=== PATIENT | female | born 1960 | race Caucasian/White ===

== ENCOUNTER 2022-04-23 07:30 | Outpatient (RCR) | payer MEDICARE, BC, SELFPAY ==
--- NOTE | 2022-03-28 08:25 | PT.OPEX ---
PT [place] Outpatient Eval PT [facility] Outpatient Eval Start: 03/28/22 07:15 Freq: Status: Active Protocol: Document 03/28/22 07:15 PAOLA (Rec: 03/28/22 08:21 PAOLA [id number]) E-signed By Krista Rosenberg, PT Physical Therapy Outpatient Evaluation Insurance Information Recert Due Date 06/22/22 Insurance Name Medicare B,Blue [employer] Medical Diagnosis Right shoulder bursitis Treating Diagnosis Right shoulder pain, limited shoulder ROM, gross UE weakness Referring MD Smith Subjective Subjective Paola reports to PT with gradual and insidious onset of right shoulder pain for about 2 months. Pain is located in anterior and lateral aspects of the shoulder. Denies radicular symptoms. Mild R sided neck pain. Pain is aggravated by reaching overhead, lifting >10lb, sleeping on right shoulder and reaching behind her back. Alleviated with heat and tylenol. She has not tried anything else for this yet. 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 PMH: diabetes, depression, fibromyalgia, arthritis, osteoporosis x-ray: AP, Transscapular Y, and Axillary views of the right shoulder were obtained today. These show no glenohumeral joint space narrowing or osteophytic spurring, no proximal migration of the humeral head. No obvious fracture or pathologic lesion. There may be a tiny focus of calcific tendinitis at the supraspinatus insertion, seen only on the axillary view. Pain Comments 8/10 worst reaching and lifting 2-3/10 constant Date of Last Physician Visit 02/26/22 Current Work Status Retired Objective Other/Pertinent Objective IE: Standing UE AROM (R/L): -ER0: 70/70 no pain -Abd: 112 painful/168 -FF: 105 painful/170 -Functional IR: T10 painful/T3 -Functional ER occiput difficult to achieve position/ C7 PROM R -flexion 112 empty end feel, painful -abd 115 empty end feel, painful UE Strength (R/L): -ER0: R: 4+/5 no pain, L: 4+/5 -IR0: R: 5/5 no pain, L: 5/5 -FF: R: 4-/5 anterior shoulder pain, L: 5/5 -Abduction: R: 4-/5 lateral shoulder pain, L: 4+/5 -Mid Trap: R: 4/5, L: 4+/5 -Lower Trap: R: 4-/5, L: 4+/5 Impingement: -[place]: + R Labral: -Modified Tnog?s: - Bicep Tendon: -Speeds: + R Rotator Cuff: -Drop Arm Test: - -ER Lag:- -Belly Press:- Instability: -A/P load and shift: - Functional Test Performed & Score QuickDASH IE: 63.6 Assessment Assessment/Impression Patient is a 62 year old female presenting to physical therapy for evaluation and treatment of right shoulder pain. Patient presents with Right shoulder pain, limited shoulder ROM, gross UE weakness consistent with shoulder impingement and bicep /supraspinatus tendonitis. These impairments are limiting the patients ability to reach overhead, reach behind her back, sleep on R shoulder, lift >10lb. Patient appears motivated to participate in PT and presents with good prognosis to improve mobility, strength, proprioception and return to functional activities with skilled physical therapy intervention. Primary Functional Limitations reach overhead, reach behind her back, sleep on R shoulder, lift >10lb Plan of Care Rehabilitation Potential Good Physical Therapy Goals In 4 weeks (04/25/22) Patient demonstrates 145 degrees of shoulder flexion for ability to reach overhead into a high shelf, dress, and bathe without limitation. patient is able to sleep, including on shoulder, with waking 0-1 times per night In 8 weeks (05/23/22) Pt will demonstrate consistent HEP compliance to ensure progress in reaching established goals during course of care. Pt will exhibit 15-20 point improvement in QuickDASH Outcome measure to demonstrate functional improvement and progress towards goals. Pt will exhibit RC, GH, and periscapular strength no less than 4+/5 in order to lift and carry up to 20lb Treatment Plan/Direct Interventions Joint Mobilization,Manual Therapy,Neuromuscular Re-ed, Self-Care/Home Management, Therapeutic Activities, Therapeutic Exercises Frequency/Duration 1x/wk for 4 weeks with additional 4 sessions prn based on progress Patient Will Be Discharged From Therapy Completion of LTG(s), Independent w/HEP, Independently Progressing Evaluation Billing Untimed Code Treatment Minutes 25 Complexity Low Certification Information Initial Certification Date 03/28/22 Ending Certification Date 06/22/22 Provider Signature Shows Agreement With POC & Medical Necessity Physician Signature & Date Requested Please Sign/Date Here Physician Comment/Change : Physician NPI Number #
== END 2022-04-23 12:42 | disposition home or self-care (01) ==
PROVIDERS: PCP Family Medicine; Visit Provider Orthopaedic Surgery
DX: M75.51 Bursitis of right shoulder (principal); Z51.89 Encounter for other specified aftercare
CPT/HCPCS: 97110; 97161

== ENCOUNTER 2022-07-16 15:03 | Emergency (ER) | payer MEDICARE, BC, SELFPAY ==
[2022-07-16 15:08] VITALS: BP 142/78; RESP 16; TEMP 36.4; O2SAT 99; BMI 24.6
--- NOTE | 2022-07-16 15:15 | ED_ITS ---
HPI - General Adult General Time Seen by Provider: 15:16 Date Seen: 07/16/22 Chief complaint: Neuro Symptoms/Altered Deficit Stated complaint: Slurred speech L side facial droop Time Seen by Provider: 07/16/22 15:04 Source: patient Mode of arrival: ambulatory Limitations: no limitations History of Present Illness HPI narrative: Patient is a 62-year-old female has been having difficulty eating with drooling out of her left mouth, some slurring of her speech for about 2 weeks. She was at her therapist this morning whom prompted her to get evaluated. She contacted the clinic and they referred her here. She has had symptoms for 2 weeks now. She did not bring it up but when asked her if her left eye is bothering her or feeling dry, she did admit that it feels dry. There is no head trauma, no fevers chills, no history of Lyme disease, no palpitations or sense of irregular heartbeat. When questioned about arms and legs working fine, she states she is limping on her left side. She states she is not having any pain. She is notably walking normal here when I watch her. Does not note any loss of taste on the left side but states she has only been chewing on the right side of her mouth with these symptoms. Denies any ear pain or ear symptoms with this. She feels at times she is having difficulty with getting words out as she mumbles them or cannot articulate them as well. Related Data Home Medications Medication Instructions Recorded Confirmed albuterol sulfate 90 mcg/actuation g inhalation 02/24/22 02/26/22 aerosol inhaler alprazolam 0.25 mg tablet 0.25 mg PO 02/24/22 02/26/22 atorvastatin 40 mg tablet 40 mg PO 02/24/22 02/26/22 baclofen 10 mg tablet 10 mg PO 02/24/22 02/26/22 hyoscyamine sulfate 0.125 mg 0.125 mg PO 02/24/22 02/26/22 sublingual tablet lamotrigine 100 mg tablet 100 mg PO 02/24/22 02/26/22 lansoprazole 30 mg capsule,delayed 30 mg PO 02/24/22 02/26/22 release levothyroxine 88 mcg tablet 88 mcg PO 02/24/22 02/26/22 meclizine 25 mg tablet 25 mg PO 02/24/22 02/26/22 mirtazapine 7.5 mg tablet 7.5 mg PO 02/24/22 02/26/22 montelukast 10 mg tablet 10 mg PO 02/24/22 02/26/22 montelukast 10 mg tablet 10 mg PO .Bedtime 02/24/22 02/26/22 ondansetron 4 mg disintegrating 4 mg PO PRN 02/24/22 02/26/22 tablet risperidone 0.25 mg tablet 0.25 mg PO 02/24/22 02/26/22 rizatriptan 10 mg tablet 10 mg PO 02/24/22 02/26/22 spironolactone 25 mg tablet 25 mg PO 02/24/22 02/26/22 sucralfate 1 gram tablet 1 g PO 02/24/22 02/26/22 temazepam 30 mg capsule 30 mg PO 02/24/22 02/26/22 Previous Rx's Medication Instructions Recorded prednisone 20 mg tablet 60 mg PO DAILY 7 days #21 tabs 07/16/22 Allergies Allergy/AdvReac Type Severity Reaction Status Date / Time dapagliflozin [From [facility]] Allergy Severe infections Verified 07/16/22 15:12 adhesive Allergy Verified 07/16/22 15:12 aripiprazole Allergy Verified 07/16/22 15:12 aspirin Allergy Verified 07/16/22 15:12 caffeine Allergy Verified 07/16/22 15:12 codeine Allergy Verified 07/16/22 15:12 fluconazole Allergy Verified 07/16/22 15:12 iodine Allergy Verified 07/16/22 15:12 metformin Allergy Verified 07/16/22 15:12 oxcarbazepine Allergy Verified 07/16/22 15:12 pregabalin Allergy Verified 07/16/22 15:12 Quinolones Allergy Verified 07/16/22 15:12 rosuvastatin Allergy Verified 07/16/22 15:12 Sulfa (Sulfonamide Allergy Verified 07/16/22 15:12 Antibiotics) tramadol Allergy Verified 07/16/22 15:12 verapamil Allergy Verified 07/16/22 15:12 Theophyllines Allergy Uncoded 02/26/22 08:49 Review of Systems Status of ROS: Reports: 6 or more systems reviewed and unremarkable except as noted in History and below [facility] Medical History Asthma Dermatomycosis Diabetes Fibromyalgia Foreign body Gastroesophageal reflux Generalized anxiety disorder History of benign breast biopsy Hyperlipidemia Hypothyroidism Irritable bowel syndrome Major depressive disorder Obstructive sleep apnea Osteopenia Recurrent headache Sacral nerve stimulator present Surgical History H/O arthroplasty (11/18/18) H/O elbow surgery (12/11/89) H/O tubal ligation H/O: hysterectomy History of appendectomy History of arthroscopic knee surgery History of arthroscopy of left shoulder (11/10/13) History of arthroscopy of right shoulder (09/28/90) History of cholecystectomy History of tonsillectomy 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 Const: Vital Signs, click to edit/add: Vital Signs - 24 hr 07/16/22 15:08 Temperature 97.5 F L Respiratory Rate 16 Blood Pressure [Ri ght Upper Arm] 142/78 H Pulse Oximetry 99 Oxygen Delivery Me thod Room Air Documenting provider has reviewed patient's vital signs: yes Common normals: no apparent distress, oriented x3, no limitations, healthy appearing, alert and well nourished General appearance: cooperative, comfortable, well kempt and well developed Orientation/consciousness: Yes awake, Yes oriented to person, Yes oriented to place and Yes oriented to time HENMT: Common normals: normocephalic, head/scalp atraumatic, hearing grossly normal bilaterally, external ears normal, EAC's normal, TM's normal bilaterally, external nose normal, nasal mucous membranes and turbinates normal, moist oral mucous membranes, oropharynx normal (Tongue protrudes midline, palate elevates symmetrically), dentition normal and gingiva normal Head and scalp: normocephalic and atraumatic Nose: external nose normal and nasal mucous membranes and turbinates normal External ear: external ears normal External auditory canal: EAC's normal Tympanic membrane: TM's normal bilaterally Eye: Common normals: PERRL, EOMs intact bilaterally, conjunctivae normal and no scleral icterus Conjunctiva: conjunctiva(e) normal Pupil: PERRL Other: Has some mild ptosis left eyelid but can close this eyelid completely at this t lan. Can raise both eyebrows. Do note that there is leg eating of the blink reflex on the left at baseline when compared to the right eye. Neck & C-Spine: Common normals: full ROM, no lymphadenopathy, supple, no meningeal signs, no JVD and thyroid normal Thyroid: thyroid normal Resp: Common normals: normal respiratory effort, no retractions, no use of accessory muscles and clear to auscultation bilaterally Auscultation: clear to auscultation bilaterally Cardio: Common normals: no JVD, regular rate, regular rhythm, S1 normal heart sound, S2 normal heart sound, no gallops, no clicks and no murmurs Rate: regular rate Rhythm: regular rhythm Heart sounds: S1 normal and S2 normal GI: Common normals: Normal to inspection, nondistended, normoactive bowel sounds present, soft to palpation, non-tender, no hepatosplenomegaly and no mass es Palpation: soft and no hepatosplenomegaly Extremity: Other: No lower extremity edema. Neuro: Tereso Coma Scale: document GCS findings Tereso coma scale eye opening: Spontaneous (4) [place] coma scale verbal response: Orientated (5) [place] coma scale motor response: Obey commands (6) [place] coma scale total score: 15 Common normals: oriented x3 and moves all extremities Sensorium/orientation: awake, alert, oriented to person, oriented to place and oriented to time Meningeal signs: no meningeal signs Gait (neuro): normal gait Other: Observed walking in her gait is normal. It is not wide-based. She can heel and toe walk without any difficulty. Upper and lower extremity seem to have symmetrical strength. She has mild drooping of the left corner of her mouth when I have her smile. Baseline just looking at her I do not know that I would of picked up on any facial asymmetry until I ask her to smile. Speech at times is a little less articulate or cyst think it but is able to speak in complete sentences. Psych: Appearance: well kempt Course Course Hospital Course: Given that she has had symptoms for about 2 weeks, head CT noncontrast should be sufficient here at this time. Main differential is Ralph's palsy versus a CVA. Her Ralph's palsy could already be improving if that is what this actually is. She can raise her eyebrows but that can be preserved in Ralph's palsy in some patients. It also could be improving Ralph's palsy at this point given she is 2 weeks in. I did contact our ENT Dr. Arroyo and he still would advise steroids for treatment even 2 weeks in if we do rule out stroke. Reevaluation(s) Reevaluation #1: Have reviewed that the head CT is not showing any evidence of acute ischemia or infarction. She has had her symptoms for 2 weeks now and it is conceivable that she is already improving from her Ralph's palsy. Overall she seems to have more mild symptoms at this point. Have reviewed the current literature with recommendations for treating as close to time of diagnosis is possible but that our ENT physician recommended that we still proceed with steroids. Did review that this may increase her sugars. Went over other side effects of steroid use. Time: 16:09 Vital Signs Vital signs: Initial Vital Signs Temperature 97.5 F L 07/16/22 15:08 Temperature Source Temporal Artery Scan 07/16/22 15:08 Respiratory Rate 16 07/16/22 15:08 Blood Pressure 142/78 H 07/16/22 15:08 Blood Pressure Mean 99 07/16/22 15:08 Blood Pressure Position Sitting 07/16/22 15:08 Pulse Oximetry 99 07/16/22 15:08 Oxygen Delivery Method 07/16/22 15:08 Vital Signs Temperature 97.5 F L 07/16/22 15:08 Respiratory Rate 16 07/16/22 15:08 Blood Pressure 142/78 H 07/16/22 15:08 Pulse Oximetry 99 07/16/22 15:08 Oxygen Delivery Method 07/16/22 15:08 Temperature 97.5 F L 07/16/22 15:08 Respiratory Rate 16 07/16/22 15:08 Blood Pressure 142/78 H 07/16/22 15:08 Pulse Oximetry 99 07/16/22 15:08 Oxygen Delivery Method 07/16/22 15:08 Medical Decision Making Imaging Data CT scan - head: Attestation: I have reviewed the pertinent imaging results. My impression: A my preliminary review of her head CT, I do not appreciate any acute pathology but will be awaiting Radiology over-read. Radiologist's impression: Patient: NATE KEVIN Facility:?[facility] Patient ID:?[id number] Site Patient ID:?[id number]. Site :?[id number] Study:?CT Head W/O-07/16/2022 3:43:33 PM Ordering Physician:?Guanaco Morel Final Report: INDICATION: Slurred speech. Left facial droop. TECHNIQUE: CT head without contrast. COMPARISON: October 12, 2021. FINDINGS: CSF spaces: Within normal limits for age. Brain parenchyma and extra-axial spaces: The monae-white differentiation is normal. No sign of mass, hemorrhage, or midline shift. No extra-axial fluid collection. Skull base and calvarium: New inflammatory changes in the right maxillary sinus. The visualized orbits are grossly unremarkable. No skull fractures. IMPRESSION: No acute intracranial abnormality. No sign of acute ischemia or intracranial hemorrhage. New inflammatory changes in the right maxillary sinus. Please note that all CT scans at this facility use dose modulation, iterative reconstruction, and/or weight-based dosing when appropriate to reduce radiation dose to as low as reasonably achievable. Dictated by Brandyn Mckeon MD @ 07/16/2022 4:01:02 PM (Electronic Signature) Critical Care Time Critical Care Time Critical Care Time: No Discharge Plan Discharge Clinical Impression: Ralph's palsy Patient Disposition: Home, Self-Care Condition: Stable Instructions: Ralph Palsy (ED) Additional Instructions: Start prednisone and take as prescribed. Take prednisone with food, this will help protect her stomach from side effects from the prednisone. Prednisone is likely to increase your sugars, may need increased monitoring and talk to your primary care provider about any complications with this. Need to schedule a visit with your eye doctor to make sure your left eye a has sustained no damage. Recommend using lubricating eyedrops every hour while awake. It seems that your eye is able to completely close and would anticipate that it is closing at night. Schedule routine follow-up with your primary care provider as well, if ongoing symptoms from Ralph's palsy, ENT referral can be considered at some point. Activity Level: Activity as Tolerated Prescriptions: New prednisone 20 mg tablet 60 mg PO DAILY 7 Days Qty: 21 0RF No Action mirtazapine 7.5 mg tablet 7.5 mg PO ondansetron 4 mg tablet,disintegrating 4 mg PO PRN montelukast 10 mg tablet 10 mg PO montelukast 10 mg tablet 10 mg PO .Bedtime levothyroxine 88 mcg tablet 88 mcg PO Label Comments: TAKE 1 TABLET BY MOUTH EVERY DAY rizatriptan 10 mg tablet 10 mg PO atorvastatin 40 mg tablet 40 mg PO albuterol sulfate 90 mcg/actuation HFA aerosol inhaler inhalation alprazolam 0.25 mg tablet 0.25 mg PO risperidone 0.25 mg tablet 0.25 mg PO lansoprazole 30 mg capsule,delayed release(DR/EC) 30 mg PO Label Comments: TAKE 1 CAPSULE (30 MG) BY MOUTH ONCE DAILY BEFORE A MEAL. hyoscyamine sulfate 0.125 mg tablet, sublingual 0.125 mg PO Label Comments: PLACE 1 TABLET (0.125 MG) UNDER THE TONGUE EVERY 4 HOURS IF NEEDED FOR COLIC FOR UP TO 30 DOSES. spironolactone 25 mg tablet 25 mg PO Label Comments: TAKE 1 TABLET BY MOUTH TWICE A DAY meclizine 25 mg tablet 25 mg PO Label Comments: TAKE 1 TABLET (25 MG) BY MOUTH 3 TIMES DAILY IF NEEDED FOR VERTIGO. sucralfate 1 gram tablet 1 g PO lamotrigine 100 mg tablet 100 mg PO temazepam 30 mg capsule 30 mg PO baclofen 10 mg tablet 10 mg PO Follow Up/Referrals: Cecilia Hercules MD [Primary Care Provider] - Stand Alone Forms: [facility] Info Instructions
--- NOTE | 2022-07-16 15:22 | CRLHL7_ITS ---
For Patients: As a result of the Century Cures Act, medical imaging exams and procedure reports are released immediately into your electronic medical record. You may view this report before your referring provider. If you have questions, please contact your health care provider. INDICATION: Slurred speech. Left facial droop. TECHNIQUE: CT head without contrast. COMPARISON: October 12, 2021. FINDINGS: CSF spaces: Within normal limits for age. Brain parenchyma and extra-axial spaces: The monae-white differentiation is normal. No sign of mass, hemorrhage, or midline shift. No extra-axial fluid collection. Skull base and calvarium: New inflammatory changes in the right maxillary sinus. The visualized orbits are grossly unremarkable. No skull fractures. IMPRESSION: No acute intracranial abnormality. No sign of acute ischemia or intracranial hemorrhage. New inflammatory changes in the right maxillary sinus. Please note that all CT scans at this facility use dose modulation, iterative reconstruction, and/or weight-based dosing when appropriate to reduce radiation dose to as low as reasonably achievable. Dictated by Brandyn Mckeon MD @ 07/16/2022 4:01:02 PM (Electronically Signed)
== END 2022-07-16 16:28 | disposition home or self-care (01) ==
LOC: ED 16:20
PROVIDERS: Emergency Provider Family Medicine; PCP Family Medicine
DX: G51.0 Bell's palsy (principal)
CPT/HCPCS: 70450; 99283; 99284

== ENCOUNTER 2023-01-27 06:31 | Outpatient (CLI) | payer MEDICARE, BC, SELFPAY ==
--- OUTSIDE RECORDS SUMMARY | 2023-01-27 06:33 | XMS_ITS | Continuity of Care Document ---
Author Name Unknown Organization [facility] Address [address] [place] [address] Phone Care Team Providers Care Manager Supply Chain Name Role Phone Fabiana DELGADO, Leif Unavailable Unavailable Allergies, Adverse Reactions, Alerts Substance Reaction Status Criticality metformin Active No Information pregabalin Active No Information aripiprazole Active No Information ergotamine Active No Information Sulfa (Sulfonamide Antibiotics) Active No Information morphine Active No Information aspirin Active No Information Medications Medication Instructions Dosage Effective Dates (start - stop) Status Comments CONZIP (unknown strength) Not Available - Active PRAZOSIN HCL (unknown strength) Not Available - Active DIAZEPAM (unknown strength) Not Available - Active COLESTID (unknown strength) Not Available - Active TIROSINT (unknown strength) Not Available - Active EFFEXOR XR (unknown strength) Not Available - Active LANTUS (unknown strength) Not Available - Active HUMALOG (unknown strength) Not Available - Active Procedures Procedure Date Office/Outpatient Visit,Est, Mod 2014 Office/Outpatient Visit,New, [facility] 2013 X-Ray Exam Of Neck Spine2-3 Views Office/outpatient visit,[facility], low 2010 Office/outpatient visit,[facility], low 2008 X-ray exam of neck spine2-3 views Office/outpatient visit,est, low 2008 [place] [facility] [place] exam lower spine 2-3 views 2008 Office/outpatient visit,[facility], low 2007 X-ray exam lower spine 2-3 views 2007 Office/outpatient visit,est, low 2007 X-ray exam lower spine 2-3 views 2007 Postop followup visit X-ray exam lower spine 2-3 views 2007 Lumbar spine fusion, posterolateral Spine fusion, each add'lvertebra 2007 Insert spine seg fix, post, 3-6 seg [place] Lumbar spine fusion w/bone graft [place] Spinal fusion, ea add'l interspac e Apply spinal prosthetic device 08 Decompress lumbar spinalcord seg 2007 PA Assist Lumbar spine fusion, posterola teral PA Assist Spine fusion, each add'lverteb ra PA Assist Insert spine seg fix, post, 3- 6 seg PA Assist Decompress lumbar spinalcord s eg Office/outpatient visit,est, low 2006 Office consultation, moderate 7 X-ray exam lwr spine, min 4 views Advance Directives Directive Yes / No Effective Date File Name No Information Encounters Encounter Description Practice Location Reason(s) For Visit Diagnoses Date Provider Providers Copied on Encounter [facility], [address], [place], [place], [id number], [place] tel:[phone] [facility] No Information 8201 6 Fabiana Awan [facility], [address] [place] [address], [id number] , [place]. tel:[phone] Office/Outpat ient Visit,Est, Mod [facility], [address], [place], [place], [id number], [place] tel:[phone] [facility] - [facility] Cervical spondylosis 0-201 5 Fabiana Awan [facility], [address] [place] [place] [address], [id number] , [place]. tel:[phone] Referring Provider: Leif Jung, [facility] [address] [place], [place] [address] [place], [place], [address] . tel:[phone] Office/Outpat ient Visit,New, Low [facility], [address] [place] [address] [address], [place], [address], [place] tel:[phone] [facility] No Information 4 Mehbod Amir. [facility], [address] [place] [address] [address], [place], [place], [id number] , [place]. tel:[phone] Referring Provider: Pepito Herring, [address], [address]. tel:[phone] Office/outpat ient visit,est, low [facility], [address] [place] [address], [place], [place], [facility], tel:[phone] [facility] No Information 1 Mehbod Amir. [facility], [address] [place] [address] [address], [place], [place], [id number] , [place]. tel:[phone] Referring Provider: Pepito Herring [address], [address]. tel:[phone] Office/outpat ient visit,est, low [facility], [address] [facility], [place], [place], [facility], [place] tel:[phone] [facility] No Information 3-200 9 Mehbod Amir. [facility], [address] [place] [address] [address], [place], [place], [id number] , [place]. tel:[phone] Referring Provider: Pepito Herring [address], [address]. tel:[phone] Office/outpat ient visit,est, low [facility], [address] [place], [place] [address], [place], [address], [place] tel:[phone] [facility] No Information 6-200 9 Mehbod Amir. [facility], [address], [place], [place], [id number] , [place]. [phone] Referring Provider: Pepito Herring [address], [address]. tel:[phone] Office/outpat ient visit,est, mod [facility], [address] [place] [address], [address], [place] tel:[phone] [facility] No Information 5200 9 Mehbod Amir. [facility], [address], [place], [place], [id number] , [place]. [phone] Referring Provider: Pepito Herring [address], [address]. tel:[phone] Office/outpat ient visit,est, low [facility], [address] [place] [address], [facility], [place] tel:[phone] [facility] No Information 4200 8 Mehbod Amir. [facility], [address], [place], [place], [id number] , [place]. [phone] Referring Provider: Pepito Herring [address], [address]. tel:[phone] Office/outpat ient visit,est, low [facility], [address] [place], [place] [address]ite [facility], [place], [address], [place] tel:[phone] [facility] No Information 200 8 Mehbod Amir. [facility], [address], [place], [place], [id number] , [place]. [phone] Referring Provider: Pepito Herring [address], [address]. tel:[phone] Z [facility], [address] [place] [address], [facility], [place] tel:[phone] [facility] No Information 8 Mehbod Amir. [facility], [address] [place] [address] [address], [place], [id number] , [place]. [phone] Referring Provider: [facility] [address], [address]. tel:[phone] Z [facility], [address] [place] [address], [place], [facility], [place] tel:[phone] [facility] No Information 8 Mehbod Amir. [facility], [address] [place] [address] [address], [place], [id number] , [place]. [phone] Referring Provider: [facility] [address], [address]. tel:[phone] Office/outpat ient visit,est, low [facility], [address] [place] [address], [facility], [place] tel:[phone] [facility] No Information 7 Mehbod Amir. [facility], [address] [place] [address] [address], [place], [place], [id number] , [place]. [phone] Referring Provider: [facility] [address], [address]. tel:[phone] Office consultation, moderate Z [facility], [address] [place] [address], [facility], [place] tel:[phone] [facility] No Information 7 Mehbod Amir. [facility], [address] [place] [address], [place], [id number] , [place]. tel:[phone] Referring Provider: [facility] [address], [address]. tel:[phone] Family History Family Member Type Diagnosis Age At Onset Problem (finding) Problem (finding) Payers Payer name Insurance type Covered libertarian ID Authoriza tion(s) No Information Social History Type Description Quantity Date Captured Comments Sex Female Smoking Status No Information Chief Complaint And Reason For Visit No Information Reason For Referral Reason For Referral No Information Plan Of Treatment Date Type Action Status Future Order: Radiology Order F/ E Cervical (F/Ecervical), Ordered on: Ordered History Of Present Illness Encounter Date Complaint History Of Prese nt Illness No Information Functional Status Date Functional Assessmen t No Information Instructions Date Instruction Additional Infor mation No Information Assessments Type Assessment Date No Information Patient Care Teams Name Effective Dates (start - stop) Status Members No Information
--- OUTSIDE RECORDS SUMMARY | 2023-01-27 06:34 | XMS_ITS | Patient Health Record ---
Author Name Unknown Organization [facility] Address [address] [place], [place] [address] Care Team Providers Care Chemist Steroids Name Role Phone Bhavesh Baltazar Primary Care Provider ALLERGIES Allergen (clinical drug ingredient) Drug/Non Drug Allergy documented on EMR Reaction Allergy Type Onset Date Status Latex Latex (uncoded) hives Allergy Acti ve aspirin Aspirin Unknown Drug Allergy Active Codeine Phosphate Unknown Drug Allergy Active Sulfacet-R Unknown Drug Allergy Active REASON FOR REFERRAL No Information MEDICATIONS Medication SIG (Take, Route, Frequency, Duration) Notes Start Date End Date Status NovoLIN R 100 UNIT/ML as directed Injection uses qid on a sliding scale Active tiZANidine HCl 4 MG 1 tablet as needed Orally Three times a day Active Lipitor 40 MG 1 tablet Orally Once a day Active Synthroid 88 MCG 1 tablet on an empty stomach in the morning Orally Once a day Active Singulair 10 MG 1 tablet in the evening Orally Once a day Active Maxalt 10 MG 1 tablet as needed one time Orally Once a day Active clonazePAM 0.5 MG 1 tablet at bedtime Orally Once a day Active Albuterol inhaler as needed Active Spironolactone 25 MG TAKE 1 TABLET BY MOUTH TWICE A DAY for 90 Active Trulicity 1.5 MG/0.5ML as directed Subcutaneous once weekly Active SOCIAL HISTORY Tobacco Use: Social History Observation Description Date Details (start date - stop date) Never Smoker NA - NA Sex Assigned At : Social History Observation Description Sex Assigned At Unknown Tobacco Use/Smoking Question Answer Notes Are you a nonsmoker Alcohol Screen (Audit-C) Question Answer Notes Did you have a drink containing alcohol in the p ast year? No Points 0 Interpretation Negative Sexual History Question Answer Notes Had sex in the past 12 months (vaginal, oral, or anal)? Yes PROBLEMS Problem Type ICD Code Onset Dates Problem Status W/U Status Risk SNOMED Code Notes Problem Stress incontinence (female) (male) (N39.3) Active confirmed SI - Stress incontinence (18389795) Problem Urge incontinence (N39.41) Active confirmed Urge incontinen ce of urine (94825168) Problem Mixed incontinence (N39.46) Active confirmed Mixed incontine nce (555155178) Problem Menopausal and female climacteric states (N95.1) Active confirmed Menopause (575978544) Problem Unspecified menopausal and perimenopausal disorder (N95.9) Active confirmed Menopausal and postmenopausal disorders (985234188) Problem Chronic bladder pain (R39.82) Active confirmed 70078938 Problem Urinary incontinence, unspecified type (R32) Active confirmed 651537802 Problem Dyspareunia in female (N94.10) Active confirmed 20562652 Problem Climacteric (N95.1) Active confirmed Menopause (831899971) Problem Urinary incontinence with continuous leakage (N39.45) Active confirmed 132257732 Problem Post-menopausal atrophic vaginitis (N95.2) Active confirmed Atrophic v aginitis (06571002) Problem Urinary incontinence, nocturnal enuresis (N39.44) Active confirmed 1066333 Problem Complete fecal incontinence (R15.9) Active confirmed [id number] PLAN OF TREATMENT Pending Test Test Name Order Date ESTRADIOL 02/11/2021 FSH 02/11/2021 TESTOSTERONE, TOTAL, LC/MS/MS 02/11/2021 Insurance Providers Payer Name Payer Address Payer Phone Subscriber Number Group Number Insured Name Patient Relationship to Insured Coverage Start Date Coverage End Date Blue Cross Blue Shield Medicare [address] [address] [place], [place] [id number] NATE KEVIN Self - patient is the insured Medicare (Ins. Bill) [address] [place], [place] [id number] NATE KEVIN Self - patient is the insured MEDICAL (GENERAL) HISTORY Medical History History ICD Code Night Terrors (history of childhood abus e) High Cholesterol Bladder infections Arthritis Migraines Depression/Anxiety Diabetes on insulin Asthma Thyroid Problems morbid obesity fibromyalgia/ chronic pain syndrome- [facility] [place] [facility] Disability due to chronic migraines a nd fibromyalgia pain Surgical History Surgery Date(Month/Year) Tonsilectomy 1965 Hysterectomy RSO 1985 Gallbladder 2002 Back Surgery 2005 Back Surgery 2010 Back surgery 2011 Interstim for fecal incontinence 2012[facility] 2012 Knee replacment 2014 Left Sholder Surgery 2015 Knee replacement 2015 Heart Moniter 2016 Torn ligaments in foot 2017 Torn ligaments in foot 2018 Left thumb surgery 10/2018 Reun Y gastric surgery 05/2019 Abdominoplasty 08/2019
--- OUTSIDE RECORDS SUMMARY | 2023-01-27 06:34 | XMS_ITS | Continuity of Care Document ---
Author Name Unknown Organization [facility] Address [address] [address] [place] [address] Phone Care Team Providers Care Computer Consultant Name Role Phone Salvador Mcknight MD, Parker Unavailable Unavailabl e Allergies, Adverse Reactions, Alerts Substance Reaction Status Criticality verapamil hives(moderate) Active No Informati on adhesive tape rash(moderate) Active No Informati on metformin vomitting, diarrhea(moderate) Active No Information rosuvastatin hives(moderate) Active No Informati on pregabalin hives(moderate) Active No Informati on aripiprazole chest pain(severe) Active No Inform ation Sulfa (Sulfonamide Antibiotics) Swelling Active No Information levetiracetam Active No Information mirtazapine Active No Information ergotamine Active No Information fluconazole Active No Information sodium iodide Active No Information povidone-iodine Active No Informati on iodoform Active No Information POTASSIUM IODIDE Active No Informat ion IODINE Active No Information SODIUM IODIDE Active No Information caffeine Active No Information CIPROFLOXACIN HCL shelton skin Active No Informa tion ciprofloxacin shelton skin Active No Information aspirin Hives Active No Information codeine Hives Active No Information Medications Medication Instructions Dosage Effective Dates (start - stop) Status Comments Trintellix 20 mg tablet take 1 tablet by oral route 2 times every day at the same time each day 20 MG - Active spironolactone 25 mg tablet take 1 tablet by oral route 2 times every day 25 MG - Active temazepam 22.5 mg capsule take 1 capsule by oral route every day at bedtime 22.5 MG - Active atorvastatin 40 mg tablet take 1 tablet by oral route every day 40 MG - Active TIROSINT (unknown strength) take 1 by Oral route every day Not Available - Active Vitamin D3 5,000 unit tablet take 1 by Oral route every day 1 - Active Lomotil 2.5 mg-0.025 mg Tab Take one-two tablets by mouth four times per day as needed - Active ALBUTEROL (unknown strength) as needed Not Available - Active Procedures Procedure Date Esophageal Motility Study Offic/outpt E&m Estab Low-mod 6 Routine Serum Collection Gg; Iga, Igd, Igg, Igm, Ea Bld Ct; Hg/pltlt Ct Auto/compl 16 Hepatic Function Panel Medical nutrition therapy, initial, each 15 minutes Offic/outpt E&m Estab Low-mod 5 Offic/outpt E&m Estab Low-mod 5 Sigmoidoscopy Flex; W/bx /mx 5 Ugi Endo; W/bx 1/mx Level Iv-surg Path Gross/micro 15 Offic/outpt E&m New Mod-hi Offic/outpt E&m Estab Low-mod 0 G8447 Sigmoidoscopy Flex; W/bx 1/mx 9 Level Iv-surg Path Gross/micro 09 Offic/outpt E&m Estab Low-mod 9 [id number] Offic/outpt E&m Estab Low-mod 8 Small Intestinal Imaging Offic/outpt E&m Estab 5 Min Routine Serum Collection Offic/outpt E&m Estab Low-mod 7 Offic/outpt E m Estab Low Offic/outpt E m Estab Min Offic/outpt E m Estab Mod Offic/outpt E m Estab Mod Colonoscopy Flex; W/bx / Offic/outpt E m Estab Mod Advance Directives Directive Yes / No Effective Date File Name No Information Encounters Encounter Description Practice Location Reason(s) For Visit Diagnoses Date Provider Providers Copied on Encounter [facility], [address] [address], [place], [id number], [place] tel:[phone] [facility] No Information 3 Salvador Canales. [address] [facility], [address], [id number], [place]. tel:[phone] [facility], [address] [address], [place], [id number], [place] tel:[phone] [facility] GI Symptoms or Concerns (chief complaint) Nausea and vomiting, intractabili ty of vomiting not specified, unspecified vomiting type 1 Steve Stockton. [address] [facility], [address], [id number], [place]. tel:[phone] Dinorah eBaver MD. tel:[phone] ng Provider: Referral Self. [facility], [address] [address], [place], [id number], tel:[phone] [facility] No Information 1 Isaias Morales. [address] [facility], [address], [id number], [place]. tel:[phone] Offic/outpt E&m Estab Low-mod [facility], [address] [address], [place], [id number], [place] tel:[phone] [facility] GI Symptoms or Concerns (chief complaint) Right upper quadrant painDiarrhea Dietary counseling and surveillance Elevated blood-pressu re reading, w/o diagnosis of htn 6 Tristan Flor. [address] [facility], [address], [id number], [place]. tel:[phone] Dinorah Beaver MD. tel:[phone] ng Provider: Dinorah Rodrigues, [address] [place], [address]. tel:[phone] [facility], [address] [address], [place], [id number], [place] tel:[phone] [facility] Epigastric Pain Apr-2 9 5 Willy Marie. [address] [facility], [facility] [address], [place], [id number], [place]. tel:[phone] Dinroah Beaver MD. tel:[phone] ng Provider: Dinorah Rodrigues, [address] [place], [address]. tel:[phone] [facility], [address] [address], [place], [id number], [place] tel:[phone] [facility] Abd Pain Generalized Mar-3 0-201 5 Tristan Flor. [address] [facility], [facility] [address], [place], [id number], [place]. tel:[phone] Dinorah Beaver MD. tel:[phone] Offic/outpt E&m Estab Low-mod [facility], [address] [address], [place], [id number], [place] tel:[phone] [facility] GI Symptoms or Concerns (chief complaint) Epigastric PainConstipa tion UnspecifiedG astroparesis Dietary Surveil/coun tia Jul-2 6201 5 Tristan Flor. [address] [place] [address], [facility] [address], [place], [id number], [place]. tel:[phone] Dinorah Beaver MD. tel:[phone] ng Provider: Dinorah Rodrigues, [address] [place], [address]. tel:[phone] [facility], [address] [address], [place], [id number], [place] tel:[phone] [facility] Abd Pain Generalized Jul-2 5- 5 Tristan Flor. [address] [facility], [facility] [address], [place], [place], [id number], [place]. tel:[phone] Offic/outpt E&m Estab Low-mod [facility], [address] [address], [place], [id number], [place] tel:[phone] [facility] GI Symptoms or Concerns (chief complaint) Gastroparesi sConstipatio n UnspecifiedD ietary Surveil/coun selGastropar esisConstipa tion, unspecifiedD ietary counseling and surveillance 5 Shahbaz Bush. [address], [id number], [place]. tel:[phone] Dinorah Beaver MD. tel:[phone] ng Provider: Dinorah Rodrigues, [address] [place], [address]. tel:[phone] [facility], [address] [address], [place], [id number], [place] tel:[phone] [facility] DiarrheaDiar rheaNausea and vomitingDiar rheaDiarrhea Nausea And Vomiting Jul-0 9 5 Jamir Gaviria. [address] [facility] [address], [place], [place], [id number], [place]. tel:[phone] Referring Provider: Dinorah Rodrigues, [address] [facility], [place], [address]. tel:[phone] Offic/outpt E&m New Mod-hi [facility], [address] [address], [place], [id number], [place] tel:[phone] [facility] GI Symptoms or Concerns (chief complaint) Nausea And VomitingDiar rheaDietary Surveil/coun tia Jul-0 2- 5 Tristan Flor. [address] [address], [place], [place], [id number], [place]. tel:[phone] Graciela caal MD. tel:[phone] Beaver MD. tel:[phone] ng Provider: Dinorah Beaver MD E, [address] [place] [address], [address]. tel:[phone] Offic/outpt E&m [facility] Low-mod [facility], [address] [address], [place], [id number], [place] tel:[phone] [facility] Diarrhea (chief complaint) DiarrheaDiar carol Apr-0 0 No Information Referring Provider: Graciela Shaikh, [address], [place], [address]. tel:[phone] [facility], [address] [address], [facility], [place], [id number], [place] tel:[phone] [facility] Hemorrhoids NosDiarrheaR ectal Bleed/BRBPRH emorrhoids Nos Apr-0 200 9 Claudy Mayo. [address], [id number], [place]. tel:[phone] Referring Provider: Graciela Shaikh, [address], [place], [address]. tel:[phone] Offic/outpt E&m [facility] Lowmod [facility], [address] [address], [facility], [place], [id number], [place] tel:[phone] [facility] Medication Refill (chief complaint) DiarrheaDiar carol Apr-0 1200 9 Claudy Mayo. [address], [id number], [place]. tel:[phone] Referring Provider: Graciela Shaikh, [address], [place], [address]. tel:[phone] Offic/outpt E&m Estab Low-mod [facility], [address] [address], [place], [place], [id number], [place] tel:[phone] [facility] Diarrhea Apr-0 7-200 8 Claudy Mayo. [facility] [address], [id number], [place]. tel:[phone] Referring Provider: Maria Esther Dean, [address] [place] [address], [address]. tel:[phone] [facility], [address] [address], [place], [place], [id number], [place] tel:[phone] [facility] DiarrheaInco ntinenc-no Awareness May-0 7-200 7 Claudy Mayo. [address] [place] [address], [place], [place], [id number], [place]. tel:[phone] Referring Provider: Graciela Shaikh, [address], [place], [address]. tel:[phone] Offic/outpt E&m Estab 5 Min [facility], [address] [address], [place], [place], [address], [place] tel:[phone] [facility] Diarrhea May-0 4-200 7 Claudy Mayo. [facility] [address], [place], [place], [id number], [place]. tel:[phone] Referring Provider: Graciela Shaikh, [address], [place], [address]. tel:[phone] Offic/outpt E&m Estab Low-mod [facility], [address] [address], [place], [place], [id number], [place] tel:[phone] [facility] DiarrheaInco ntinenc-no Awareness May-0 1-200 7 Claudy Mayo. [address], [id number], [place]. tel:[phone] Referring Provider: Graciela Shaikh, [address], [place], [address]. tel:[phone] Offic/outpt E m Estab Low [facility], [address] [address], [place], [id number], [place] tel:[phone] [facility] Diarrhea 6 Claudy Mayo. [address], [id number], [place]. tel:[phone] Referring Provider: Graciela Shaikh, [address], [place], [address]. tel:[phone] Offic/outpt E m Estab Min [facility], [address] [address], [place], [id number], [place] tel:[phone] [facility] Diarrhea Fe 6 Claudy Mayo. [address] [place] [address], [id number], [place]. tel:[phone] Referring Provider: Graciela Shaikh, [address], [place], [address]. tel:[phone] Offic/outpt E m Estab Mod [facility], [address] [address], [place], [address], [place] tel:[phone] [facility] Diarrhea 2200 5 Claudy Mayo. [address] [place] [address], [id number], [place]. tel:[phone] Offic/outpt E m Estab Mod [facility], [address] [address], [place], [id number], [place] tel:[phone] [facility] Diarrhea Jan- 0200 5 Claudy Mayo. [address] [place] [address], [id number], [place]. tel:[phone] Referring Provider: Graciela Shaikh, [address], [place], [address]. tel:[phone] [facility], [address] [address], [place], [place], [id number], [place] tel:[phone] [facility] DiarrheaHema tochezia/graciela lili Jan-0 200 5 No Information Referring Provider: Graciela Shaikh, [address], [place], [address]. tel:[phone] Offic/outpt E m Estab Mod [facility], [address] [address], [place], [place], [id number], tel:[phone] [facility] DiarrheaHema tochezia/graciela lili Dec-200 5 No Information Referring Provider: Graciela Shaikh, [address], [place], [address]. tel:[phone] [facility], [address] [address], [place], [place], [id number], [place] tel:[phone] [facility] No Information 200 4 No Information Referring Provider: Graciela Shaikh, [address], [place], [address]. tel:[phone] Family History Family Member Type Diagnosis Age At Onset First degree family history Problem (finding) No history of Cancer, colon Mother Problem (finding) gallbladder disease Brother Problem (finding) alcoholism Son Problem (finding) Alive and well First degree family history Problem (finding) No Family history of No history of Colon Polyps Mother Problem (finding) Leukemia Father Problem (finding) Alive and well Sister Problem (finding) asthma First degree family history Problem (finding) No history of Ulcerative Colitis First degree family history Problem (finding) No history of Crohn's Mother Problem (finding) peptic ulceration Sister Problem (finding) alcoholism Daughter Problem (finding) alcoholism Immunizations Vaccine Date Status Comments SARS-COV-2 (COVID-19) vaccin e, mRNA, spike protein, LNP, preservative free, 30 mcg/0.3mL dose administered Note: [facility] bi-direct ional interface ; Source: Other Registry SARS-COV-2 (COVID-19) vaccin e, mRNA, spike protein, LNP, preservative free, 30 mcg/0.3mL dose administered Note: [facility] bi-direct ional interface ; Source: Other Registry influenza virus vaccine, unspecified formulation administered Note: [facility] bi-di rectional interface ; Source: Other Registry Rosasuria Qd administered Note: [facility] bi-directional interface ; Source: Other Registry Rosasuria Qd administered Note: [facility] bi-directional interface ; Source: Other Registry tetanus toxoid, reduced diphtheria toxoid, and acellular pertussis vaccine, adsorbed administered Note: [facility] bi-direct ional interface ; Source: Other Registry Rosasuria Qd administered Note: [facility] bi-directional interface ; Source: Other Registry Rosasuria Qd administered Note: [facility] bi-directional interface ; Source: Other Registry Rosasuria Qd administered Note: [facility] bi-directional interface ; Source: Other Registry Influenza virus vaccine, injectable, quadrivalent, split virus, preservative free, 3 years or older Fluarix Quad administered Source: Other Provid er Influenza virus vaccine, injectable, quadrivalent, split virus, preservative free, 3 years or older Fluarix, Flulaval or Fluzone Quad administered Note: Invalid docume nted admin date was . ; Source: Other Provider Afluria Qd administered Note: [facility] bi-directional interface ; Source: Other Registry zoster vaccine, live administered Note: [facility] bi-directional interface ; Source: Other Registry Influenza, seasonal, injectable, preservative free administered Note: [facility] bi-directional interface ; Source: Other Registry Influenza, seasonal, injectable administe red Note: [facility] bi- directional interface ; Source: Other Registry tetanus toxoid, reduced diphtheria toxoid, and acellular pertussis vaccine, adsorbed administered Note: [facility] bi-direct ional interface ; Source: Other Registry Novel [id number], all formulations administered Note: [facility] bi-direct ional interface ; Source: Other Registry Influenza, seasonal, injectable, preservative free administered Note: [facility] bi-directional interface ; Source: Other Registry Pneumovax 23 administered Note: [facility] bi-d irectional interface ; Source: Other Registry Engerix-B administered Note: [facility] bi-d irectional interface ; Source: Other Registry Engerix-B administered Note: [facility] bi-d irectional interface ; Source: Other Registry Engerix-B administered Note: [facility] bi-d irectional interface ; Source: Other Registry Payers Payer name Insurance type Covered constitution party ID Authoriza tion(s) [employer] [place] [employer] [id number] Social History Type Description Quantity Date Captured Comments Sex Female Smoking Status No Information Chief Complaint And Reason For Visit No Information Reason For Referral Reason For Referral No Information Plan Of Treatment Date Type Action Status Goal Lifestyle education regardin g diet completed Goal Lifestyle education regardin g diet completed Goal Lifestyle education regardin g diet completed Goal Lifestyle education regardin g diet completed Referral Ordered: Enterography CT WITHOUT And WITH Contrast Appointment date/timeframe: 08/14/2014 ordered Referral Ordered: Abdomen X-ray; Limited (AP view only) (KUB) Appointment date/timeframe: 08/04/2014 ordered Referral Ordered: follow-up visit with NPPA or MD As needed ordered Referral Ordered: EGD Appointment date/timeframe: 07/17/2014 ordered Referral Ordered: Flexible Sigmoidoscopy Appointment date/timeframe: 07/17/2014 ordered Referral Ordered: follow-up visit with NPPA or doctor 1 Month Appointment date/timeframe: 07/25/2014 ordered History Of Present Illness Encounter Date Complaint History Of Teresa nt Illness GI Symptoms or Concerns GI Symptoms or Concerns The vern ent is a 54-year-old woman who presents with new onset of right upper quadrant pain.The patient has followed in our clinic for long time for abdominal pain and diarrhea. She was first evaluated for diarrhea in 2006. At that time, extensive workup was done with stool studies including VIP, TSH, 5-HIAA, urine, and white blood cells and workup was negative. She had some fecal incontinence and in 2012, had a sacral nerve stimulator placed and had done much better from point of rectal incontinence.She was seen again in July 2014 and at that time, she continued to have abdominal pain and intermittent diarrhea and constipation. An EGD was negative, flex sig showed solid stool in the rectum and a gastric emptying study was positive for gastroparesis. A CT enterography was negative and a flat plate of the abdomen was negative. She was tried on MiraLax for her constipation, but felt like the MiraLax gave her diarrhea and she since disconnected it. Colonoscopy at [facility] GI Symptoms or Concerns Patient is a very pleasant 54-year-old woman who is here for followup of abdominal pain and diarrhea.Patient has a long history of diarrhea. She has had a full work up in our office that showed a slightly elevated c-reactive protein, but work up with gastrin TSH, VIP, white blood cell counts, and a 5 HIA as well as colonoscopy and biopsies were all negative at that time. She had a sacral nerve stimulator placed to prevent fecal incontinence.Her most current episode of nausea and vomiting started in June. She was seen at that time in the ER after two weeks of nausea, vomiting and diarrhea, and found to have significant dehydration with hypertension and hypomagnesemia. She was treated with IV magnesium and IV fluids and did well until she was seen in our office.Patient is seen in our office on July 10, 2014 with nausea, vomiting, and diarrhea. At that time, the patient reported full stool tests that were negative. I do not have a copy of those results. We did ad GI Symptoms or Concerns Paola Fields is a pleasant 54-year-old female seen here in followup for nausea and vomiting.The patient was initially evaluated by Dr. Hudson on July 10. At that time, she presented with vomiting and diarrhea, ongoing for about the past two months. She at that time reported vomiting 6 times a day primarily after eating. She does also have dry heaves. Zofran or Compazine did not provide significant relief. She had ongoing symptoms of diarrhea at the same time of this vomiting. The patient actually has a long history of diarrhea and had a sacral nerve stimulator on place in 2012. This did provide significant improvement in her loose stools until July. Today, she actually reports being back to her baseline. Today is only having one bowel movement roughly every one to two days.Patient's workup in July includes a positive gastric emptying study which is indicative of gastroparesis. Proceeding that test, she had an upper endoscopy and a flexible sigmoidoscopy. Her upper endosc GI Symptoms or Concerns The vern ent is a very pleasant 54-year-old woman who presents with vomiting for the past month and a half.The patient reports her symptoms began acutely in what she thought was an episode of a flu. She began with vomiting and then soon after that developed worsening diarrhea. At this time she is vomiting approximately 6 times a day, it mostly occurs after eating, but that also occurs after drinking water and wakes her up from sleep at night. At night she most often vomits fluids and sometimes has dry heaves, she had no improvement in her vomiting with Zofran or Compazine. Reglan seem to make her symptoms better. Her vomiting also seemed worse with greasy foods and foods with heavy content.The patient also has symptoms of diarrhea that began at the same time. She has a long history of diarrhea and had a sacral nerve stimulator placed 2 years ago and had significant improvement in her diarrhea until this episode. Now she is moving her bowels 6 to 10 times a day and occa Functional Status Date Functional Assessmen t No Information Instructions Date Instruction Additional Infor mation Ultrasound Gallbladder Lifestyle education regarding di et Related to Dietary counseling and surveillance Lifestyle education regarding di et Related to Dietary surveillance and counseling Gastroparesis Folder Related to Gastroparesis Lifestyle education regarding di et Related to Dietary surveillance and counseling EGD Related to Nause a With Vomiting Lifestyle education regarding di et Related to Dietary surveillance and counseling Assessments Type Assessment Date No Information Patient Care Teams Name Effective Dates (start - stop) Status Members No Information
--- NOTE | 2023-01-27 08:00 | W.ANESCHARGE ---
Anesthesia Charges Start Date/Time Anesthesia Start Date: 01/27/23 Anesthesia Start Time: 07:27 Stop Date/Time Anesthesia Stop Date: 01/27/23 Anesthesia Stop Time: 08:03
--- NOTE | 2023-01-27 09:03 | W.ANESCHARGE ---
Anesthesia Charges Start Date/Time Anesthesia Start Date: 01/27/23 Anesthesia Start Time: 07:27 Stop Date/Time Anesthesia Stop Date: 01/27/23 Anesthesia Stop Time: 08:03
== END 2023-01-27 06:32 | disposition home or self-care (01) ==
LOC: OP CLINIC 06:32
PROVIDERS: PCP Family Medicine; Visit Provider Surgery
DX: Z86.010 Personal history of colon polyps (principal); K64.4 Residual hemorrhoidal skin tags; K57.30 Diverticulosis of large intestine without perforation or abscess without bleeding
CPT/HCPCS: 45378; 811; J2704

== ENCOUNTER 2023-03-05 07:19 | Outpatient (CLI) | payer MEDICARE, BC, SELFPAY ==
--- OUTSIDE RECORDS SUMMARY | 2023-03-05 07:23 | XMS_ITS | Patient Health Record ---
Author Name Unknown Organization [facility] Address [address] [place], [place] [id number] Care Team Providers Care Red Mud Thickener Operator Name Role Phone Bhavesh Baltazar Primary Care Provider [phone] ALLERGIES Allergen (clinical drug ingredient) Drug/Non Drug [...] (N39.3) Active confirmed SI - Stress incontinence (86824706) Problem Urge incontinence (N39.41) Active confirmed Urge incontinen ce of urine (97264043) Problem Mixed incontinence (N39.46) Active confirmed Mixed incontine nce (965867353) Problem Menopausal and female climacteric states (N95.1) Active confirmed Menopause (243121720) Problem Unspecified menopausal and perimenopausal disorder (N95.9) Active confirmed Menopausal and postmenopausal disorders (491830277) Problem Chronic bladder pain (R39.82) Active confirmed 96909331 Problem Urinary incontinence, unspecified type (R32) Active confirmed 809148444 Problem Dyspareunia in female (N94.10) Active confirmed 98047096 Problem Climacteric (N95.1) Active confirmed Menopause (454916300) Problem Urinary incontinence with continuous leakage (N39.45) Active confirmed 753955440 Problem Post-menopausal atrophic vaginitis (N95.2) Active confirmed Atrophic v aginitis (67101038) Problem Urinary incontinence, nocturnal enuresis (N39.44) Active confirmed 0292303 Problem Complete fecal incontinence (R15.9) Active confirmed [id number] PLAN OF TREATMENT Pending Test Test Name Order Date ESTRADIOL 02/11/2021 FSH 02/11/2021 TESTOSTERONE, TOTAL, LC/MS/MS 02/11/2021 Insurance Providers Payer Name Payer Address Payer Phone Subscriber Number Group Number Insured Name Patient Relationship to Insured Coverage Start Date Coverage End Date BCBS - Medicare Advantage [address] [address] [place], [place] [id number] NATE KEVIN Self - patient is the insured Medicare (Ins. Bill) [address] [place], [place] [id number] NATE KEVIN Self - patient is the insured MEDICAL (GENERAL) HISTORY Medical History History ICD Code Night Terrors (history of childhood abus e) High Cholesterol Bladder infections Arthritis Migraines Depression/Anxiety Diabetes on insulin Asthma Thyroid Problems morbid obesity fibromyalgia/ chronic pain syndrome- [facility] [place] [facility] Disability due to chronic migraines a nd fibromyalgia pain Surgical History Surgery Date(Month/Year) Abdominoplasty 08/2019 Reun Y gastric surgery 05/2019 Left thumb surgery 10/2018 Torn ligaments in foot 2018 Torn ligaments in foot 2017 Heart Moniter 2016 Knee replacement 2015 Left Sholder Surgery 2015 Knee replacment 2014 Interstim for fecal incontinence 2012- [facility] 2012 Back surgery 2010 Back Surgery 2010 Back Surgery 2005 Gallbladder 2002 Hysterectomy RSO 1985 Tonsilectomy 1965
--- NOTE | 2023-03-05 08:29 | W.ANESCHARGE ---
Anesthesia Charges Start Date/Time Anesthesia Start Date: 03/05/23 Anesthesia Start Time: 08:12 Stop Date/Time Anesthesia Stop Date: 03/05/23 Anesthesia Stop Time: 08:26
--- NOTE | 2023-03-05 11:15 | W.ANESCHARGE ---
Anesthesia Charges Start Date/Time Anesthesia Start Date: 03/05/23 Anesthesia Start Time: 08:12 Stop Date/Time Anesthesia Stop Date: 03/05/23 Anesthesia Stop Time: 08:26
== END 2023-03-05 07:20 | disposition home or self-care (01) ==
LOC: OP CLINIC 07:20
PROVIDERS: PCP Family Medicine; Visit Provider Surgery
DX: R58 Hemorrhage, not elsewhere classified (principal); Z98.0 Intestinal bypass and anastomosis status
CPT/HCPCS: 00731; 43239; 88305; J2704; J3490

== ENCOUNTER 2023-08-18 19:17 | Emergency (ER) | payer MEDICARE, BC, SELFPAY ==
[2023-08-18 19:45] VITALS: BP 114/64; PULSE 66; RESP 18; TEMP 36.6; O2SAT 97; BMI 30.7
--- NOTE | 2023-08-18 19:54 | XR_ITS ---
Patient: NATE KEVIN Facility:?[facility] Patient ID:?[id number] Site Patient ID:?[id number]. Site :?[id number] Study:?XRay-Knee Left 2V-08/18/2023 8:09:57 PM Ordering Physician:BJ Final Report: INDICATION: Fall, left knee pain and swelling. TECHNIQUE: Left knee 2 view. COMPARISON: Knee radiographs 01/07/2019. FINDINGS: No acute fracture or dislocation. Left total knee arthroplasty with patellar resurfacing, with additional tibial hardware in place. Hardware appears intact without radiographic evidence of loosening. Small loose body in the anterior joint space. Trace knee joint effusion. Soft tissues are unremarkable. IMPRESSION: 1. No acute findings. 2. Intact left TKA without evidence of hardware failure. Dictated by Nubia Phillip MD @ 08/18/2023 9:01:30 PM Signed by:?Nubia Phillip MD @08/18/2023 9:01:30 PM (Electronic Signature)
--- NOTE | 2023-08-18 22:14 | ED.LOWEXIN ---
HPI - Extremity Injury (Lower) General Time Seen by Provider: 22:14 Date Seen: 08/18/23 Chief Complaint: Extremity Pain/Injury, Lower Stated Complaint: L Foot went numb-fell hurt leg/foot Time Seen by Provider: 08/18/23 21:58 Source: patient, family, RN notes reviewed and old records reviewed Mode of arrival: ambulatory Limitations: no limitations History of Present Illness HPI Narrative: 63-year-old female who comes in today with left knee pain after fall. Patient was sitting in her left foot fell asleep, she tripped and fell on her left knee. Complains of pain. Did not take any medication for this. Has prior knee replacement. No other injuries. Related Data Home Medications Medication Instructions Recorded Confirmed albuterol sulfate 90 mcg/actuation g inhalation 02/24/22 02/26/22 aerosol inhaler alprazolam 0.25 mg tablet 0.25 mg PO 02/24/22 02/26/22 atorvastatin 40 mg tablet 40 mg PO 02/24/22 02/26/22 baclofen 10 mg tablet 10 mg PO 02/24/22 02/26/22 hyoscyamine sulfate 0.125 mg 0.125 mg PO 02/24/22 02/26/22 sublingual tablet lamotrigine 100 mg tablet 100 mg PO 02/24/22 02/26/22 lansoprazole 30 mg capsule,delayed 30 mg PO 02/24/22 02/26/22 release levothyroxine 88 mcg tablet 88 mcg PO 02/24/22 02/26/22 meclizine 25 mg tablet 25 mg PO 02/24/22 02/26/22 mirtazapine 7.5 mg tablet 7.5 mg PO 02/24/22 02/26/22 montelukast 10 mg tablet 10 mg PO 02/24/22 02/26/22 montelukast 10 mg tablet 10 mg PO .Bedtime 02/24/22 02/26/22 ondansetron 4 mg disintegrating 4 mg PO PRN 02/24/22 02/26/22 tablet risperidone 0.25 mg tablet 0.25 mg PO 02/24/22 02/26/22 rizatriptan 10 mg tablet 10 mg PO 02/24/22 02/26/22 spironolactone 25 mg tablet 25 mg PO 02/24/22 02/26/22 sucralfate 1 gram tablet 1 g PO 02/24/22 02/26/22 temazepam 30 mg capsule 30 mg PO 02/24/22 02/26/22 Previous Rx's Medication Instructions Recorded prednisone 20 mg tablet 60 mg (3 x 20 mg) PO DAILY 7 days 07/16/22 #21 tabs peg 3350-electrolytes 236 240 ml PO Q10M #4,000 mL 01/14/23 gram-22.74 gram-6.74 gram-5.86 gram solution (Golytely) amoxicillin 500 mg tablet 2,000 mg (4 x 500 mg) PO ONCE #4 08/17/23 tabs Allergies Allergy/AdvReac Type Severity Reaction Status Date / Time dapagliflozin [From [facility]] Allergy Severe infections Verified 07/16/22 15:12 adhesive Allergy Verified 07/16/22 15:12 aripiprazole Allergy Verified 07/16/22 15:12 aspirin Allergy Verified 07/16/22 15:12 caffeine Allergy Verified 07/16/22 15:12 codeine Allergy Verified 07/16/22 15:12 fluconazole Allergy Verified 07/16/22 15:12 iodine Allergy Verified 07/16/22 15:12 metformin Allergy Verified 07/16/22 15:12 oxcarbazepine Allergy Verified 07/16/22 15:12 pregabalin Allergy Verified 07/16/22 15:12 Quinolones Allergy Verified 07/16/22 15:12 rosuvastatin Allergy Verified 07/16/22 15:12 Sulfa (Sulfonamide Allergy Verified 07/16/22 15:12 Antibiotics) tramadol Allergy Verified 07/16/22 15:12 verapamil Allergy Verified 07/16/22 15:12 Theophyllines Allergy Uncoded 02/26/22 08:49 PFSH PFSH Medical History Asthma Dermatomycosis Diabetes Fibromyalgia Foreign body Gastroesophageal reflux Generalized anxiety disorder History of benign breast biopsy Hyperlipidemia Hypothyroidism Irritable bowel syndrome Major depressive disorder Obstructive sleep apnea Osteopenia Recurrent headache Sacral nerve stimulator present Surgical History H/O arthroplasty (11/18/18) H/O elbow surgery (12/11/89) H/O tubal ligation H/O: hysterectomy History of appendectomy History of arthroscopic knee surgery History of arthroscopy of left shoulder (11/10/13) History of arthroscopy of right shoulder (09/28/90) History of cholecystectomy History of tonsillectomy Status post total left knee replacement (06/11/11) Status post total right knee replacement (05/24/14) Social History (Updated 07/16/22 @ 16:18 by Maria Teresa Blanc MD) Smoking Status: Former smoker What tobacco products do you use: cigarettes Smoking quit date/years: <= 15 years ago Do you use any of these nicotine containing products: None Second hand tobacco smoke exposure: No How often do you have a drink containing alcohol: never AUDIT-C Alcohol total score: 0 Non-prescribed substance use: denies use Exam Narrative: Exam Narrative: General: well nourished , NAD Head: Atraumatic and normocephalic ENT: External ears and external nose are normal Eyes: Conjunctiva clear, pupils are equal reactive, external ocular motions are intact Neck: Full spontaneous range of motion of the neck Lungs: No respiratory distress Musculoskeletal: Swelling of the left knee with no bruising or joint effusion, no bony step-off Neurologic: No gross focal neurologic deficits Skin: No rashes Psych: Mood and affect are appropriate Const: Vital Signs, click to edit/add: Vital Signs - 24 hr 08/18/23 19:45 Temperature 97.9 F Pulse Rate [Right Pulse Oximeter] 66 Respiratory Rate 18 Blood Pressure [Ri ght Upper Arm] 114/64 Pulse Oximetry 97 Oxygen Delivery Me thod Room Air Course Course ED Course: Patient seen examined, prior records are reviewed. Patient presents today with this fall in which she landed on her left knee is complaining of pain. X-ray independently interpreted by me negative for acute fracture dislocation, TKA hardware is in place. Patient is stable for discharge with outpatient treatment. She has a walker at home she can use for the next couple of days, declined pain medication Patient does smoke cigarettes Limited access to affordable Healthcare Vital Signs Vital signs: Initial Vital Signs Temperature 97.9 F 08/18/23 19:45 Temperature Source Temporal Artery Scan 08/18/23 19:45 Pulse Rate 66 08/18/23 19:45 Pulse Rhythm Regular 08/18/23 19:45 Pulse Strength 3+ Normal 08/18/23 19:45 Respiratory Rate 18 08/18/23 19:45 Blood Pressure 114/64 08/18/23 19:45 Blood Pressure Mean 80 08/18/23 19:45 Blood Pressure Position Sitting 08/18/23 19:45 Pulse Oximetry 97 08/18/23 19:45 Oxygen Delivery Method Room Air 08/18/23 19:45 Vital Signs Temperature 97.9 F 08/18/23 19:45 Pulse Rate 66 08/18/23 19:45 Respiratory Rate 18 08/18/23 19:45 Blood Pressure 114/64 08/18/23 19:45 Pulse Oximetry 97 08/18/23 19:45 Oxygen Delivery Method Room Air 08/18/23 19:45 Temperature 97.9 F 08/18/23 19:45 Pulse Rate 66 08/18/23 19:45 Respiratory Rate 18 08/18/23 19:45 Blood Pressure 114/64 08/18/23 19:45 Pulse Oximetry 97 08/18/23 19:45 Oxygen Delivery Method Room Air 08/18/23 19:45 Discharge Plan Discharge Clinical Impression: Contusion of knee, left Patient Disposition: Home w/ Parent or Adult Condition: Stable Instructions: Contusion in Adults (ED) Additional Instructions: Take Tylenol as needed for pain. Ice 15-20 minutes at a time every 2-3 hours while awake for 24 hours, then switch to warm heat if you desire. Use walker to assist with ambulation for the next couple of days. Activity Level: Weight Bearing as Tolerated Discharge Diet: Regular Prescriptions: No Action mirtazapine 7.5 mg tablet 7.5 mg PO ondansetron 4 mg tablet,disintegrating 4 mg PO PRN montelukast 10 mg tablet 10 mg PO montelukast 10 mg tablet 10 mg PO .Bedtime levothyroxine 88 mcg tablet 88 mcg PO Patient Comments: TAKE 1 TABLET BY MOUTH EVERY DAY rizatriptan 10 mg tablet 10 mg PO atorvastatin 40 mg tablet 40 mg PO albuterol sulfate 90 mcg/actuation HFA aerosol inhaler inhalation alprazolam 0.25 mg tablet 0.25 mg PO risperidone 0.25 mg tablet 0.25 mg PO lansoprazole 30 mg capsule,delayed release(DR/EC) 30 mg PO Patient Comments: TAKE 1 CAPSULE (30 MG) BY MOUTH ONCE DAILY BEFORE A MEAL. hyoscyamine sulfate 0.125 mg tablet, sublingual 0.125 mg PO Patient Comments: PLACE 1 TABLET (0.125 MG) UNDER THE TONGUE EVERY 4 HOURS IF NEEDED FOR COLIC FOR UP TO 30 DOSES. spironolactone 25 mg tablet 25 mg PO Patient Comments: TAKE 1 TABLET BY MOUTH TWICE A DAY meclizine 25 mg tablet 25 mg PO Patient Comments: TAKE 1 TABLET (25 MG) BY MOUTH 3 TIMES DAILY IF NEEDED FOR VERTIGO. sucralfate 1 gram tablet 1 g PO lamotrigine 100 mg tablet 100 mg PO temazepam 30 mg capsule 30 mg PO baclofen 10 mg tablet 10 mg PO prednisone 20 mg tablet 60 mg PO DAILY 7 Days Qty: 21 0RF peg 3350-electrolytes [Golytely] 236-22.74-6.74 -5.86 gram recon soln 240 ml PO Q10M Qty: 4000 0RF Rx Instructions: until fecal effluent is clear amoxicillin 500 mg tablet 2,000 mg PO ONCE Qty: 4 3RF Rx Instructions: take 4 tablets or 2000 mg, 1 hour prior to dental work Follow Up/Referrals: Cecilia Hercules MD [Primary Care Provider] - Stand Alone [facility]: [facility] Inst[facility]
--- OUTSIDE RECORDS SUMMARY | 2023-08-18 22:30 | XMS_ITS | Clinical Summary ---
Author Name Unknown Organization [facility] Address [place], [place] [address] Care Team Providers Care Electrical Prospector Name Role Phone Pranay Gamino MD Unavailable [phone] Katherin Mckenna Unavailable Unavailable Marija Harper MD Unavailable [phone] Heavenly Hathaway TABLE COVER FOLDER Unavailable Unavaila Graciela Treviño RD Unavailable Unavailab Markell Castaneda MD Unavailable [phone] Cecilia Hercules MD Primary Care Provider [phone] Allergies Active Allergy Reactions Criticality Noted Date Comments Aripiprazole Chest Pain,Hives 02/01/2010 Other reaction(s): Chest Pain, Other, see comments Chest pain , Adalimumab Nausea And Vomiting 07/08/2013 HUMIRA Adhesive Rash High 09/16/2013 Aspirin Hives,Edema,Anaphyla x is High 11/05/2005 Ergotamine-Caffeine Nausea Only Ciprofloxacin Throat Swelling/Closing,Naus ea And Vomiting,Anaphylaxis High 11/06/2005 Rosuvastatin Hives,Other - Describe In Comment Field,Vomiting 08/23/2010 emesis Fluconazole Other - Describe In Comment Field,Anaphylaxis,Hiv es High 07/08/2013 Other reaction(s): Gastrointestinal tongue swelling Ergotamine GI Upset,Nausea Only 01/25/2014 Exenatide *Unknown 01/26/2015 PN: Bruise, pain Fentanyl Itching Low 12/27/2020 Iodine Other - Describe In Comment Field,Rash,Anaphylaxi s High 04/21/2012 swollen tongue Lurasidone Hives 04/16/2020 Pregabalin Hives,Throat Swelling/Closing,Anap hylaxis High 07/30/2010 Metformin Nausea And Vomiting 04/08/2012 Other reaction(s): Gastrointestinal pancreatitis Nsaids (Non-Steroidal Anti-Inflammatory Drug) Other - Describe In Comment Field 06/02/2019 This patient has a history of a Rachid-en-Y gastric bypass. AVOID NSAIDs and aspirin due to risk of gastric and/or G-J anastomotic ulcers. If Paola must be on short course of NSAIDs or aspirin, use enteric coated if possible and use PPI // [facility] 06/02/2019. Oxcarbazepine Edema 07/09/2016 Quinolones Anaphylaxis High 04/21/2012 Pt. Received Ancef on 08/15/20- no reaction noted. Rosuvastatin Calcium GI Upset 04/21/2012 Sulfa (Sulfonamide Antibiotics) Anaphylaxis,Throat Swelling/Closing High 09/04/2007 Sulfacetamide Sodium Anaphylaxis High 01/25/2014 Sulfasalazine Anaphylaxis High 07/08/2013 Verapamil Other - Describe In Comment Field,Anaphylaxis High 09/16/2013 Ankle swelling Cariprazine Hypertension 02/02/2019 Swell Medications Medication Sig Dispensed Refills Start Date End Date Status levothyroxine (SYNTHROID) 88 mcg tablet Take 88 mcg by mouth once daily. 1 12/07/2017 Active FREESTYLE VINH 14 DAY SENSOR kit USE ONE SENSOR EVERY 14 DAYS 11 09/10/2018 Active inhalational spacing deviceIndications:A sthma, unspecified asthma severity, unspecified whether complicated, unspecified whether persistent For home use. 3 Device 3 10/07/2018 Active vortioxetine (TRINTELLIX) 20 mg tablet Take 40 mg by mouth 2 times daily. Active lamoTRIgine (LAMICTAL) 100 mg tablet Take 200 mg by mouth 2 times daily. Active temazepam (RESTORIL) 30 mg capsule Take 30 mg by mouth at bedtime. Active acarbose (PRECOSE) 25 mg tablet Not taking 05/15/2021 Active baclofen (LIORESAL) 10 mg tablet PLEASE SEE ATTACHED FOR DETAILED DIRECTIONS 01/06/2022 Active risperiDONE (RISPERDAL) 0.25 mg tablet Not taking Active ondansetron (ZOFRAN ODT) 4 mg disintegrating tabletIndications:N ausea and vomiting PLACE TAKE 1 TABLET (4 MG) ON THE TONGUE EVERY 8 HOURS NEEDED FOR NAUSEA AND VOMITING 300 Tablet 3 11/06/2022 Active fludrocortisone (FLORINEF) 0.1 mg tabletIndications:T achycardia,Hypotens ion, unspecified hypotension type Take 1 Tablet (0.1 mg) by mouth once daily. 90 Tablet 2 01/19/2023 Active semaglutide (Ozempic) 2 mg/1.5 mL pen Inject 0.5 mg subcutaneous once weekly. 08/19/2022 Active atorvastatin (LIPITOR) 40 mg tabletIndications:M ixed hyperlipidemia Take 1 Tablet (40 mg) by mouth at bedtime. 90 Tablet 3 01/28/2023 Active metoclopramide HCl (REGLAN) 10 mg tabletIndications:N ausea and vomiting, unspecified vomiting type Take 1 Tablet (10 mg) by mouth three times daily before meals. 270 Tablet 1 01/28/2023 Active rizatriptan (MAXALT) 10 mg tabletIndications:I ntractable migraine without status migrainosus, unspecified migraine type Take 1 Tablet (10 mg) by mouth 2 times daily if needed for Migraine. Give at minimum 2hrs apart. Max Dose: 30mg per 24hrs. 10 Tablet 2 01/28/2023 Active Graduated Compression StockingsIndication s:Right leg swelling For personal use. Length: calf Strength: 16-20 mmHg Circumference in cm: measure patient at pharmacy 1 Packet 05/15/2023 Active montelukast (SINGULAIR) 10 mg tabletIndications:S easonal allergic rhinitis due to pollen,Moderate persistent asthma, unspecified whether complicated TAKE 1 TABLET BY MOUTH EVERY DAY 100 Tablet 3 06/02/2023 Active furosemide (LASIX) 20 mg tabletIndications:W eight gain,Bilateral lower extremity edema Take 1 Tablet (20 mg) by mouth every morning. 60 Tablet 1 06/16/2023 Active lansoprazole (Prevacid) 30 mg capsuleIndications: Abdominal pain, unspecified abdominal location Take 1 Capsule (30 mg) by mouth once daily. 90 Capsule 4 07/08/2023 sucralfate (Carafate) 1 gram tabletIndications:A bdominal pain, unspecified abdominal location Take 1 Tablet (1 g) by mouth four times daily before meals and at bedtime. 120 Tablet 12 07/08/2023 4 Active Problems Patient Care Coordination No te Formatting of this note migh t be different from the original. 2020 RD consult order entered 05/22/20. [facility] - [facility] -- [facility] Initial Consult 09/21/2018 with Heavenly Hathaway SURGEON: Hayden Intake: 263# (4'7; bmi 61.49) Operation: Rachid-en Y gastric bypass 05/23/2019 Problem Noted Date Diagnosed Date Malnutrition, unspecified type 07/24/2022 Anorexia nervosa, restricting type 08/12/2021 Severe episode of recurrent major depressive disorder, without psychotic features 08/12/2021 Ureteral stone with hydronephrosis 12/28/2020 Flank pain 12/28/2020 Nausea 12/28/2020 s/p laparoscopic Rachid-en-Y g astric bypass 05/23/2019 Dr. Blake 05/23/2019 Overview: Dr. Blake Controlled substance agreement signed 03/08/2019 Overview: [facility] Keven Dong, [facility] 03/09/2019 8:53 AM Trochanteric bursitis of both hips 09/30/2018 Neck pain 09/30/2018 Myalgia 11/17/2017 Insomnia 02/15/2017 Nonintractable migraine 01/01/2017 Diabetes mellitus 12/07/2013 Overview: Dx: 08/2010 Other pain disorders related to psychological fa ctors 07/22/2013 Obesity 06/15/2013 Posttraumatic stress disorder 04/16/2012 Tachycardia, unspecified 04/07/2012 Obsessive-compulsive disorders 03/05/2012 intermediate manager (current) use of anticoagulants 2011 GERD (gastroesophageal reflux disease) 1 Unspecified asthma(493.90) 01/07/2011 Carpal tunnel syndrome 11/07/2010 Fibromyalgia 07/19/2010 Osteopenia 12/20/2009 Chondromalacia patella 12/03/2009 Colitis 11/28/2009 Vitamin D deficiency 09/26/2009 Migraine 09/25/2009 Overview: Chronic migraines with visual and sensory aura. Neg MRI 2009. Sees neurology and gets botox CÉSAR 09/10/09 AHI- 54 positional 09/24/2009 Symptomatic menopausal or female climacteric sta bradley 08/22/2009 Unspecified hypothyroidism 07/18/2008 Overview: TSH between 3-7+ since 2003. No symptoms. Except tiredness, insomnia, puffy feet. ONn treatment since 2008. No improvement in symptoms. chronic diarrhea 11/05/2005 Other and unspecified hyperlipidemia 11/05/2005 restless leg syndrome 11/05/2005 Temporomandibular joint disorders, unspecified 0 11/05/2005 Displacement of lumbar inter vertebral disc without myelopathy Overview: s/p epidural injection 2003 Chronic daily headache Spondylosis of cervical cachorro on without myelopathy or radiculopathy MDD (major depressive disord er), recurrent episode, moderate Non-intractable vomiting Anastomotic ulcer Resolved Problems Problem Noted Date Diagnosed Date Resolved Date Convulsions, unspecified convulsion type 08/12/2021 08/12/2021 Controlled substance agreement signed 02/15/2020 02/15/2020 Morbid obesity with BMI of 50.0-59.9, adult 04/12/2019 07/24/2022 Borderline personality disorder 04/21/2013 06/02/2013 Moderate episode of recurren t major depressive disorder 10/07/2012 06/06/2020 Pain medication agreement 07/18/2011 Major depressive disorder, r ecurrent episode, moderate 03/28/2011 10/07/2012 Diarrhea 06/05/2010 06/05/2010 Lump in neck 08/21/2009 08/17/2013 Overview: Feeling of lump in lower ant neck, constant, hurts to eat. Worse laying down. + cough and shortness of breath. Thyroiditis 07/24/2009 08/21/2009 Back pain 03/26/2009 08/21/2009 Headache(784.0) 03/26/2009 08/21/2009 Costochondritis 01/10/2009 08/17/2013 Impaired fasting glucose 11/16/2008 Edema 07/12/2008 08/21/2009 Headache(784.0) 11/05/2005 08/21/2009 Depressive disorder, not elsewhere classified 11/06/19 06 07/13/2006 Anxiety state, unspecified 0 06/06/2020 Unspecified asthma(493.90) 0 09/20/2011 PTSD (post-traumatic stress disorder) 06/06/2020 Encounters Date Type Department Care Team Description 07/29/2023 12:45 PM CDT Office Visit [facility] [address] [place] [address] Lisa Hurtado PA Follow Up (Feet/Leg swelling bilaterally/Echo results ) 07/29/2023 Travel 07/27/2023 2:30 PM CDT Orders Only [address] [address] [facility] [place] [facility] 07/27/2023 Travel 07/13/2023 1:55 PM CLOTHING MAN Office Visit [facility] [address] [place] [address] Cecilia Hercules MD Ear Problem (Feels like ears are plugged, left ear infection 1 month ago) 07/13/2023 Travel 07/08/2023 9:30 AM CLOTHING MAN Office Visit [facility] [address] [address] Everette Hogue MD Follow Up (Ulcers) 07/08/2023 Travel 07/03/2023 2:00 PM CLOTHING MAN Ancillary Procedure [facility] [address] [place] [address] 07/03/2023 1:45 PM CLOTHING MAN Orders Only [address] [address] [facility] [place] [facility] 07/03/2023 Travel 06/16/2023 8:40 AM CLOTHING MAN Office Visit [facility] [address] [place] [address] Lisa Hurtado PA Leg Swelling (Right leg, Left foot is now swelling and painful. ) 06/16/2023 Travel 06/08/2023 8:30 AM CLOTHING MAN Ancillary Procedure [facility] [address] [place] [address] 06/08/2023 Travel 06/02/2023 Orders Only [facility] Scanner 1 scan: (1-Ord) [facility], 06/02/2023 06/01/2023 Refill [facility] [address] [place] [address] Cecilia Hercules MD Refill Request (Montelukast) from Last 3 Months Immunizations Name Administration Dates Next Due AMB Influenza, IIV3 (Age >=3 years)(Flu Clinic Only) 02/17/2013,03/28/2011 COVID-19 vaccine (Pfizer-Bio NTech 30mcg/0.3mL) 12YO+ BIVALENT PF, MDV 01/27/2022 COVID-19 vaccine (Pfizer-Bio NTech 30mcg/0.3mL) 12YO+ RIO-SUCROSE PF, MDV 10/16/2021 COVID-19 vaccine (Pfizer-Bio NTech 30mcg/0.3mL) PF, MDV 08/20/2020,07/30/2020 Hepatitis B (Adult) 12/27/2004,08/23/2004,2004 Influenza A (H1N1), Inactivated 04/19/2009 Influenza A (H1N1), Inactiva dolores (Age >=3 Years) 04/19/2009 Influenza Virus, Unspecified 02/09/2020, 02/08/2015,02/07/2014,2013,02/17/2013,03/28/2011,03/09/2010,1 06/20/2008,04/19/2009 Influenza, IIV3 (Age 6-35 mos) 03/28/2011 Influenza, IIV3 (Age >=3 years) 01/21/2012,03/09,04/19/2009 Influenza, IIV4 01/16/2022,,01/27/2019,2018,03/10/2017,02/27/2016,03/16/2015,0 01/25/2014 Influenza, Inactivated AIIV4 (Age 65+ Years) Preserv Free 01/28/2023 Pneumococcal Conj 20-valent (Prevnar 20) 10/16/2021 Pneumococcal Poly,23-Valent (Pneumovax) 04/10/2008 Td (Age >=7 Years) 02/12/2001 Td, Preservative Free (age > = 7 Years) 01/11/2010 Tdap 09/23/2017,01/11/2010 Tuberculin (PPD) 01/11/2010 Zoster (Shingrix-RZV, recombinant) 05/23/2023, Zoster (Zostavax-ZVL, live) 11/26/2011 Family History Medical History Relation Name Comments Seizures Brother 2 one brother Unknown Father Other Maternal Grandfather melanom a Hypertension Maternal Grandmother Obesity Maternal Grandmother Cancer Mother CLL 68 Other Mother migraines Psychiatric illness Mother mental h ealth issues Asthma Sister 3 Other Sister 3 Psychiatric illness Sister 3 Cancer-breast No Family History Cancer-colon No Family History Cancer-ovarian No Family History Relation Name Status Comments Brother 1 Alive Brother 2 Father Alive Maternal Grandfather (Age 88) hi t by car Maternal Grandmother (Age 92) Mother (Age 68) CLL Paternal Grandfather (Age 89) ol d age Paternal Grandmother (Age 88) ol d age Sister 1 Alive Sister 2 Alive Sister 3 Alive Social History Tobacco Use Types Packs/Day Years Used Date Smoking Tobacco: Former Cigarettes 1 41.3 0 01/1976 - 01/2016 Smokeless Tobacco: Never Tobacco Cessation:Counseling Given: Yes Alcohol Use Standard Drinks/Week Comments No 0 (1 standard drink = 0.6 oz pur e alcohol) last consumed 1982- 11/2019 [facility] PHQ-2 Answer Date Recorded PHQ-2 TOTAL SCORE 0 01/28/2023 Social Connections Answer Date Recorded Frequency of Communication with Friends and Fami ly 0 06/16/2023 Financial Resource Strain Answer Date R ecorded Difficulty of Paying Living Expenses 3 06/16/2023 Difficulty of Paying Living Expenses Not on file 06/16/2023 Food Insecurity Answer Date Recorded Worried About Running Out of Food in the Last Ye ar 1 06/16/2023 Transportation Needs Answer Date Record ed Lack of Transportation (Medical) 1 06/16/2023 Housing Stability Answer Date Recorded Unable to Pay for Housing in the Last Year 1 06/16/2023 Sex and Gender Information Value Date Recorded Sex Assigned at Not on file Gender Identity Not on file Sexual Orientation Not on file Obstetrics History Para Term AB IAB SAB Ectopic Multiple Livin g Live Births 4 4 4 0 0 0 0 0 0 3 3 Date Outcome GA Total Labor Labor/2nd/3rd Weight Sex Delivery Anes PTL Shana A1 A5 Name Cl in Term Vag Feta l Diann se Term Vag Susanne ng Term Vag Susanne ng Term Vag Susanne ng Comments 2nd of SIDS Last Filed Vital Signs Vital Sign Reading Time Taken Comments Blood Pressure 107/64 07/29/2023 12:48 PM CDT Pulse 68 07/29/2023 12:48 PM CDT Temperature 36.7 ??C (98.1 ??F) 05/12/2023 8:39 AM CS T Respiratory Rate 14 07/11/2022 7:41 AM CLOTHING MAN Oxygen Saturation 98% 07/29/2023 12:48 PM CDT Inhaled Oxygen Concentration - - Weight 70.8 kg (156 lb) 07/29/2023 12:48 PM CDT Height 153.6 cm (5' 0.47) 07/13/2023 1:57 PM CS T Body Mass Index 29.99 07/13/2023 1:57 PM CLOTHING MAN Plan of Treatment Upcoming Encounters Date Type Department Care Team (Late st Contact Info) Description 09/17/2023 11:30 AM CDT Office Visit [facility] [address] [place] [address] Liu Segura MD [address] [place] [address] Health Maintenance Due Date Last Done Comments Influenza for age 65+ 01/10/2024 01/28/2023 , 01/16/2022, 02/06/2021, Additional history exists Depression screening for age 12+ 01/29/2024 01/28/2023, 02/06/2021, 02/01/2021, Additional history exists Medicare Wellness for age 65+ 01/29/2024 01/28/2023 Mammogram for age 45-75 02/03/2024 02/03/20 23, 01/30/2022, 02/06/2021, Additional history exists Low Dose CT (for lung CA) ag e 50-80 02/19/2024 02/18/2023, 02/18/2022, 01/30/2021, Additional history exists BMI (ht and wt on same day) for age 18+ 07/12/2024 07/13/2023, 07/08/2023, 01/28/2023, Additional history exists Colonoscopy through age 75 01/27/202601/27, 01/12/2020, 01/12/2020, Additional history exists Tetanus booster 09/24/2027 09/23/2017, 07/2009, 01/11/2010, Additional history exists Lipids for age 45-75 01/29/2028 01/28/2023, 02/06/2021, 08/09/2020, Additional history exists HIV for age 15-65 Completed 09/11/2013, 09/22/2008 Hepatitis C screening for ag e 18-79 Completed 09/11/2013, 09/22/2008 Tdap Completed 09/23/2017, 01/11/2010 Pneumococcal series for age 65+ Completed , 04/10/2008 DEXA/DXA scan for age 65+ Completed 02/02/2023, Zoster (shingles) series for age 50+ Completed 05/23/2023, 03/11/2023, 11/26/2011 COVID-19 vaccine series Completed 07/17/19 24, 03/06/2023, 01/27/2022, Additional history exists Medical Devices Implanted Type Area Crop Duster Helper Device Identifier Shelf Expiration Date Model / Serial / Lot [id number] one Canclls Crushed 30cc [[id number]] Implanted:Qty: 1 on 05/19/2007 at [facility] Explanted:at [facility] (Quantity not on file) Spine Allosource 11/22/2020 [id number]# / [id number] / Screw Polyaxial 6.5x35mm - [id number] Implanted:Qty: 1 on 05/19/2007 at [facility] Spine HOWMEDICA [id number]# / / [id number] Precision 14x26 Fz [[id number]] Implanted:Qty: 1 on 05/19/2007 at [facility] Explanted:at [facility] (Quantity not on file) Spine RT[employer] Inc 12/31/2011 [id number]# / [id number] / [id number] Precision 16x26 Fz [[id number]] Implanted:Qty: 1 on 05/19/2007 at [facility] Explanted:at [facility] (Quantity not on file) Spine [employer] 06/20/2011 [id number]# / [id number] / [id number] one Canclls Crushed 30cc [[id number]] Implanted:Qty: 1 on 05/19/2007 at [facility] Explanted:at [facility] (Quantity not on file) Spine Allosource 02/16/2012 [id number]# / [id number] / Kit Neftali Fernandez - [id number] Implanted:Qty: 1 on 05/19/2007 at [facility] Spine SOFAMOR DANEK [id number]# / / [id number] Screw Polyaxial 6.5x40mm - [id number] Implanted:Qty: 4 on 05/19/2007 at [facility] Spine [employer] [id number]# / / Screw Polyaxial 6.5x45mm - [id number] Implanted:Qty: 1 on 05/19/2007 at [facility] [id number]# / / Riley Amy Rad 60mm 108mm Radius - [id number] Implanted:Qty: 2 on 05/19/2007 at [facility] Spine [employer] [id number]# / / Desire Amy [id number] - [id number] Implanted:Qty: 6 on 05/19/2007 at [facility] Spine [employer] [id number]# / / Lead Tined 28cm Interstim - [id number] Implanted:Qty: 1 on 05/15/2011 at [facility] Explanted:at [facility] (Quantity not on file) Medtronic [id number]# / [id number] / Stimulator Neuro Interstim Ii - [id number] Implanted:Qty: 1 on 05/29/2011 at [facility] Explanted:at [facility] (Quantity not on file) Left: Sacrum Medtronic 09/21/2012 3058# / [id number] / Stimulator Neuro Interstim Ii - [id number] Implanted:Qty: 1 on 08/11/2013 at [facility] Explanted:at [facility] (Quantity not on file) Medtronic Pain Therapy 11/21/2014 3058# / [id number] / Lead Bladder 28cm Interstim Tined 3mm Spacing - [id number] Implanted:Qty: 1 on 04/26/2015 by Tayla Odom MD at [facility] Explanted:at [facility] (Quantity not on file) Medtronic Pain Therapy 11/04/2018 [id number]# / [id number] / Stimulator 7.7mm 14cc Interstim Ii - [id number] Implanted:Qty: 1 on 04/26/2015 by Tayla Odom MD at [facility] Explanted:at [facility] (Quantity not on file) Medtronic Pain Therapy 08/22/2016 3058# / [id number] / Stent Uret [id number] Percuflex Hydroplus - [id number] Implanted:Qty: 1 on 12/28/2020 by Oren Martin MD at [facility] Left: Ureter [facility] 10/11/2023 [id number] / / [id number] Procedures Procedure Name Priority Date/Time Associated Diagnosis Comments BASIC METABOLIC PANEL Routine 07/27/2023 2:30 PM CDT Bilateral lower extremity edema ECHO TTE COMPLETE WO CONTRAST RAO 07/03/2023 2:27 PM CLOTHING MAN Weight gain Bilateral lower extremity edema PERIPHERAL BLD MORPHOLOGY Routine 07/03/2023 1:52 PM CLOTHING MAN Anemia of unknown etiology RED CELL MORPHOLOGY Routine 07/03/2023 1 :52 PM CLOTHING MAN Anemia of unknown etiology PLATELET ESTIMATE Routine 07/03/2023 1:5 2 PM CLOTHING MAN Anemia of unknown etiology RETICULOCYTES Add On 07/03/2023 1:52 PM CLOTHING MAN Anemia of unknown etiology CBC WITH AUTO DIFFERENTIAL Routine 07/03/2023 1:52 PM CLOTHING MAN Anemia of unknown etiology IRON PLUS IRON BINDING CAP Routine 07/03/2023 1:52 PM CLOTHING MAN Anemia of unknown etiology CBC WITH AUTO DIFFERENTIAL Routine 07/03/2023 1:52 PM CLOTHING MAN Anemia of unknown etiology CWS PATH REVIEW HEMATOLOGY Routine 06/16/2023 9:34 AM CLOTHING MAN Fever, unspecified fever cause RED CELL MORPHOLOGY Routine 06/16/2023 9 :34 AM CLOTHING MAN Fever, unspecified fever cause PLATELET ESTIMATE Routine 06/16/2023 9:3 4 AM CLOTHING MAN Fever, unspecified fever cause CBC WITH AUTO DIFFERENTIAL Routine 06/16/2023 9:34 AM CLOTHING MAN Fever, unspecified fever cause CBC WITH AUTO DIFFERENTIAL Routine 06/16/2023 9:34 AM CLOTHING MAN Fever, unspecified fever cause COMP METABOLIC PANEL Routine 06/16/2023 9:34 AM CLOTHING MAN Weight gain Bilateral lower extremity edema PRO-BNP Routine 06/16/2023 9:34 AM CLOTHING MAN Weight gain Bilateral lower extremity edema Dyspnea, unspecified type US VENOUS INSUFFICIENCY LOWER EXTREMITY RIGHT Routine 06/08/2023 9:08 AM CLOTHING MAN Right leg swelling SCAN-EYE EXAM 06/02/2023 12:[address] CHEST SCREENING LOW DOSE WO CONTRAST Routine 02/18/2023 9:25 AM CDT Encounter for screening for lung cancer Former smoker XR MAMMO OUSMANE BILAT SCREEN Routine 02/02/2023 9:29 AM CDT Visit for screening mammogram XR DXA BONE DENSITY 2 SITES AXIAL Routine 02/02/2023 9:18 AM CDT Menopause LIPID PANEL W REFLEX MEASURED LDL Routine 01/28/2023 2:12 PM CDT Mixed hyperlipidemia SCAN-COLONOSCOPY 01/27/2023 12:0 0 AM CDT EXPOSURE (BBF) RAPID HIV STAT 09/11/2013 4:55 AM CDT EXPOSURE (BBF) ANTI HCV STAT 09/11/2013 4:55 AM CDT from Last 3 Months or Most Recently Relevant to Health Maintenance Results * (ABNORMAL) BASIC METABOLIC PANEL (07/27/2023 2:30 PM CDT) SODIUM 141 136 - 145 mmol/L 07/27/2023 10:04 PM CDT [facility] POTASSIUM 4.1 3.5 - 5.1 mmol/L 07/27/2023 10:04 PM CDT [facility] CHLORIDE 103 98 - 107 mmol/L 07/27/2023 10:04 PM CDT [facility] CO2,TOTAL 30(H) 22 - 29 mmol/L 07/27/2023 10:04 PM CDT [facility] ANION GAP 8 5 - 18 07/27/2023 10:04 PM CDT [facility] GLUCOSE 104(H) 70 - 99 mg/dL 07/27/2023 10:04 PM CDT [facility] CALCIUM 9.2 8.8 - 10.2 mg/dL 07/27/2023 10:04 PM CDT [facility] BUN 8 8 - 23 mg/dL 07/27/2023 10:04 PM CDT [facility] CREATININE 0.90 0.50 - 0.90 mg/dL 07/27/2023 10:04 PM CDT [facility] BUN/CREAT RATIO 9(L) 10 - 20 10:04 PM CDT [facility] eGFR 71(L) >90 mL/min/1.7 3m2 07/27/2023 10:04 PM CDT [facility] Comment:As of 2021, eG FR is calculated by the CKD-EPI creatinine equation without race adjustment. ??eGFR can be influenced by muscle mass, exercise, and diet. ??The reported eGFR is an estimation only and is only applicable if the renal function is stable. Blood BLOOD SPECIMEN / Unknown Venipuncture / Unknown 07/27/2023 2:30 PM CDT 07/27/2023 2:30 PM CDT Lisa JUAREZ CHEMISTRY [facility] [address] [place] [address], * ECHO TTE COMPLETE WO CONTRAST (07/03/2023 2:27 PM CLOTHING MAN) AORTIC VALVE MEAN PG 5 mmHg EJECTION FRACTION 55 % PEAK TR VELOCITY 2.2 m/s LVEDD 5.0 cm EJECTION FRACTION 55 - 60% Anatomical Region Laterality Modality Ultrasound 07/03/2023 2:02 PM CLOTHING MAN Narrative 07/03/2023 2:53 PM CLOTHING MAN ECHOCARDIOGRAM PAOLA KEVIN ? Accession#: ?? [id number] : ?1960 63 years Study Date: ?? 07/03/2023 2:02:04 PM Gender: F ?BP: ? 111/57 mmHg Height: 152.00 cm ?BSA: ?1.72 m? ? ? Weight: 75.00 kg ? Tech: ? BMF ? Referring MD: LISA HURTADO Site: ? [facility] Reading Location: Mobile-OP Patient Location: Outpatient. Procedure: 2D, Color Doppler and Spectral Doppler. Indication for study: Peripheral Edema Cardiac Rhythm: Regular.Study quality: Fair. Final Impressions: 1. Normal LV size, normal wall thickness, normal global systolic function with an estimated EF of 55 - 60%. 2. Right ventricular cavity size is normal, global systolic RV function is normal. 3. Mildly enlarged left atrium. 4. The inferior vena cava is normal sized, respiratory size variation greater than 50%. Chamber Sizes and Function Normal left ventricular size, normal wall thickness, normal global systolic function with an estimated EF of 55 - 60%. Left atrial size is mildly enlarged. Right ventricular cavity size is normal, global systolic RV function is normal. RV wall thickness is normal. The right atrium is normal. Right atrial volume index is 15 ml/m? ? ?. Right atrial area is 11 cm? ? ?. The pulmonary artery is of normal size and origin. The sinus of Valsalva is normal sized. The ascending aorta is normal sized. Valves, RV Pressures and Diastolic Function The aortic valve is trileaflet, no stenosis and no regurgitation. The mitral valve is normal in structure, trace mitral regurgitation. Indeterminate pattern of LV diastolic filling. The tricuspid valve is normal in structure. Tricuspid regurgitation is trace regurgitation. The tricuspid regurgitant velocity is 2.2 m/s, the estimated right ventricular systolic pressure is 19 mmHg plus right atrial pressure. The pulmonic valve is normal. Trace pulmonary regurgitation. Masses, Effusion, Shunts There is no pericardial effusion. The inferior vena cava is normal sized, respiratory size variation greater than 50%. Interatrial septum is not well visualized. MEASUREMENTS AND CALCULATIONS 2-D Measurements and LV Function: LVID (d) 5.0 cm LV FS% (2D) ?? 39 % LVID (s) 3.1 cm LVOT diameter 2.1 cm IVS (d) ??0.7 cm HR ?72 bpm LVPW (d) 0.8 cm LA Vol index ??31 ml/m2 Ao Sinus 3.0 cm RA Vol index ??15 ml/m2 Asc Ao ?? 3.1 cm RA area ? 11 cm? ? ? LA ? 4.0 cm RV Max 4C (d) 3.7 cm Diastology: Mitral ?Tissue Doppler E Peak 0.9 m/s ??e', Septum ? 0.07 m/s A Peak 0.8 m/s ??e', Lateral ?0.10 m/s E/A ?1.2 ?E/e' Average ?? 10.79 DT ? 175 msec Aortic Valve: Vmax ? 1.4 m/s ??MARIUSZ (V) ?? 2.71 cm? ? ? VTI ?0.31 m ?? MARIUSZ (I) ?? 2.56 cm? ? ? LVOT V max 1.1 m/s ??Max PG ?8 mmHg LVOT VTI ?? 0.23 m ?? Mean PG ?? 5 mmHg SV ? 80 ml ?Dim Index 0.74 SV index ?? 47 ml/m? ? ? CO ?5.8 l/min ?CI ?3.4 l/min/m? ? ? Mitral Valve: MVA ?4.3 cm? ? ? MV P 1/2 51 msec Tricuspid Valve and estimated PA pressures: TR Vmax 2.2 m/s TAPSE 2.0 cm TR maxG 19 mmHg . This study was interpreted by an [facility] accredited facility. ??Final ?? Procedure Note Mateo Phillips MD - 07/03/2023 ECHOCARDIOGRAM PAOLA KEVIN : 1960 63 years Study Date: 07/03/2023 2:02:04 PM Gender: F BP: 111/57 mmHg Height: 152.00 cm BSA: 1.72 m? ? ? Weight: 75.00 kg Tech: BMF Referring MD: LISA HURTADO Site: [facility] Reading Location: Mobile-OP Patient Location: Outpatient. Procedure: 2D, Color Doppler and Spectral Doppler. Indication for study: Peripheral Edema Cardiac Rhythm: Regular.Study quality: Fair. Final Impressions: 1. Normal LV size, normal wall thickness, normal global systolic functionwith an estimated EF of 55 - 60%. 2. Right ventricular cavity size is normal, global systolic RV functionis normal. 3. Mildly enlarged left atrium. 4. The inferior vena cava is normal sized, respiratory size variationgreater than 50%. Chamber Sizes and Function Normal left ventricular size, normal wall thickness, normal globalsystolic function with an estimated EF of 55 - 60%. Left atrial size ismildly enlarged. Right ventricular cavity size is normal, global systolicRV function is normal. RV wall thickness is normal. The right atrium isnormal. Right atrial volume index is 15 ml/m? ? ?. Right atrial area is 11cm? ? ?. The pulmonary artery is of normal size and origin. The sinus ofValsalva is normal sized. The ascending aorta is normal sized. Valves, RV Pressures and Diastolic Function The aortic valve is trileaflet, no stenosis and no regurgitation. Themitral valve is normal in structure, trace mitral regurgitation.Indeterminate pattern of LV diastolic filling. The tricuspid valve isnormal in structure. Tricuspid regurgitation is trace regurgitation. Thetricuspid regurgitant velocity is 2.2 m/s, the estimated right ventricularsystolic pressure is 19 mmHg plus right atrial pressure. The pulmonicvalve is normal. Trace pulmonary regurgitation. Masses, Effusion, Shunts There is no pericardial effusion. The inferior vena cava is normal sized,respiratory size variation greater than 50%. Interatrial septum is notwell visualized. MEASUREMENTS AND CALCULATIONS 2-D Measurements and LV Function: LVID (d) 5.0 cm LV FS% (2D) 39 % LVID (s) 3.1 cm LVOT diameter 2.1 cm IVS (d) 0.7 cm HR 72 bpm LVPW (d) 0.8 cm LA Vol index 31 ml/m2 Ao Sinus 3.0 cm RA Vol index 15 ml/m2 Asc Ao 3.1 cm RA area 11 cm? ? ? LA 4.0 cm RV Max 4C (d) 3.7 cm Diastology: Mitral Tissue Doppler E Peak 0.9 m/s e', Septum 0.07 m/s A Peak 0.8 m/s e', Lateral 0.10 m/s E/A 1.2 E/e' Average 10.79 DT 175 msec Aortic Valve: Vmax 1.4 m/s MARIUSZ (V) 2.71 cm? ? ? VTI 0.31 m MARIUSZ (I) 2.56 cm? ? ? LVOT V max 1.1 m/s Max PG 8 mmHg LVOT VTI 0.23 m Mean PG 5 mmHg SV 80 ml Dim Index 0.74 SV index 47 ml/m? ? ? CO 5.8 l/min CI 3.4 l/min/m? ? ? Mitral Valve: MVA 4.3 cm? ? ? MV P 1/2 51 msec Tricuspid Valve and estimated PA pressures: TR Vmax 2.2 m/s TAPSE 2.0 cm TR maxG 19 mmHg . This study was interpreted by an [employer] accredited facility. Final Lisa JUAREZ ECHO ORD * (ABNORMAL) CBC WITH AUTO DIFFERENTIAL (07/03/2023 1:52 PM [facility]) Only the most recent of2 resultswithin the time period is included. WHITE BLOOD COUNT 8.2 4.5 - 11.0 thou/cu mm 07/03/2023 3:12 PM [facility] RED BLOOD COUNT 4.53 4.00 - 5.20 mil/cu mm 07/03/2023 3:12 PM [facility] HEMOGLOBIN 8.7(L) 12.0 - 16.0 g/dL 07/03/2023 3:12 PM [facility] HEMATOCRIT 28.9(L) 33.0 - 51.0 % 07/03/2023 3:12 PM [facility] MCV 64(L) 80 - 100 fL 07/03/2023 3:12 PM [facility] MCH 19.2(L) 26.0 - 34.0 pg 07/03/2023 3:12 PM [facility] MCHC 30.1(L) 32.0 - 36.0 g/dL 07/03/2023 3:12 PM [facility] RDW 22.0(H) 11.5 - 15.5 % 07/03/2023 3:12 PM [facility] PLATELET COUNT 302 140 - 440 thou/cu mm 07/03/2023 3:12 PM [facility] MPV 10.3 6.5 - 11.0 fL 07/03/2023 3:12 PM [facility] % NEUT 70.6 % 07/03/2023 3:12 PM [facility] % LYMPH 20.4 % 07/03/2023 3:12 PM [facility] % MONO 8.1 % 07/03/2023 3:12 PM [facility] % EOS 0.7 % 07/03/2023 3:12 PM [facility] % BASO 0.2 % 07/03/2023 3:12 PM [facility] ABSOLUTE NEUTROPHILS 5.8 1.7 - 7.0 thou/cu mm 07/03/2023 3:12 PM [facility] ABSOLUTE LYMPHOCYTES 1.7 0.9 - 2.9 thou/cu mm 07/03/2023 3:12 PM [facility] ABSOLUTE MONOCYTES 0.7 <0.9 thou/cu mm 07/03/2023 3:12 PM [facility] ABSOLUTE EOSINOPHILS 0.1 <0.5 thou/cu mm 07/03/2023 3:12 PM [facility] ABSOLUTE BASOPHILS 0.0 <0.3 thou/cu mm 07/03/2023 3:12 PM [facility] Blood BLOOD SPECIMEN / Unknown Venipuncture / Unknown 07/03/2023 1:52 PM [facility] 07/03/2023 1:54 PM [facility] Lisa JUAREZ HEMATOLOGY [facility] [address] [place] [address], * (ABNORMAL) RED CELL MORPHOLOGY (07/03/2023 1:52 PM [facility]) Only the most recent of2 resultswithin the time period is included. [facility] ELLIPTOCYTES Few 07/03/2023 3:12 PM [facility] TARGET CELLS Few 07/03/2023 3:12 PM [facility] RBC COMMENT Present(A ) RBC morphology appears normal, RBC morphology within normal limits for newborns. 07/03/2023 3:12 PM [facility] Blood BLOOD SPECIMEN / Unknown Venipuncture / Unknown 07/03/2023 1:52 PM [facility] 07/03/2023 1:54 PM [facility] Lisa JUAREZ HEMATOLOGY Performing Organization Address [facility] de Phone Number [facility] [address] [place] [address], * PLATELET ESTIMATE (07/03/2023 1:52 PM [facility]) Only the most recent of2 resultswithin the time period is included. [facility] PLATELET ESTIMATE Adequate Adequate, No estimate 07/03/2023 3:12 PM [facility] Blood BLOOD SPECIMEN / Unknown Venipuncture / Unknown 07/03/2023 1:52 PM [facility] 07/03/2023 1:54 PM [facility] Lisa JUAREZ HEMATOLOGY Performing Organization Address City/[facility] Co de Phone Number [facility] [address] [place] [address], [place] [phone] * PERIPHERAL BLD MORPHOLOGY (07/03/2023 1:52 PM [facility]) Pathologist [facility] Case Report Special Hematology Report ? Case: [id number] ? Authorizing Provider: ??Lisa Hurtado PA ?? Collected: ? 07/03/2023 1352 ? Ordering Location: ? [facility] ?? Received: ?07/03/2023 1354 ? Clinic ? Pathologist: ? Angela Sen MD ? Specimen: ?Blood ? 07/07/2023 8:19 AM [facility] LABORAT[facility]-C ENTRAL LABORATORY Final Diagnosis PERIPHERAL BLOOD: 1. Moderate microcytic, hypochromic anemia, consistent with iron deficiency anemia 2. See comment 07/07/2023 8:19 AM [facility]-C ENTRAL LABORATORY Comment The current CBC indices, morphologic findings, and iron studies performed 07/03/2023 are consistent with iron deficiency anemia. ??There is no evidence of hemolysis, atypia or dysplasia. The most common cause for iron deficiency is occult anatomic blood loss. Other etiologies include deficient nutritional intake, and malabsorption issues (Helicobactor pylori, gastric bypass, Crohn's disease, celiac sprue, excessive use of antacids containing calcium carbonate). ??Clinical correlation is recommended. This case was also reviewed by Nasima Philippe MT, MS ([facility]). 07/07/2023 8:19 AM [facility] LABORATORY-C ENTRAL LABORATORY Clinical Information The patient is a 63-year-old female. Pertinent clinical information: Decreasing hemoglobin and MCV, history of rachid-en-y gastric bypass. EGD and colonoscopy normal in 01/2023 and 02/2023. Patient is also having new onset bilateral lower extremity edema without known cause. Evaluate for iron deficiency secondary to gastric bypass vs other. His MCV is typically in the 90s. As of 02/13/23 15:01 FERRITIN: ?8.6 (L) IRON: ?16 (L) IRON BINDING CAPACITY ?: 399 IRON,% SATURATION ?: 4 (L) UIBC (UNSATURATED) ? : 383 (H) 07/03/23 13:52 IRON: ?26 (L) IRON BINDING CAPACITY ?: 454 (H) IRON,% SATURATION ?: 6 (L) UIBC (UNSATURATED) ? : 428 (H) 07/07/2023 8:19 AM [facility] LABORATORY-C ENTRAL LABORATORY CBC and Differential HEMATOLOGY PARAMETERS Tested at: ??[facility] ? RESULTS ??EXPECTED VALUES WBC: ? 8.2 ?4.5-87p4897/cu mm ? RBC: ? 4.53 ? 4.00-5.20 mil/cumm HGB: ? 8.7 ?12-16 gm/dl ? DECREASED HCT: ? 28.9 ? 33-51% ?DECREASED MCV: ? 64.0 ? 80-100 fl ? MICROCYTIC MCH: ? 19.2 ? 26-34 pg ?DECREASED MCHC: ?30.1 ? 32-36 gm/dl ? HYPOCHROMIC RDW: ? 22.0 ? 11.5-15.5% ?ELEVATED PLT: ? 302 ?140-139z2354/u L ? MPV: ? 10.3 ? 6.5-11 fl ? Retic: ?? 1.4 ?0.5-1.5% ? Differential ?Absolute (%) ?Expected (%) ?(x10*9/L) ? (x10*9/L) Neutrophils: ?5.8 (70.7) ?1.7-7.0 (42-72%) ? Lymphocytes: ?1.7 (20.7) ?0.9-2.9 (20-44%) ?? Monocytes: ?0.7 (8.5) ?<0.9 (0-11%) ? Eosinophils: ?0.1 (1.2) ?<0.5 (0-2%) ? 07/07/2023 8:19 AM [facility] LABORATORY-C ENTRKY LABORATORY Microscopic Description The final diagnosis is based on microscopic examination of an appropriately stained blood smear. 07/07/2023 8:19 AM [facility] LABORATORY-C ENTRAL LABORATORY Additional Information Interpreted at [facility], Central Laboratory - [address] [facility] [address], [place] [address] 07/07/2023 8:19 AM [facility] LABORATORY-C ENTRAL LABORATORY Blood BLOOD SPECIMEN / Unknown Venipuncture / Unknown 07/03/2023 1:52 PM [facility] 07/03/2023 1:54 PM [facility] Comment:CURRENT MEDICATIONSC urrent Outpatient Medications: ? ? acarbose (PRECOSE) 25 mg tablet, Not taking, Disp: , Rfl: ? ? albuterol HFA (Ventolin HFA) 90 mcg/actuation inhaler, Inhale 2 Puffs by mouth every 4 hours if needed for Shortness of Breath 1st choice., Disp: 1 Each, Rfl: 0? ? ALPRAZolam (XANAX) 0.25 mg tablet, Not taking, Disp: , Rfl: ? ? atorvastatin (LIPITOR) 40 mg tablet, Take 1 Tablet (40 mg) by mouth at bedtime., Disp: 90 Tablet, Rfl: 3? ? baclofen (LIORESAL) 10 mg tablet, PLEASE SEE ATTACHED FOR DETAILED DIRECTIONS, Disp: , Rfl: ? ? fludrocortisone (FLORINEF) 0.1 mg tablet, Take 1 Tablet (0.1 mg) by mouth once daily., Disp: 90 Tablet, Rfl: 2? ? [employer] VINH 14 DAY SENSOR kit, USE ONE SENSOR EVERY 14 DAYS, Disp: , Rfl: 11? ? furosemide (LASIX) 20 mg tablet, Take 1 Tablet (20 mg) by mouth every morning., Disp: 60 Tablet, Rfl: 1? ? Graduated Compression Stockings, For personal use. Length: calf Strength: 16-20 mmHg Circumference in cm: measure patient at pharmacy, Disp: 1 Packet, Rfl: 0? ? hyoscyamine sublingual (LEVSIN SL) 0.125 mg subl, Place 1 Tablet (0.125 mg) under the tongue every 4 hours if needed for Colic for up to 30 doses., Disp: 30 Tablet, Rfl: 3? ? inhalational spacing device, For home use., Disp: 3 Device, Rfl: 3? ? lamoTRIgine (LAMICTAL) 100 mg tablet, Take 200 mg by mouth 2 times daily., Disp: , Rfl: ? ? lansoprazole (PREVACID) 30 mg capsule, TAKE 1 CAPSULE BY MOUTH ONCE DAILY, Disp: 90 Capsule, Rfl: 0? ? levothyroxine (SYNTHROID) 88 mcg tablet, Take 88 mcg by mouth once daily., Disp: , Rfl: 1? ? metoclopramide HCl (REGLAN) 10 mg tablet, Take 1 Tablet (10 mg) by mouth three times daily before meals., Disp: 270 Tablet, Rfl: 1? ? montelukast (SINGULAIR) 10 mg tablet, TAKE 1 TABLET BY MOUTH EVERY DAY, Disp: 100 Tablet, Rfl: 3? ? omeprazole (PRILOSEC) 20 mg Delayed-Release capsule, omeprazole 20 mg capsule,delayed release 1 CAPSULE 2X DAILY BEFORE MEALS. MAY OPEN SPRINKLE ON JELLO (TAKE X1 MNTH POSTOP TO PROTECT STOMACH), Disp: , Rfl: ? ? ondansetron (ZOFRAN ODT) 4 mg disintegrating tablet, PLACE TAKE 1 TABLET (4 MG) ON THE TONGUE EVERY 8 HOURS NEEDED FOR NAUSEA AND VOMITING, Disp: 300 Tablet, Rfl: 3? ? predniSONE (DELTASONE) 20 mg tablet, As directed 3 Tablets once daily. Not taking, Disp: , Rfl: ? ? risperiDONE (RISPERDAL) 0.25 mg tablet, Not taking, Disp: , Rfl: ? ? rizatriptan (MAXALT) 10 mg tablet, Take 1 Tablet (10 mg) by mouth 2 times daily if needed for Migraine. Give at minimum 2hrs apart. Max Dose: 30mg per 24hrs., Disp: 10 Tablet, Rfl: 2? ? semaglutide (Ozempic) 2 mg/1.5 mL pen, Inject 0.5 mg subcutaneous once weekly., Disp: , Rfl: ? ? temazepam (RESTORIL) 30 mg capsule, Take 30 mg by mouth at bedtime., Disp: , Rfl: ? ? vortioxetine (TRINTELLIX) 20 mg tablet, Take 40 mg by mouth 2 times daily. , Disp: , Rfl: Lisa JUAREZ HEMATOLOGY [facility] LABORATORY-CENTRAL LABORATORY [address] [place] [address], [place] * (ABNORMAL) IRON PLUS IRON BINDING CAP (07/03/2023 1:52 PM [facility]) IRON 26(L) 37 - 145 ug/dL 07/03/2023 9:01 PM [facility] TRA LABORATORY UIBC (UNSATURATED) 428(H) 112 - 347 ug/dL 07/03/2023 9:01 PM [facility] TRA LABORATORY IRON BINDING CAPACITY 454(H) 250 - 400 ug/dL 07/03/2023 9:01 PM [facility] LABOR[facility] IRON,% SATURATION 6(L) 14 - 50 % 07/03/2023 9:01 PM [facility] LABOR[facility] Blood BLOOD SPECIMEN / Unknown Venipuncture / Unknown 07/03/2023 1:52 PM [facility] 07/03/2023 1:54 PM [facility] Lisa JUAREZ CHEMISTRY [facility] LABORATORY [address] [place] [address], [place] * RETICULOCYTES (07/03/2023 1:52 PM [facility]) [facility] RETIC% 1.4 0.5 - 1.5 % 07/03/2023 9:08 PM [facility] RETIC (ABSOLUTE) 0.07 0.03 - 0.08 mil/cu mm 07/03/2023 9:08 PM [facility] Blood BLOOD SPECIMEN / Unknown Venipuncture / Unknown 07/03/2023 1:52 PM [facility] 07/03/2023 2:05 PM [facility] Lisa JUAREZ HEMATOLOGY [facility] [address] [place] [address], * CWS PATH REVIEW HEMATOLOGY (06/16/2023 9:34 AM [facility]) Pathologist [facility] PATH COMMENT 06/18/2023 1:46 PM [facility] Comment: Reviewed by KM on 06/18/2023 Blood BLOOD SPECIMEN / Unknown Venipuncture / Unknown 06/16/2023 9:34 AM [facility] 06/16/2023 9:35 AM [facility] Lisa JUAREZ [facility] [address] [place] [address], * (ABNORMAL) PRO-BNP (06/16/2023 9:34 AM [facility]) PRO-BNP 135(H) <125 pg/mL 06/16/2023 6:54 PM [facility] Blood BLOOD SPECIMEN / Unknown Venipuncture / Unknown 06/16/2023 9:34 AM [facility] 06/16/2023 9:35 AM [facility] Narrative [facility] - 06/16/2023 6:54 PM [facility] The following cut-points have been suggested for the use of proBNP for the diagnostic evaluation of heart failure (HF) in patient with acute dyspnea. Patients with eGFR >= 60 Diagnosis (rule in CHF) ? <50 Years Old ?450 pg/mL 50 - 75 Years Old ?900 pg/mL >75 Years Old ? 1800 pg/mL Exclusion (rule out CHF) Age Independent ?300 pg/mL A cutoff of 1200 pg/mL for patients with an eGFR <60 yields a diagnostic sensitivity of 89% and specificity of 72% for acute congestive heart failure. ? Lisa JUAREZ SEND OUTS [facility] LABORAT[facility] [address] [place] [address], * (ABNORMAL) COMP METABOLIC PANEL (06/16/2023 9:34 AM [facility]) SODIUM 141 136 - 145 mmol/L 06/16/2023 6:50 PM [facility] TRAL LABORATORY POTASSIUM 5.1 3.5 - 5.1 mmol/L 06/16/2023 6:50 PM [facility] TRAL LABORATORY CHLORIDE 105 98 - 107 mmol/L 06/16/2023 6:50 PM [facility] TRAL LABORATORY CO2,TOTAL 28 22 - 29 mmol/L 06/16/2023 6:50 PM [facility] TRAL LABORATORY ANION GAP 8 5 - 18 06/16/2023 6:50 PM [facility] TRAL LABORATORY GLUCOSE 136(H) 70 - 99 mg/dL 06/16/2023 6:50 PM [facility] TRAL LABORATORY CALCIUM 9.2 8.8 - 10.2 mg/dL 06/16/2023 6:50 PM [facility] TRAL LABORATORY BUN 10 8 - 23 mg/dL 06/16/2023 6:50 PM [facility] LAB[facility] CREATININE 0.83 0.50 - 0.90 mg/dL 06/16/2023 6:50 PM [facility] TRAL LABORATORY BUN/CREAT RATIO 12 10 - 20 6:50 PM [facility] TRAL LABORATORY eGFR 78(L) >90 mL/min/1.7 3m2 06/16/2023 6:50 PM [facility] TRAL LABORATORY Comment:As of 2021, eG FR is calculated by the CKD-EPI creatinine equation without race adjustment. ??eGFR can be influenced by muscle mass, exercise, and diet. ??The reported eGFR is an estimation only and is only applicable if the renal function is stable. ALBUMIN 3.7(L) 4.0 - 4.9 g/dL 06/16/2023 6:50 PM [facility] TRAL LABORATORY PROTEIN,TOTAL 5.3(L) 6.0 - 8.0 g/dL 06/16/2023 6:50 PM [facility] TRAL LABORATORY BILIRUBIN,TOTAL 0.2 0.0 - 1.2 mg/dL 06/16/2023 6:50 PM [facility] TRAL LABORATORY ALK PHOSPHATASE 114(H) 35 - 104 IU/L 06/16/2023 6:50 PM [facility] TRAL LABORATORY ALT (SGPT) 22 10 - 35 IU/L 06/16/2023 6:50 PM [facility] TRAL LABORATORY AST (SGOT) 24 10 - 35 IU/L 06/16/2023 6:50 PM [facility] TRA LABORATORY Blood BLOOD SPECIMEN / Unknown Venipuncture / Unknown 06/16/2023 9:34 AM [facility] 06/16/2023 9:35 AM [facility] Lisa Hurtado PA CHEMISTRY Performing Organization Address City/State/[facility] Co de Phone Number [facility] [address] [place] [address], * US VENOUS INSUFFICIENCY LOWER EXTREMITY RIGHT (06/08/2023 9:08 AM [facility]) Anatomical Region Laterality Modality LEGS Ultrasound 06/08/2023 8:29 AM [facility] Narrative 06/08/2023 2:29 PM [facility] VASCULAR ULTRASOUND REPORT PAOLA KEVIN Accession#: ?? [id number] : ?[id number] ??Study Date: ?? 06/08/2023 8:29:27 AM Age: ?63 years ?? Tech: ? BSG Gender: F ?Referring MD: LISA HURTADO Site: [facility] Study performed: ?Duplex US venous insufficiency, (right). Indication for study: LE pain/edema Study Quality: ?Good TECHNIQUE: Lower/upper extremity veins were examined with duplex ultrasound, color-flow and spectral Doppler per exam protocol. Vein compressibility by transducer pressure was used to evaluate presence/absence of DVT/SVT. Venous flow and competence was evaluated by flow augmentation maneuvers per exam protocol. Insufficiency studies were performed with the patient in upright position, with vein diameters measured in mm, and reflux. IMPRESSION: 1. No evidence of deep vein thrombosis in the right lower extremity. 2. Deep vein insufficiency in the right femoral vein. 3. The right greater saphenous vein and small saphenous are patent and compressible with no evidence for significant venous insufficiency. COMPARISON: Compared to prior study 05-15-2023, previous study is negative DVT in RT LE. FINDINGS: In the right LE, significant edema is visualized from the proximal/mid calf to the ankle. Right Lower Extremity: No evidence of DVT. MEASUREMENTS: + +--------+----+--------+------+ RIGHT ? Compress SVT Diameter Reflux ?(mm) ?? (secs) + +--------+----+--------+------+ SFJ ? yes ? None ??5.8 ?? 0.0 ?? + +--------+----+--------+------+ GSV THIGH PRX yes ? None ??3.6 ?? 0.0 ?? + +--------+----+--------+------+ GSV THIGH MID yes ? None ??3.7 ?? 0.0 ?? + +--------+----+--------+------+ GSV THIGH DST yes ? None ??3.7 ?? 0.0 ?? + +--------+----+--------+------+ GSV KNEE ? yes ? None ??3.2 ?? 0.0 ?? + +--------+----+--------+------+ GSV CALF UPPER yes ? None ??3.2 ?? 0.0 ?? + +--------+----+--------+------+ GSV CALF MID ?? yes ? None ??2.8 ?? 0.0 ?? + +--------+----+--------+------+ GSV CALF LOW ?? yes ? None ??2.4 ?? 0.0 ?? + +--------+----+--------+------+ SSV KNEE/SPJ ?? yes ? None ??4.7 ?? 0.0 ?? + +--------+----+--------+------+ SSV CALF PRX ?? yes ? None ??4.5 ?? 0.0 ?? + +--------+----+--------+------+ SSV CALF MID ?? yes ? None ??4.9 ?? 0.0 ?? + +--------+----+--------+------+ SSV CALF DST ?? yes ? None ??3.6 ?? 0.0 ?? + +--------+----+--------+------+ DEEP SYSTEM +--------+--------+-----+ +--------+----+ ? RIGHT ?? RIGHT RIGHT ? LEFT ? LEFT ? Compress DVT ?? Reflux (secs) Compress DVT +--------+--------+-----+ +--------+----+ CFV ? yes ? None 0.9 ? yes ? None +--------+--------+-----+ +--------+----+ PFV ? yes ? None 0.0 ? +--------+--------+-----+ +--------+----+ FV ? yes ? None 2.1 ? +--------+--------+-----+ +--------+----+ POPV ? yes ? None 0.0 ? +--------+--------+-----+ +--------+----+ PTV ? yes ? None ? +--------+--------+-----+ +--------+----+ PERONEAL yes ? None ? +--------+--------+-----+ +--------+----+ can't evaluate Michael Duarte MD. [employer] Electronically signed on 06/08/2023 2:29:52 PM This study was performed and interpreted by a service accredited by the [employer]reditation Commission (IAC/Vascular), www.intersocietal.org/vascular Report generated by [employer]. ??Final ?? Procedure Note Michael Duarte MD - 06/08/2023 VASCULAR ULTRASOUND REPORT PAOLA KEVIN : 1960 Study Date: 06/08/2023 8:29:27 AM Age: 63 years Tech: BSG Gender: F Referring MD: LISA HURTADO Site: [facility] Study performed: Duplex US venous insufficiency, (right). Indication for study: LE pain/edema Study Quality: Good TECHNIQUE: Lower/upper extremity veins were examined with duplex ultrasound,color-flow and spectral Doppler per exam protocol. Vein compressibility bytransducer pressure was used to evaluate presence/absence of DVT/SVT.Venous flow and competence was evaluated by flow augmentation maneuversper exam protocol. Insufficiency studies were performed with the patientin upright position, with vein diameters measured in mm, and reflux. IMPRESSION: 1. No evidence of deep vein thrombosis in the right lower extremity. 2. Deep vein insufficiency in the right femoral vein. 3. The right greater saphenous vein and small saphenous are patent andcompressible with no evidence for significant venous insufficiency. COMPARISON: Compared to prior study 05-15-2023, previous study is negative DVT in RTLE. FINDINGS: In the right LE, significant edema is visualized from the proximal/midcalf to the ankle. Right Lower Extremity: No evidence of DVT. MEASUREMENTS: + +--------+----+--------+------+ RIGHT Compress SVT Diameter Reflux (mm) (secs) + +--------+----+--------+------+ SFJ yes None 5.8 0.0 + +--------+----+--------+------+ GSV THIGH PRX yes None 3.6 0.0 + +--------+----+--------+------+ GSV THIGH MID yes None 3.7 0.0 + +--------+----+--------+------+ GSV THIGH DST yes None 3.7 0.0 + +--------+----+--------+------+ GSV KNEE yes None 3.2 0.0 + +--------+----+--------+------+ GSV CALF UPPER yes None 3.2 0.0 + +--------+----+--------+------+ GSV CALF MID yes None 2.8 0.0 + +--------+----+--------+------+ GSV CALF LOW yes None 2.4 0.0 + +--------+----+--------+------+ SSV KNEE/SPJ yes None 4.7 0.0 + +--------+----+--------+------+ SSV CALF PRX yes None 4.5 0.0 + +--------+----+--------+------+ SSV CALF MID yes None 4.9 0.0 + +--------+----+--------+------+ SSV CALF DST yes None 3.6 0.0 + +--------+----+--------+------+ DEEP SYSTEM +--------+--------+-----+ +--------+----+ RIGHT RIGHT RIGHT LEFT LEFT Compress DVT Reflux (secs) Compress DVT +--------+--------+-----+ +--------+----+ CFV yes None 0.9 yes None +--------+--------+-----+ +--------+----+ PFV yes None 0.0 +--------+--------+-----+ +--------+----+ FV yes None 2.1 +--------+--------+-----+ +--------+----+ POPV yes None 0.0 +--------+--------+-----+ +--------+----+ PTV yes None +--------+--------+-----+ +--------+----+ PERONEAL yes None +--------+--------+-----+ +--------+----+ can't evaluate Michael Duarte MD. [employer] Electronically signed on 06/08/2023 2:29:52 PM This study was performed and interpreted by a service accredited by theIntersocietal Accreditation Commission (IAC/Vascular),[email or web address].org/vascular Report generated by [employer]. Final Lisa JUAREZ [place] * SCAN-EYE EXAM (06/02/2023 12:00 AM CLOTHING MAN) Scanner OTHER * CT CHEST SCREENING LOW DOSE WO CONTRAST (02/18/2023 9:25 AM CDT) Anatomical Region Laterality Modality Computed Tomogra phy Impressions 02/20/2023 3:14 PM CDT Negative for lung cancer screening purposes. LUNG-RADS CATEGORY: 2: Benign. RADIOLOGIST RECOMMENDATION: Continue annual screening with low-dose CT chest in 12 months. Please note that all CT scans at this facility use dose modulation, iterative reconstruction and/or weight-based dosing when appropriate to reduce radiation dose to as low as reasonably achievable. ?? Dictated by: Etienne Rose MD @02/20/2023 1:25:52 PM ??CRL/blainew Narrative 02/20/2023 3:14 PM CDT For Patients: As a result of the Cures Act, medical imaging exams and procedure reports are released immediately into your electronic medical record. ??You may view this report before your referring provider. ?? If you have questions, please contact your health care provider. CT CHEST SCREENING LOW-DOSE WITHOUT CONTRAST 02/18/2023 INDICATION: Lung cancer screening. History of smoking. High risk patient with greater than 20 pack-year smoking history. TECHNIQUE: Low-dose lung cancer screening non-contrast CT chest. Dose reduction techniques were used. COMPARISON: 02/18/2022 FINDINGS: NODULES: Stable pleural-based nodule right upper lobe measuring 2.8 mm, . Stable nodular like density right middle lobe measuring 3 mm, . LUNGS AND PLEURA: Mild emphysematous change. Mild scarring in both lower lobes. MEDIASTINUM: No adenopathy. CORONARY ARTERY CALCIFICATION: Present. LIMITED UPPER ABDOMEN: Postop changes to the stomach. Gallbladder absent. Atherosclerotic changes. MUSCULOSKELETAL: Mild degenerative changes. Cecilia Hercules MD CT * XR MAMMO OUSMANE BILAT SCREEN (02/02/2023 9:29 AM CDT) Anatomical Region Laterality Modality BREASTS, Breast Left, Breast Right Bilateral Mammography Impressions 02/02/2023 1:00 PM CDT ??There is no radiographic evidence for malignancy. ??Recommend annual mammograms. MAMMOGRAM ASSESSMENT: ??ACR 1 Negative PATIENTS: You will also receive a letter with your examination results in an easy to read format. ??If you have questions about your results, please contact your referring provider. Narrative 02/02/2023 1:00 PM CDT For Patients: As a result of the Cures Act, medical imaging exams and procedure reports are released immediately into your electronic medical record. You may view this report before your referring provider. If you have questions, please contact your health care provider. XR MAMMO OUSMANE BILAT SCREEN [[id number]] CLINICAL HISTORY: ??This is an asymptomatic 63 y.o. patient. INDICATION FOR EXAM: Mammogram Screening. TECHNIQUE: CC & MLO views were obtained. ??This study was evaluated with the assistance of Computer-Aided Detection. Breast Tomosynthesis was used in interpretation. COMPARISON FILM: Yes 01/30/22 [employer] 02/13/21 [employer] FINDINGS: ??The breasts have scattered areas of fibroglandular density. There are no dominant masses, suspicious micro calcifications or areas of architectural distortion. Cecilia Hercules MD MAMMO * (ABNORMAL) XR DXA BONE DENSITY 2 SITES AXIAL [91429.1] (02/02/2023 9:18 AM CDT) Anatomical Region Laterality Modality Spine, HIPS, HIPL, HIPR Other Impressions 02/09/2023 8:00 AM CDT Osteoporosis. RECOMMENDATIONS: The National Osteoporosis Foundation recommends pharmacologic treatment for patients with T-scores of -2.5 or less, patients with prior history of fragility fractures, or patients with 10-year probability of greater than 3% at hips or greater than 20% of suffering major osteoporotic fractures. Recommend continued optimization of calcium and vitamin D intake through dietary means and/or supplementation and regular exercise. Consider pharmacologic therapy for osteoporosis. Follow-up bone density reading in 2 years if therapy initiated to assess therapeutic efficacy. Kiley Flynn PA-C [facility] 02/09/2023 Narrative 02/09/2023 8:00 AM CDT For Patients: Results are automatically released to your [facility] ([employer]) account once available, in compliance with federal regulations. This means that you may see your results before your provider has had a chance to review them. Please allow 2-3 business days for your provider to comment on the results. XR DXA Bone Mineral Density (BMD) EXAM LOCATION: [address] [address] PATIENT NAME: Paola Kevin DATE OF : 1960 EXAM DATE: 02/02/2023 REQUESTING PROVIDER: Lisa Hurtado PA GENDER AT : female HEIGHT: 5' 0.47 (01/28/2023) WEIGHT: ??145 lb 9.6 oz (01/28/2023) MENOPAUSAL STATUS: Postmenopausal RACE/ETHNICITY: White RISK FACTORS: Smoking (prior), Steroid Medication (non-topical), and White Race CURRENT MEDICATION FOR BONE LOSS: NONE INDICATION: Menopause COMPARISON DATE(S): 2009 DXA scans are compared to prior studies for a patient only when the two (or more) studies were performed on the same scanner. It is not possible to compare data generated on one scanner to data from another because there are not standards in DXA equipment. This applies even if the two scanners are made by the same it service manager. PROCEDURE: Dual-energy x-ray absorptiometry performed with routine technique. Reporting is completed in the form of a T-score. The T-score represents the standard deviation from peak bone mass based on young healthy adult. A Z-score is used for diagnosis in premenopausal women, and for men under the age of 50. FINDINGS: RESULT LUMBAR SPINE L1 - L3 ??BMD: 0.994 g/cm2 T-Score: - 1.5 Z-Score: + 0.0 Change from prior in 2009: ??Increase 3.0%. RESULTS FEMUR Left femoral neck BMD: 0.711 g/cm2 T-Score: - 2.4 Z-Score: - 0.9 Change from prior in 2009: ??Decrease 9.0%. Right femoral neck BMD: 0.691 g/cm2 T-Score: - 2.5 Z-Score: - 1.1 Change from prior in 2010: ??Decrease 7.0%. Left hip BMD: 0.725 g/cm2 T-Score: - 2.2 Z-Score: - 1.1 Change from prior in 2009: ??Decrease 14.9%. Right hip BMD: 0.673 g/cm2 T-Score: - 2.7 Z-Score: - 1.5 Change from prior in 2009: ??Decrease 20.4%. WHO criteria: Normal: T-score at or above -1 SD Osteopenia: T-score between -1.1 and -2.4 SD Osteoporosis: T-score at or below -2.5 SD Lisa JUAREZ DEXA * LIPID PANEL W REFLEX MEASURED LDL (01/28/2023 2:12 PM CDT) [facility] CHOLESTEROL,TOTAL 135 100 - 199 mg/dL 01/28/2023 9:15 PM CDT [facility] Comment: Cholesterol, Total Reference Ranges Desirable <200 mg/dL Borderline 200-239 mg/dL High >=240 mg/dL TRIGLYCERIDES 71 <150 mg/dL 01/28/2023 9:15 PM CDT [facility] HDL CHOLESTEROL 58 >40 mg/dL 9:15 PM CDT [facility] NON-HDL CHOLESTEROL 77 <145 mg/dl 01/28/2023 9:15 PM CDT [facility] CHOL/HDL RATIO 2.33 <4.50 01/28/2023 9:15 PM CDT [facility] LDL CHOLESTEROL 63 <=130 mg/dL 01/28/2023 9:15 PM CDT [facility] VLDL CHOLESTEROL 14 <=30 mg/dL 01/28/2023 9:15 PM CDT [facility] PROVIDER ORDERED STATUS RANDOM 01/28/2023 9:15 PM CDT [facility] Blood BLOOD SPECIMEN / Unknown Venipuncture / Unknown 01/28/2023 2:12 PM CDT 01/28/2023 2:12 PM CDT Lisa JUAREZ CHEMISTRY [facility] [address] [place] [address], [place] * SCAN-COLONOSCOPY (01/27/2023 12:00 AM CDT) Scanner OTHER * Patient Source Rapid HIV - Unknown HIV (09/11/2013 4:55 AM CDT) SOURCE RAPID HIV SCREEN Non-Reacti ve Non-Reacti ve 09/11/2013 5:41 AM CDT [facility] Blood specimen (specimen) BLOOD SPECIMEN / Unknown Non-Lab Venipuncture / Unknown 09/11/2013 4:55 AM CDT 09/11/2013 5:03 AM CDT Mo Molina MD SEND OUTS [facility] SENDOUT INTERNAL ZIP [address] [place] [id number] * Patient Source ANTI HCV (09/11/2013 4:55 AM CDT) HEPATITIS C ANTIBODY Non-Reacti ve Non-Reacti ve 09/11/2013 10:36 AM CDT [facility] Blood specimen (specimen) BLOOD SPECIMEN / Unknown Non-Lab Venipuncture / Unknown 09/11/2013 4:55 AM CDT 09/11/2013 5:03 AM CDT Narrative [facility] - 09/11/2013 10:36 AM CDT Antibodies to HCV not detected; does not exclude the possibility of exposure to HCV. Mo Molina MD SEND OUTS [facility] 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 Healthcare Directive 05/23/2019 7:56 AM * Full Code (Latest Code Status on File) Date Activated Date Inactivated Comments 01/21/2021 7:44 AM 01/21/2021 12:08 PM Question Answer Comments Code Status Discussion: Per Existing Order * Full Code Date Activated Date Inactivated Comments 12/27/2020 11:59 PM 12/28/2020 6:24 PM Question Answer Comments Code Status Discussion: Discussed * Full Code Date Activated Date Inactivated Comments 11/19/2020 1:23 PM 11/19/2020 5:08 PM Question Answer Comments Code Status Discussion: Per Existing Order * Full Code Date Activated Date Inactivated Comments 08/15/2020 11:46 AM 08/15/2020 8:57 PM Question Answer Comments Code Status Discussion: Discussed * Full Code Date Activated Date Inactivated Comments 06/20/2020 12:56 PM 06/20/2020 5:57 PM Question Answer Comments Code Status Discussion: Discussed 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 Relationship Specialty Start Date End Date Cecilia Hercules MD [address] [place] [address] PCP - General Family Practice 10/26/20 Pranay Gamino MD [address] [facility] [place] [address] Gastroenterology Gastroenterology 02/04/11 Katherin Mckenna [address] [facility] [place] [address] Neurology Neurology 10/14/11 Marija Harper MD [address] [place] [address] 01/30/14 Heavenly Hathaway, JORDAN [address] [facility] [place] [address] Nurse Practitioner Surgery - General 09/21/[address] [facility] [place] [address] Registered Dietitian Lead Investigator 09/21/18 Markell Blake MD [address] [facility] [place] [address] General Surgery Surgery - General 09/21/18
--- OUTSIDE RECORDS SUMMARY | 2023-08-18 22:30 | XMS_ITS | Data Portability ---
Author Name Unknown Address [address] [place] [address] Phone [phone] Organization [facility], [facility] Address [address] [place] [address] Assessment No assessment recorded. Plan of Treatment Reminders Order Date Submit Date Provider Last Modified By Organization Details Last Modified Time Details Appointments None recorded. Lab urinalysis , dipstick 2022 023 TERENCE [facility], [address], [address], [place], [address], 3 13:10:33 urinalysis , dipstick 2021 022 [facility], [address], [address], [place], [address], 2 11:43:22 Referral None recorded. Procedures None recorded. Surgeries None recorded. Imaging XR, kidney + ureter + bladder 2021 023 kwatry Not available 3 15:26:42 XR, kidney + ureter + bladder 2022 025 kwatry [facility], [address], [place], [address], 3 15:26:42 XR, kidney + ureter + bladder 2021 023 kwatry Not available 3 15:26:42 Medication Orders None recorded. Patient TargetsNo targets recorded. Patient InstructionsNo instructions recorded. Reason for Referral None Reported. Results Created Date Observation Date Name Description Value Unit Range Abnormal Flag LastModifiedBy Organization Detail LastModifiedTime 02/04/20 22 02/03/2022 urina lysis , dipst ick Color-Status Yellow Not Available [address], [place], [address], 02/03/2022 11:42:55 02/04/20 22 02/03/2022 urina lysis , dipst ick Clarity-Stat us Slight ly Cloudy Not Available [address], [place], [address], 02/03/2022 11:42:55 02/04/20 22 02/03/2022 urina lysis , dipst ick pH-Status 7.0 Not Available [address], [place], [address], 02/03/2022 11:42:55 03/18/20 23 03/18/2023 urina lysis , dipst ick Color-Status Not Available [address], [place], [address], 03/18/2023 12:19:46 03/18/20 23 03/18/2023 urina lysis , dipst ick Clarity-Stat us Not Available [address], [place], [address], 03/18/2023 12:19:46 12/30/19 21 12/28/2020 XR, urogr am, retro grade No observ ation record ed. Not Available 12/31/2020 08:57:38 02/04/20 22 01/17/2022 CT, abdom en + pelvi s, w/o contr ast No observ ation record ed. Not Available 02/03/2022 11:39:44 Result Notes None recorded. Problems Name Status Onset Date Resolution Date Notes Provider Name and Address Organization Details Recorded Time Kidney stone Active 2 Oren Martin MD [address], [place], [address], [facility] 02/03/2022 13:34:50 Problem Notes None recorded. Procedures Surgical History Date Name Laterality Status Provider Name and Address Organization Details Recorded Time 0 Colonoscopy completed Dalia Garrett [facility] 02/03/2022 11:35:35 Imaging Results Imaging Date Name Status LastModified by Organiz ation Details LastModified Time 12/28/2020 XR, urogram, retrograde completed Information not available 12/31/2020 08:57:38 01/17/2022 CT, abdomen + pelvis, w/o contrast completed Information not available 02/03/2022 11:39:44 Procedure Notes None recorded. Medical Equipment None Reported. Allergies No known drug allergies Medications Name Sig Start Date Stop Date Status Note LastModified by Organization Details LastModified Time celecoxib 200 mg capsule TAKE 1 CAPSULE BY MOUTH TWICE A DAY 03/18 completed Not Available Not Available Not Available atorvastati n 40 mg tablet TAKE 1 TABLET BY MOUTH AT BEDTIME active Not Available Not Available No t Available tizanidine 4 mg tablet TAKE 1 TABLET BY MOUTH EVERY 6 HOURS IF NEEDED FOR MUSCLE SPASM. 03/18 completed Not Available Not Available Not Available hydrocodone 5 mg-acetamin ophen 325 mg tablet TAKE 1 TABLET BY MOUTH EVERY 6 HOURS IF NEEDED FOR PAIN. MAX ACETAMINO PHEN DOSE 4000 MG IN 24 HRS. 03/18 completed Not Available Not Available Not Available sucralfate 1 gram tablet TAKE 1 TABLET BY MOUTH (1 GRAM) 4 TIMES A DAY BEFORE MEALS AND AT BEDTIME 03/18 completed Not Available Not Available Not Available ondansetron HCl 4 mg tablet TAKE 1 TABLET (4 MG) BY MOUTH EVERY 8 HOURS IF NEEDED FOR NAUSEA/VO MITING. active Not Available Not Available No t Available prednisone 20 mg tablet TAKE 3 TABLETS BY MOUTH EVERY DAY FOR 7 DAYS 03/18 completed Not Available Not Available Not Available rizatriptan 10 mg tablet PLEASE SEE ATTACHED FOR DETAILED DIRECTION S active Not Available Not Available No t Available terconazole 0.8 % vaginal cream INSERT 1 APPLICATO RFUL INTO THE VAGINA AT BEDTIME FOR 3 DAYS. 03/18 completed Not Available Not Available Not Available olanzapine 5 mg tablet TAKE 1 TABLET BY MOUTH EVERYDAY AT BEDTIME 03/18 completed Not Available Not Available Not Available midodrine 5 mg tablet TAKE 2 TABLETS (10 MG) BY MOUTH 2 TIMES DAILY AT 8 AM AND 4 PM. active Not Available Not Available No t Available cyanocobala min (vit B-12) 1,000 mcg tablet TAKE 1 TABLET (1,000 MCG) BY MOUTH ONCE DAILY. active Not Available Not Available No t Available Accu-Chek Softclix Lancets USE TO TEST DAILY. active Not Available Not Available No t Available risperidone 0.25 mg tablet TAKE 1 TABLET BY MOUTH ONCE DAILY ALONG WITH 0.5 MG TAB FOR TOTAL DOSE OF 0.75 MG active Not Available Not Available No t Available acetaminoph en 300 mg-codeine 30 mg tablet TAKE 1 TABLET BY MOUTH EVERY 6 HOURS IF NEEDED FOR PAIN. MAX ACETAMINO PHEN DOSE 4000MG IN 24 HRS. 03/18 completed Not Available Not Available Not Available prochlorper azine maleate 10 mg tablet TAKE 1 TABLET BY MOUTH EVERY 8 HOURS IF NEEDED FOR NAUSEA/VO MITING. active Not Available Not Available No t Available lamotrigine 25 mg chewable dispersible tablet CHEW 1 TABLET BY MOUTH EVERY MORNING AND AT NIGHT 03/18 completed Not Available Not Available Not Available spironolact one 25 mg tablet TAKE 1 TABLET BY MOUTH TWICE A DAY active Not Available Not Available No t Available lamotrigine 25 mg tablet TAKE 2 TABLETS BY MOUTH DAILY AT NOON 03/18 completed Not Available Not Available Not Available ketorolac 10 mg tablet TAKE 1 TABLET BY MOUTH THREE TIMES DAILY NEEDED. active Not Available Not Available No t Available oxycodone-a cetaminophe n 5 mg-325 mg tablet TAKE 1 2 TABLETS EVERY 6 HOURS IF NEEDED FOR PAIN. MAX ACETAMINO PHEN DOSE 4000MG IN 24 HRS. 03/18 completed Not Available Not Available Not Available terbinafine HCl 250 mg tablet TAKE 1 TABLET (250 MG) BY MOUTH ONCE DAILY FOR 14 DAYS. 11/08 /2023 completed Not Available Not Available Not Available levothyroxi ne 88 mcg tablet TAKE 1 TABLET BY MOUTH EVERY DAY active Not Available Not Available No t Available hydromorpho ne 2 mg tablet 03/18 completed Not Available Not Available Not Available alprazolam 0.25 mg tablet TAKE 1 TABLET BY MOUTH TWICE A DAY NEEDED FOR PANIC active Not Available Not Available No t Available zinc gluconate 30 mg tablet TAKE 2 TABLETS (60 MG) BY MOUTH 2 TIMES DAILY WITH MEALS. active Not Available Not Available No t Available metoclopram suzanne 5 mg tablet TAKE 1 TABLET (5 MG) BY MOUTH 2 TIMES DAILY BEFORE MEALS. 03/18 completed Not Available Not Available Not Available temazepam 15 mg capsule TAKE 1 CAPSULE BY MOUTH EVERYDAY AT BEDTIME 03/18 completed Not Available Not Available Not Available tamsulosin 0.4 mg capsule TAKE 1 CAPSULE BY MOUTH DAILY. active Not Available Not Available No t Available hydrocortis one-acetic acid 1 %-2 % ear drops PLACE 4 DROPS INTO BOTH EARS 4 TIMES DAILY FOR 7 DAYS. 03/18 completed Not Available Not Available Not Available temazepam 30 mg capsule TAKE 1 CAPSULE BY MOUTH EVERYDAY AT BEDTIME 03/18 completed Not Available Not Available Not Available meclizine 25 mg tablet TAKE 1 TABLET (25 MG) BY MOUTH 3 TIMES DAILY IF NEEDED FOR VERTIGO. 03/18 completed Not Available Not Available Not Available baclofen 10 mg tablet PLEASE SEE ATTACHED FOR DETAILED DIRECTION S active Not Available Not Available No t Available hydrocodone 7.5 mg-acetamin ophen 325 mg tablet TAKE 1 TABLET BY MOUTH EVERY 6 HOURS IF NEEDED FOR PAIN MAX ACETAMINO PHEN DOSE 4000MG IN 24 HRS. 03/18 completed Not Available Not Available Not Available cephalexin 500 mg capsule TAKE 1 CAPSULE (500 MG) BY MOUTH 2 TIMES DAILY FOR 7 DAYS. 02/03 completed Not Available Not Available Not Available buspirone 10 mg tablet TAKE 1/2 TABLET BY MOUTH 2 TIMES A DAY FOR 7 DAYS, THEN INCREASE TO 1 TAB TWICE A DAY active Not Available Not Available No t Available lansoprazol e 30 mg capsule,del ayed release TAKE 1 CAPSULE BY MOUTH ONCE DAILY active Not Available Not Available No t Available hyoscyamine 0.[address] 1 TABLET (0.125 MG) UNDER THE TONGUE EVERY 4 HOURS IF NEEDED FOR COLIC FOR UP TO 30 DOSES. active Not Available Not Available No t Available lamotrigine 5 mg chewable dispersible tablet TAKE 2 TABLETS BY MOUTH EVERY MORNING 03/18 completed Not Available Not Available Not Available omeprazole 20 mg capsule,del ayed release 1 CAPSULE 2X DAILY BEFORE MEALS. MAY OPEN SPRINKLE ON JELLO (TAKE X1 MNTH POSTOP TO PROTECT STOMACH) active Not Available Not Available No t Available hydrocortis one 2.5 % topical cream APPLY TOPICALLY TO AFFECTED AREA(S) 2 TIMES DAILY active Not Available Not Available No t Available montelukast 10 mg tablet TAKE 1 TABLET BY MOUTH EVERY DAY active Not Available Not Available No t Available dronabinol 10 mg capsule TAKE 1 CAPSULE (10 MG) BY MOUTH 2 TIMES DAILY BEFORE MEALS. active Not Available Not Available No t Available zolpidem 5 mg tablet TAKE 1 TABLET BY MOUTH AT BEDTIME NEEDED FOR INSOMNIA. active Not Available Not Available No t Available mirtazapine 15 mg tablet TAKE 1/2 TO 1 TABLET BY MOUTH AT BEDTIME FOR INSOMNIA active Not Available Not Available No t Available clobetasol 0.05 % topical ointment APPLY ONE FINGERTIP OF OINTMENT TO VULVA NIGHTLY active Not Available Not Available No t Available mirtazapine 15 mg disintegrat ing tablet TAKE 1 TABLET BY MOUTH EVERYDAY AT BEDTIME 03/18 completed Not Available Not Available Not Available scopolamine 1 mg over 3 days transdermal patch APPLY 1 PATCH ON DRY, CLEAN, HAIRLESS SKIN EVERY 72 HOURS. active Not Available Not Available No t Available albuterol sulfate HFA 90 mcg/actuati on aerosol inhaler INHALE 2 PUFFS BY MOUTH EVERY 4 HOURS IF NEEDED FOR SHORTNESS OF BREATH 1ST CHOICE. 03/18 completed Not Available Not Available Not Available trifluopera zine 1 mg tablet TAKE 1 TABLET BY MOUTH EVERY DAY AT BEDTIME. active Not Available Not Available No t Available ondansetron 4 mg disintegrat ing tablet PLACE TAKE 1 TABLET (4 MG) ON THE TONGUE EVERY 8 HOURS NEEDED FOR NAUSEA AND VOMITING 03/18 completed Not Available Not Available Not Available fludrocorti sone 0.1 mg tablet TAKE 1 TABLET (0.1 MG) BY MOUTH ONCE DAILY. active Not Available Not Available No t Available risperidone 1 mg tablet TAKE 1 TABLET BY MOUTH EVERYDAY AT BEDTIME 03/18 completed Not Available Not Available Not Available colestipol 1 gram tablet TAKE 1 TABLET (1 G) BY MOUTH 2 TIMES DAILY. active Not Available Not Available No t Available lamotrigine 100 mg tablet TAKE 2 TABLETS EVERY MORNING & 2 TABLETS AT NIGHT 2022 active Not Available Not Available Not Avai lable Ketostix strips USE TO TEST NEEDED. active Not Available Not Available No t Available risperidone 0.5 mg tablet TAKE 1 TABLET AT NIGHT WITH A 0.25MG FOR TOTAL DOSE 0.75 MG 03/18 completed Not Available Not Available Not Available metoclopram suzanne 10 mg tablet TAKE 1 TABLET (10 MG) BY MOUTH THREE TIMES DAILY BEFORE MEALS. active Not Available Not Available No t Available amoxicillin 875 mg-potassiu m clavulanate 125 mg tablet TAKE 1 TABLET BY MOUTH TWO TIMES DAILY WITH MEALS FOR 5 DAYS. 02/03 completed Not Available Not Available Not Available acarbose 25 mg tablet TAKE 2 TABLETS BY MOUTH AT LUNCH. 03/18 completed Not Available Not Available Not Available oxycodone 5 mg tablet TAKE 1 TABLET BY MOUTH EVERY 6 HOURS IF NEEDED FOR PAIN. 03/18 completed Not Available Not Available Not Available neomycin-po lymyxin-hyd rocort 3.5 mg-10,000 unit/mL-1 % ear drops,susp PLACE 3 DROPS INTO LEFT EAR 3 TIMES DAILY. 03/18 completed Not Available Not Available Not Available 3-Day Vaginal 2 % cream INSERT INTO THE VAGINA AT BEDTIME FOR 3 DAYS. active Not Available Not Available No t Available Vitamin B-12 2,[address] 1 TABLET (2,500 MCG) UNDER THE TONGUE ONCE DAILY. active Not Available Not Available No t Available cholestyram ine (with sugar) 4 gram powder for susp in a packet MIX ONE PACKET (4 GRAMS) IN 8 OUNCES FLUID OR APPLESAUC E AND TAKE ONCE DAILY active Not Available Not Available No t Available eszopiclone 3 mg tablet TAKE 1 TABLET BY MOUTH AT NIGHT active Not Available Not Available No t Available temazepam 22.5 mg capsule TAKE 1 CAPSULE BY MOUTH EVERYDAY AT BEDTIME active Not Available Not Available No t Available Neupro 2 mg/24 hour transdermal 24 hour patch APPLY 1 PATCH ON DRY, CLEAN, HAIRLESS SKIN ONCE DAILY. 03/18 completed Not Available Not Available Not Available GaviLyte-G 236 gram-22.74 gram-6.74 gram-5.86 gram oral solution 240 ML ORALLY EVERY 10 MINUTES UNTIL FECAL EFFLUENT IS CLEAR active Not Available Not Available No t Available Neupro 3 mg/24 hour transdermal 24 hour patch APPLY 1 PATCH ON DRY, CLEAN, HAIRLESS SKIN ONCE DAILY. 03/18 completed Not Available Not Available Not Available Farxiga 5 mg tablet TAKE 1 TABLET BY MOUTH EVERY DAY 03/18 completed Not Available Not Available Not Available Jardiance 10 mg tablet TAKE 1 TABLET BY MOUTH EVERY DAY active Not Available Not Available No t Available Accu-Chek Guide test strips USE TO TEST DAILY. USE DIRECTED. active Not Available Not Available No t Available Accu-Chek Guide Glucose Meter USE TO TEST ONE TIME DAILY. active Not Available Not Available No t Available FreeStyle Maegan 2 Sensor kit USE ONE SENSOR EVERY 14 DAYS active Not Available Not Available No t Available FreeStyle Maegan 2 [place] USE ONCE active Not Available Not Available Not Available Ozempic 0.25 mg or 0.5 mg (2 mg/3 mL) subcutaneou s pen injector INJECT 0.25 MG SUBCUTANE OUSLY ONE TIME PER WEEK active Not Available Not Available No t Available Vitals Date Recorded Body height Body mass index (BMI) Body weight Provider Name and Address Organization Details Last Updated DateTime 02/03/2022 152.4 cm 27.9 kg/m2 42724.71 g Dalia hendrickson [facility] 02/03/2022 11:34:10 Date Recorded Body height Body mass index (BMI) Body weight Provider Name and Address Organization Details Last Updated DateTime 03/18/2023 152.4 cm 27.7 kg/m2 03229.12 g Rigo hendrickson [facility] 03/18/2023 11:36:43 Social History Question Answer Notes LastModified by Organizat ion Details LastModified Time Tobacco Smoking Status Former Smoker Dalia hendrickson [facility] 02/03/2022 11:35:20 What Is Your Level Of Alcohol Consumption? None Information not available 03/18/2023 What Is Your Level Of Caffeine Consumption? None Information not available 03/18/2023 What Was The Date Of Your Most Recent Tobacco Screening? 02/03/2022 Information not available 02/03/2022 Do You Or Have You Ever Used Any Other Forms Of Tobacco Or Nicotine? No Information not available 02/03/2022 Sex: Female Functional Status None recorded. Mental Status None recorded. Family History Relationship Description Onset Age of this Age Resolved Age Notes Mother Family history of cancer Brother Family history of cancer Medical History Condition Response Sexually Transmitted Infection N Diabetes Y Other N Bleeding Disorder N High Blood Pressure Y Kidney Stones Y High Cholesterol Y GERD/Acid Reflux N Heart Disease N Cancer N Lung Disease N Depression N Gynecological History Statement/Question Response Sexually Active? Y Obstetrics History GPAL:G 3 P 0 0 0 0 Immunizations Vaccine Type Date Status Provider Name and Address Organization Details Recorded Time zoster recombinant 03/11/2023 completed Swathi hendrickson [facility] 03/20/2023 11:12:31 Influenza vaccine, quadrivalent, adjuvanted 01/28/2023 kennedy hendrickson [facility] 03/20/2023 11:12:31 COVID-19, mRNA, LNP-S, PF, 30 mcg/0.3 mL dose 07/30/[address] [facility] 03/20/2023 11:12:31 COVID-19, mRNA, LNP-S, PF, 30 mcg/0.3 mL dose 08/20/[address] [facility] 03/20/2023 11:12:31 COVID-19, mRNA, LNP-S, PF, 30 mcg/0.3 mL dose 03/26/[address] [facility] 03/20/2023 11:12:31 Pneumococcal conjugate PCV20, polysaccharide [id number] conjugate, adjuvant, PF 10/16/2021 kennedy hendrickson [facility] 03/20/2023 11:12:31 COVID-19, mRNA, LNP-S, PF, 30 mcg/0.3 mL dose, leland-sucrose 10/16/2021 kennedy hendrickson [facility] 03/20/2023 11:12:31 COVID-19, mRNA, LNP-S, bivalent, PF, 30 mcg/0.3 mL dose 01/27/2022 completed Swathi hendrickson, [facility] 03/20/2023 11:12:31 COVID-19, mRNA, LNP-S, PF, 50 mcg/0.5 mL 03/06/2023 completed Swathi Vasquez null, [facility] 03/20/2023 11:12:31 pneumococcal polysaccharide PPV23 04/10/2008 completed Swathi Vasquez null, [facility] 03/20/2023 11:12:31 influenza, unspecified formulation 02/09/2020 [facility] 11:12:31 Tdap 09/23/2017 [facility] 11:12:31 Tdap 01/11/2010 [facility] 11:12:31 Novel [id number], all formulations 04/19/2009 [facility] 11:12:31 zoster live 11/26/2011 [facility] 11:12:31 Influenza, seasonal, injectable 02/17/2013 [facility] 11:12:31 Influenza, seasonal, injectable 03/09/2010 [facility] 11:12:31 Influenza, seasonal, injectable, preservative free 03/28/2011 [facility] 11:12:31 Influenza, seasonal, injectable, preservative free 04/19/2009 [facility] 11:12:32 [facility] 11:12:32 Hep B, adult 08/23/2004 completed Swathi hendrickson [facility] 03/20/2023 11:12:32 Hep B, adult 12/27/2004 completed Swathi hendrickson [facility] 03/20/2023 11:12:32 influenza, injectable, quadrivalent, preservative free 05/26/2018 completed Swathi hendrickson [facility] 03/20/2023 11:12:32 influenza, injectable, quadrivalent, preservative free 01/16/2022 completed Swathi hendrickson [facility] 03/20/2023 11:12:32 influenza, injectable, quadrivalent, preservative free 01/25/2014 completed Swathi hendrickson [facility] 03/20/2023 11:12:32 influenza, injectable, quadrivalent, preservative free 01/27/2019 completed Swathi hendrickson [facility] 03/20/2023 11:12:32 influenza, injectable, quadrivalent, preservative free 02/06/2021 completed Swathi hendrickson [facility] 03/20/2023 11:12:32 influenza, injectable, quadrivalent, preservative free 02/27/2016 completed Swathi hendrickson [facility] 03/20/2023 11:12:32 influenza, injectable, quadrivalent, preservative free 03/10/2017 completed Swathi hendrickson [facility] 03/20/2023 11:12:32 influenza, injectable, quadrivalent, preservative free 03/16/2015 completed Swathi hendrickson [facility] 03/20/2023 11:12:32 Past Encounters Encounter ID Performer Location Encounter Start Date Encounter Closed Date Diagnosis/Indication Diagnosis SNOMED-CT Code [id number] [facility] [address] [place] [address] 02/03/2022 11:21:52 02/07/2022 15:40:14 Kidney stone [id number] [facility] [address] [place] [address] 03/18/2023 11:00:23 03/20/2023 15:26:42 Kidney stone [id number] Health Concerns Section Related Observation LastModified by Organization Detai ls LastModified Time None Recorded Concern Status LastModified by Organization Details LastModified Time None Recorded Advance Directives Directive None Recorded Payers Encounter Date Sequence Insurance Name Policy Number Policy Denis Covered Member ID Denis Member ID Guarantor Name 03/18/2023 1 [employer] [id number] Paola Fields [id number] Paola Dean Donnie 02/03/2022 1 [place] [id number] Paola Fields [id number] Paola Fields Notes Date Note Type Note Provider Name and Address Organization Details Recorded Time 02/03/2022 text/html HPI Notes: She w as referred to tx in December 2020 for a 5 mm left distal ureteral stone and underwent ureteroscopy with laser lithotripsy. She underwent 24-hour urine testing with Dr. Fernandez and this showed low volume and mildly elevated oxalate. Follow-up noncontrast CT scan from [facility] dated 01/17/2022 was reviewed today and shows a small 2 mm right upper pole renal stone otherwise negative. She denies any stone symptoms. Oren Martin MD [address], [place], [address], [facility] 02/03/2022 13:35:32 03/18/2023 text/html HPI Notes: 02/03/22: She was referred to tx in December 2020 for a 5 mm left distal ureteral stone and underwent ureteroscopy with laser lithotripsy. She underwent 24-hour urine testing with Dr. Fernandez and this showed low volume and mildly elevated oxalate. Follow-up noncontrast CT scan from [facility] dated 01/17/2022 was reviewed today and shows a small 2 mm right upper pole renal stone otherwise negative. She denies any stone symptoms. 03/18/23: She believes that she passed 1 stone about 6 weeks ago. No symptoms since that time. No blood in the urine. KUB reviewed today and there is a lot of gas and stool obscuring the entire abdomen but no obvious stones on my review or official radiology report. Oren Martin MD [address], [place], [address], [facility] 03/18/2023 12:21:34 OBGyn Episode No OBEpisode recorded.
--- OUTSIDE RECORDS SUMMARY | 2023-08-18 22:30 | XMS_ITS | Clinical Summary ---
Author Name Unknown Organization [facility] Address [address] [place] [address] Care Team Providers Care Pin Sorter And Bagger Name Role Phone Mili Barajas APRN AUTOMATION CONTROLS EXPERT Primary Care Provider Allergies Active Allergy Reactions Criticality Noted Date Comments Aripiprazole Hives 07/08/2013 Aspirin Anaphylaxis High 07/08/2013 Ciprofloxacin Nausea and Vomiting 07/08/2013 Codeine Nausea and Vomiting 07/08/2013 Fluconazole Hives 07/08/2013 Adalimumab Nausea and Vomiting 07/08/2013 Metformin Nausea and Vomiting 07/08/2013 pancreatitis Oxycodone-Acetaminophen Hives 01/21/2017 OK To TAKE VICODIN Sulfa Antibiotics Anaphylaxis High 07/08/2013 Medications Medication Sig Dispensed Refills Start Date End Date Status ATORVASTATIN CALCIUM PO Take 40 mg by mouth daily 0 Active albuterol (PROAIR HFA/PROVENTIL HFA/VENTOLIN HFA) 108 (90 BASE) MCG/ACT InhalerIndicatio ns:Asthma Inhale 2 puffs into the lungs every 4 hours as needed for shortness of breath / dyspnea or wheezing 0 Active vortioxetine (TRINTELLIX) 20 MG tabletIndication s:Major Depressive Disorder Take 25 mg by mouth daily 0 Active ondansetron (ZOFRAN-ODT) 4 MG ODT tab Take 4 mg by mouth every 8 hours as needed for nausea 0 Active levothyroxine (SYNTHROID/LEVOT HROID) 88 MCG tabletIndication s:Depression with suicidal ideation Take 1 tablet (88 mcg) by mouth daily 30 tablet 0 08/27/2019 Active NONFORMULARY This is a multivitamin skin patch patient uses prior to admission. 0 08/29/2019 Active Montelukast Sodium (SINGULAIR PO) Take 10 mg by mouth At Bedtime 0 7 Discontinue d(Patient Discharge) Active Problems Problem Noted Date Diagnosed Date Major depressive disorder, recurrent episode, se venessa 08/31/2019 Depression with suicidal ideation 08/22/2019 Moderate episode of recurrent major depressive d isorder 10/07/2012 Posttraumatic stress disorder 04/16/2012 Obsessive-compulsive disorder 03/05/2012 Family History Medical History Relation Comments Unknown/Adopted Mother Relation Status Comments Mother Social History Tobacco Use Types Packs/Day Years Used Date Smoking Tobacco: Former Cigarettes 1 40 Q uit: 2012 Smokeless Tobacco: Never Alcohol Use Standard Drinks/Week Comments No 0 (1 standard drink = 0.6 oz pur e alcohol) PHQ-2 Answer Date Recorded PHQ-2 Score 2 09/20/2019 Adolescent Education Answer Date Record ed Getting School Help Needed Not on file 02/19 Sex and Gender Information Value Date Recorded Sex Assigned at Not on file Gender Identity Not on file Sexual Orientation Not on file Last Filed Vital Signs Vital Sign Reading Time Taken Comments Blood Pressure 113/70 08/29/2019 4:15 PM CDT Pulse 83 08/29/2019 4:15 PM CDT Temperature 36.8 ??C (98.3 ??F) 08/29/2019 4:15 PM CD T Respiratory Rate 18 08/29/2019 7:00 AM CDT Oxygen Saturation 97% 08/28/2019 3:44 PM CDT Inhaled Oxygen Concentration - - Weight 81.6 kg (180 lb) 11/07/2019 9:00 AM CDT Height 154.9 cm (5' 1) 11/07/2019 9:00 AM CDT Body Mass Index 34.01 11/07/2019 9:00 AM CDT Plan of Treatment Not on file Advance Directives For more information, please contact: [phone] Latest Code Status on File Code Status Date Activated Date Inactivated Comments Full Code 08/22/2019 6:27 PM 08/29/2019 9:18 PM Question Answer Comments Code status determined by: Unable to dis cuss and no AD/POLST on file; continue PREVIOUSLY ORDERED code status Care Teams Pin Sorter And Bagger Relationship Specialty Start Date End Date Mili Barajas, RJ AUTOMATION CONTROLS EXPERT [facility] [address] [address] PCP - General Nurse Practitioner 08/24/19
--- OUTSIDE RECORDS SUMMARY | 2023-08-18 22:30 | XMS_ITS | Referral Summary ---
Author Name Unknown Organization [facility] Address [address] [place] [address] Care Team Providers Care University Controller Name Role Phone Mili Barajas APRN HEATING SYSTEMS INSTALLER Primary Care Provider Allergies Active Allergy Reactions [...] Posttraumatic stress disorder 04/16/2012 Obsessive-compulsive disorder 03/05/2012 Social History Tobacco Use Types Packs/Day Years [...] Advance Directives For more information, please contact: [phone] Latest Code Status on File Code Status Date Activated Date Inactivated Comments Full Code 08/22/2019 6:27 PM 08/29/2019 9:18 PM Question Answer Comments Code status determined by: Unable to dis cuss and no AD/POLST on file; continue PREVIOUSLY ORDERED code status Care Teams University Controller Relationship Specialty Start Date End Date Mili Barajas, RIPENING ROOM HAND HEATING SYSTEMS INSTALLER [facility] [address] [place], [place] [address] PCP - General Nurse Practitioner 08/24/19
--- OUTSIDE RECORDS SUMMARY | 2023-08-18 22:30 | XMS_ITS | Continuity of Care Document ---
Author Name Unknown Organization [facility] Address [address] [place] [address] Phone Care Team Providers Care Cashier Tube Room Name Role Phone Fabiana DELGADO, Leif Unavailable [...] Date Office/Outpatient Visit,Est, Mod 2014 Office/Outpatient Visit,New, [facility] 2013 X-Ray Exam Of Neck Spine2-3 Views Office/outpatient visit,[facility], low 2010 Office/outpatient visit,[facility], low 2008 X-ray exam of neck spine2-3 views Office/outpatient visit,est, low 2008 Office/outpatient visit,est, [facility] 2008 X-ray exam lower spine 2-3 views 2008 Office/outpatient visit,[facility], low 2007 X-ray exam lower spine 2-3 [...] Copied on Encounter [facility], [address], [place], [place], [id number], [place] tel:[phone] [facility] No Information 8201 6 Fabiana Awan [facility], [address] [place] [address], [id number] , [place]. tel:[phone] Office/Outpat ient Visit,Est, Mod [facility], [address], [place], [place], [id number], [place] tel:[phone] [facility] Cervical spondylosis 0-201 5 Fabiana Awan [facility], [address] [place] [address], [id number] , [place]. tel:[phone] Referring Provider: Leif Jung, [facility] [address] [place] [address], [place], [address] . tel:[phone] Office/Outpat ient Visit,New, Low Z [facility], [address], [place], [address], [place] tel:[phone] No Information 4 Mehbod Amir. [facility], [address], [place], [place], [address] , [place]. [phone] Referring Provider: Pepito Dean, [facility] [address], [place], [address]. tel:[phone] Office/outpat ient visit,est, low Z [facility], [address], [place], [place], [facility], [place] tel:[phone] No Information 1 Mehbod Amir. [facility], [address] [place] [address] [address], [place], [place], [id number] , [place]. tel:[phone] Referring Provider: Pepito Dean, [facility] [address], [place], [address]. tel:[phone] Office/outpat ient visit,est, low Z [facility], [address], [place], [address], [place] tel:[phone] No Information Jan- 3-200 9 Mehbod Amir. [facility], [address] [facility] [address], [place], [place], [address] , [place]. tel:[phone] Referring Provider: Pepito Dean, [facility] [address], [place], [address]. tel:[phone] Office/outpat ient visit,est, low Z [facility], [address], [place], [address], [place] tel:[phone] No Information May- 6-200 9 Mehbod Amir. [facility], [address] [facility] [address], [place], [place], [id number] , [place]. [phone] Referring Provider: Pepito Dean, [facility] [address], [place], [address]. tel:[phone] Office/outpat ient visit,est, mod Z [facility], [address], [place], [address], [place] tel:[phone] No Information 200 9 Mehbod Amir. [facility], [address] [facility] [address], [place], [place], [address] , [place]. tel:[phone] Referring Provider: Pepito Dean, [facility], [place], [address]. tel:[phone] Office/outpat ient visit,est, low Z [facility], [address], [place], [address], [place] tel:[phone] No Information 200 8 Mehbod Amir. [facility], [address] [facility] [address], [place], [place], [address] , [place]. [phone] Referring Provider: Pepito Dean, [facility], [place], [address]. tel:[phone] Office/outpat ient visit,est, low Z [facility], [address], [place], [address], [place] tel:[phone] No Information 8 Mehbod Amir. [facility], [address] [facility] [address], [place], [place], [address] , [place]. [phone] Referring Provider: Pepito Dean, [facility], [place], [address]. tel:[phone] Z [facility], [address], [place], [place], [facility], [place] tel:[phone] No Information 8 Mehbod Amir. [facility], [address] [place] [address] [address], [place], [place], [id number] , [place]. tel:[phone] Referring Provider: Pepito Dean, [facility] [facility] [address], [place], [address]. tel:[phone] Z [facility], [address] [place] [address] 600, [place], [facility], tel:[phone] [facility] No Information 8 Mehbod Amir. [facility], [address] [place] [address] [address], [place], [place], [id number] , [place]. tel:[phone] Referring Provider: Pepito Dean, [facility] [address], [place], [address]. tel:[phone] Office/outpat ient visit,est, low Z [facility], [address] [address], [place], [place], [facility], [place] tel:[phone] No Information 7 Mehbod Amir. [facility], [address] [place] [address] [address], [place], [place], [id number] , [place]. [phone] Referring Provider: Pepito Dean [facility] [address], [place], [address]. tel:[phone] Office consultation, moderate Z [facility], [address] [place] [address], [facility], [place] tel:[phone] No Information 7 Mehbod Amir. [facility], [address] [place] [address] [address], [place], [place], [address] , [place]. [phone] Referring Provider: Pepito Dean, [facility] [facility] [address], [place], [address]. tel:[phone] Family History Family Member Type Diagnosis Age At Onset Problem (finding) Problem (finding) Payers Payer name Insurance type Covered democrat ID Authoriza tion(s) No Information Social History [...]
--- OUTSIDE RECORDS SUMMARY | 2023-08-18 22:30 | XMS_ITS | Continuity of Care Document ---
Author Name Unknown Organization [facility] Address [address] [address] [place] [address] Phone Care Team Providers Care Helper Metal Hanging Name Role Phone Slavador Mcknight MD, Parker Unavailable Unavailabl e Allergies, [...] Diagnoses Date Provider Providers Copied on Encounter [facility], [address] [address], [place], [id number], [place] tel:[phone] [facility] No Information 3 Salvador Canales. [address] [facility], [address], [id number], [place]. tel:[phone] [facility], [address] [address], [place], [id number], [place] tel:[phone] [facility] GI Symptoms or Concerns (chief complaint) Nausea and vomiting, intractabili ty of vomiting not specified, unspecified vomiting type 1 Steve Stockton. [address], [id number], [place]. tel:[phone] Dinorah Beaver MD. tel:[phone] ng Provider: Referral Self, USE FOR SELF REFERRALS. [facility], [address] [address], [facility] [place] [address], tel:[phone] [facility] No Information 1 Isaias Morales. [address] [facility], [address], [id number], [place]. tel:[phone] Offic/outpt E&m Estab Low-mod [facility], [address] [address], [place], [id number], [place] tel:[phone] [facility] GI Symptoms or Concerns (chief complaint) Right upper quadrant painDiarrhea Dietary counseling and surveillance Elevated blood-pressu re reading, w/o diagnosis of htn 6 Tristan Flor. [address], [id number], [place]. tel:[phone] Dinorah Beaver MD. tel:[phone] ng Provider: Dinorah Rodrigues, [address] [place], [address]. tel:[phone] [facility], [address] [address], [facility] [place], [address], [place] tel:[phone] [facility] Epigastric Pain Apr-2 9201 5 Willy Marie. [address] [facility], [facility] [address], [place], [place], [address], [place]. tel:[phone] Dinorah Beaver MD. tel:[phone] ng Provider: Dinorah Rodrigues, [address] [place], [address]. tel:[phone] [facility], [address] [address], [facility] [place], [address], [place] tel:[phone] [facility] Abd Pain Generalized Mar-3 0-201 5 Tristan Flor. [address] [facility], [facility] [address], [place], [address], [place]. tel:[phone] Dinorah Beaver MD. tel:[phone] Offic/outpt E&m Estab Low-mod [facility], [address] [address], [facility] [place], [address], [place] tel:[phone] [facility] GI Symptoms or Concerns (chief complaint) Epigastric PainConstipa tion UnspecifiedG astroparesis Dietary Surveil/coun tia Mar-2 6-201 5 Tristan Flor. [address] [facility], [facility] [address], [place], [address], [place]. tel:[phone] Dinorha Beaver MD. tel:[phone] ng Provider: Dinorah Rodrigues, [address] [place], [address]. tel:[phone] [facility], [address] [address], [place], [id number], [place] tel:[phone] [facility] Abd Pain Generalized Jul-2 5 Tristan Flor. [address] [facility], [address] [address], [place], [place], [address], [place]. tel:[phone] Offic/outpt E&m Estab Low-mod [facility], [address] [address], [place], [id number], [place] tel:[phone] [facility] GI Symptoms or Concerns (chief complaint) Gastroparesi sConstipatio n UnspecifiedD ietary Surveil/coun selGastropar esisConstipa tion, unspecifiedD ietary counseling and surveillance 5 Shahbaz Bush. [address], [id number], [place]. tel:[phone] Dinorah Beaver MD. tel:[phone] ng Provider: Dinorah Rodrigues, [address] [place], [address]. tel:[phone] [facility], [address] [address], [place], [address], [place] tel:[phone] [facility] DiarrheaDiar rheaNausea and vomitingDiar rheaDiarrhea Nausea And Vomiting Jul-0 5 Jamir Gaviria. [address] [facility], [facility] [address], [place], [place], [address], [place]. tel:[phone] Referring Provider: Dinorah Rodrigues, [address] [place], [address]. tel:[phone] Offic/outpt E&m New Mod-hi [facility], [address] [address], [place], [address], [place] tel:[phone] [facility] GI Symptoms or Concerns (chief complaint) Nausea And VomitingDiar rheaDietary Surveil/coun tia Jul-0 5 Tristan Flor. [address] [facility], [address] [address], [place], [place], [address], [place]. tel:[phone] Graciela caal MD. tel:[phone] wendy Beaver MD. tel:[phone] Provider: Dinorah Beaver MD E, [address] [place], [address]. tel:[phone] Offic/outpt E&m Estab Low-mod [facility], [address] [address], [place], [place], [address], [place] tel:[phone] [facility] Diarrhea (chief complaint) DiarrheaDiar carol 0 0 No Information Referring Provider: Graciela Shaikh, [address], [place], [address]. tel:[phone] [facility] [place], [address] [address], [place], [place], [address], [place] tel:[phone] [facility] Hemorrhoids NosDiarrheaR ectal Bleed/BRBPRH emorrhoids Nos 9 Claudy Mayo. [address], [id number], [place]. tel:[phone] Referring Provider: Graciela Shaikh, [address], [place], [address]. tel:[phone] Offic/outpt E&m [facility] Low-mod [facility], [address] [address], [place], [place], [address], [place] tel:[phone] [facility] Medication Refill (chief complaint) DiarrheaDiar carol Aug-0 1200 9 Claudy Mayo. [facility], [address], [id number], [place]. tel:[phone] Referring Provider: Graciela Shaikh, [address], [place], [address]. tel:[phone] Offic/outpt E&m Estab Low-mod [facility], [address] [address], [place], [place], [address], [place] tel:[phone] [facility] Diarrhea Apr-0 7-200 8 Claudy Mayo. [address] [place] [address], [id number], [place]. tel:[phone] Referring Provider: Maria Esther Dean, [address] [place] [address], [address]. tel:[phone] [facility] [place], [address] [address], [place], [place], [address], [place] tel:[phone] [facility] DiarrheaInco ntinenc-no Awareness May-0 7-200 7 Claudy Mayo. [address] [place] [address], [place], [place], [address], [place]. tel:[phone] Referring Provider: Graciela Shaikh, [address], [place], [address]. tel:[phone] Offic/outpt E&m Estab 5 Min [facility], [address] [address], [place], [place], [address], [place] tel:[phone] [facility] Diarrhea May-0 4-200 7 Claudy Mayo. [address] [place] [address], [place], [place], [address], [place]. tel:[phone] Referring Provider: Graciela Shaikh, [address], [place], [address]. tel:[phone] Offic/outpt E&m Estab Low-mod [facility], [address] [address], [facility] [place], [address], [place] tel:[phone] [facility] DiarrheaInco ntinenc-no Awareness May-0 1-200 7 Claudy Mayo. [address], [id number], [place]. tel:[phone] Referring Provider: Graciela Shaikh, [address], [place], [address]. tel:[phone] Offic/outpt E m Estab Low [facility], [address] [address], [place], [address], [place] tel:[phone] [facility] Diarrhea 6 Claudy Mayo. [address] [place] [address], [id number], [place]. tel:[phone] Referring Provider: Graciela Shaikh, [address], [place], [address]. tel:[phone] Offic/outpt E m Estab Min [facility], [address] [address], [place], [address], [place] tel:[phone] [facility] Diarrhea Fe 6 Claudy Mayo. [address] [place] [address], [id number], [place]. tel:[phone] Referring Provider: Graciela Shaikh, [address], [place], [address]. tel:[phone] Offic/outpt E m Estab Mod [facility], [address] [address], [place], [address], [place] tel:[phone] [facility] Diarrhea 2200 5 Claudy Mayo. [address] [place] [address], [place], [place], [address], [place]. tel:[phone] Offic/outpt E m Estab Mod [facility], [address] [address], [place], [address], [place] tel:[phone] [facility] Diarrhea Sep-2 0200 5 Claudy Mayo. [address] [place] [address], [place], [place], [id number], [place]. tel:[phone] Referring Provider: Graciela Shaikh, [address], [place], [address]. tel:[phone] [facility]ive [facility], [address] [address], [place], [place], [address], [place] tel:[phone] [facility] DiarrheaHema tochezia/graciela lili Sep-0 6200 5 No Information Referring Provider: Graciela Shaikh, [address], [place], [address]. tel:[phone] Offic/outpt E m Estab Mod [facility], [address] [address], [place], [place], [address], [place] tel:[phone] [facility] DiarrheaHema tochezia/graciela lili Dec-2 3200 5 No Information Referring Provider: Graciela Shaikh, [address], [place], [address]. tel:[phone] [facility], [address] [address], [place], [place], [address], [place] tel:[phone] [facility] No Information 5-200 4 No Information Referring Provider: Graciela Shaikh, [address], [place], [address]. tel:[phone] Family History Family Member Type Diagnosis Age [...] bi-di rectional interface ; Source: Other Registry Afluria Qd administered Note: M IIC bi-directional [...] ional interface ; Source: Other Registry Novel [id number], all formulations administered Note: MI[facility] bi-direct ional [...] Registry Payers Payer name Insurance type Covered republican ID Authoriza tion(s) Blue [employer] [place] [employer] [place] [id number] Social History Type Description Quantity Date Captured [...] Date Complaint History Of Prese nt Illness GI Symptoms or Concerns GI [...] and she since disconnected it. Colonoscopy at [facility] GI Symptoms or Concerns Patient is a [...]
--- OUTSIDE RECORDS SUMMARY | 2023-08-18 22:31 | XMS_ITS | Encounter Summary ---
Author Name Unknown Organization [place] Address [address] [facility] [place] [address] Care Team Providers Care Call Center Team Leader Name Role Phone Mili Barajas APRN TECHNICAL PHOTOGRAPHER Primary Care Provider Kizzy Taylor APRN TECHNICAL PHOTOGRAPHER Unavailable Unavailable Encounter Details Date Type Department Care Team (Late st Contact Info) Description 11/02/2019 [facility] Medical Advice [facility] [address] [place] [address] Monica Martinez Social History Tobacco Use Types Packs/Day Years Used Date Smoking Tobacco: Former Cigarettes 1 40 Q uit: 2012 Smokeless Tobacco: Never Alcohol Use Standard Drinks/Week Comments No 0 (1 standard drink = 0.6 oz pur e alcohol) PHQ-2 Answer Date Recorded PHQ-2 Score 2 09/20/2019 Sex and Gender Information Value Date Recorded Sex Assigned at Not on file Gender Identity Not on file Sexual Orientation Not on file documented as of this encounter Plan of Treatment Not on file documented as of this encounter Visit Diagnoses Not on filedocumented in this encounter Additional Health Concerns Assessment Noted Time PHQ-9 Depression Total Score: 9 09/20/19 20 8:49 AM CDT documented as of this encounter Care Teams Call Center Team Leader Relationship Specialty Start Date End Date Mili Barajas APRN TECHNICAL PHOTOGRAPHER [facility] [address] [address] PCP - General Nurse Practitioner 08/24/19 Kizzy Taylor APRN TECHNICAL PHOTOGRAPHER Assigned Sleep Provider 10/21/20 05/11/21 documented as of this encounter
--- OUTSIDE RECORDS SUMMARY | 2023-08-18 22:31 | XMS_ITS | Encounter Summary ---
Author Name Unknown Organization [place] Address [address] [place] [address] Care Team Providers Care Hha Name Role Phone Barajas, Milishan Lopez APRN EYEGLASS CUTTER Primary Care Provider Kizzy Taylor APRN EYEGLASS CUTTER Unavailable Unavailable Encounter Details Date Type Department Care Team (Late st Contact Info) Description 09/20/2019 Telephone [facility] [address] [place] [phone] Heavenly Bravo, [facility] [address] [place], [place] [address] Social History Tobacco Use Types Packs/Day Years [...] on file Sexual Orientation Not on file COVID-19 Exposure Response Date Recorded In the last month, have you been in contact with someone who was confirmed or suspected to have Coronavirus / COVID-19? No / Unsure 08/22/2019 1:27 PM CDT documented as of this encounter Miscellaneous Notes * Telephone Encounter - Heavenly Bravo LICSW - 09/20/2019 9:48 AM CDT Tester Operator spoke with pt who contacted program to state she was having hyperarousal, anxiety and nightmares related to anxiety triggers in group. She did not want to return to the group due to getting triggered by male peer. She has outpatient services at [facility] where she has a Trauma Group on Tuesdays, a therapist-Etienne Barajas and a medication management provider, Mili Barajas. She was seeking a DBT focus group. Tester Operator provided DBT resources in her area. [facility] does have a DBT skill Group that meets x2 per week. She will inquire with her outpatient therapist, Etienne Barajas tomorrow at her appointment. We completed the JSOE A-7 and PHQ-9. discharge summary to be mailed. Denies S/I or safety issues currently. RACHAEL Apodaca, [facility] Licensed Psychotherapist documented in this encounter Plan of Treatment Not on file documented as of this encounter Visit Diagnoses Not on filedocumented in this encounter Additional Health Concerns Assessment Noted Time PHQ-9 Depression Total Score: 9 09/20/19 20 8:49 AM CDT documented as of this encounter Care Teams Hha Relationship Specialty Start Date End Date Mili Barajas APRN EYEGLASS CUTTER [address] [place] [address] PCP - General Nurse Practitioner 08/24/19 Kizzy Taylor APRN EYEGLASS CUTTER Assigned Sleep Provider 10/21/20 05/11/21 documented as of this encounter
--- OUTSIDE RECORDS SUMMARY | 2023-08-18 22:31 | XMS_ITS | Encounter Summary ---
Author Name Unknown Organization [place] Address [facility] [place] [address] Care Team Providers Care Health Occupations Instructor Name Role Phone BarajasMili richmond Jessica DE LA ROSA JOINT SUPERVISOR Primary Care Provider Kizzy Taylor APRN JOINT SUPERVISOR Unavailable Unavailable Encounter Details Date Type Department Care Team (Late st Contact Info) Description 08/30/2019 [facility] Treatment Plan [facility] [address] [facility] [address] [place] [address] Praneeth Islas MD [facility] [address] [facility] [address] [place] [address] Heavenly Bravo, [employer]OR AND CONTROLS TESTER [facility] [address] [place] [address] Major depressive disorder, recurrent episode, severe (H) Social History Tobacco Use Types Packs/Day Years Used Date Smoking Tobacco: Former Cigarettes 1 40 Q uit: 2012 Smokeless Tobacco: Never Alcohol Use Standard Drinks/Week Comments No 0 (1 standard drink = 0.6 oz pur e alcohol) PHQ-2 Answer Date Recorded PHQ-2 Score 3 08/31/2019 Sex and Gender Information Value Date Recorded Sex Assigned at Not on file Gender Identity Not on file Sexual Orientation Not on file COVID-19 Exposure Response Date Recorded In the last month, have you been in contact with someone who was confirmed or suspected to have Coronavirus / COVID-19? No / Unsure 08/22/2019 1:27 PM CDT documented as of this encounter Plan of Treatment Not on file documented as of this encounter Visit Diagnoses Diagnosis Major depressive disorder, recurrent episode, severe (H) Major depressive disorder, recurrent episode, severe, without mention of psychotic behavior documented in this encounter Additional Health Concerns Assessment Noted Time PHQ-9 Depression Total Score: 16 020 7:47 AM CDT documented as of this encounter Care Teams Health Occupations Instructor Relationship Specialty Start Date End Date Mili Barajas APRN JOINT SUPERVISOR [facility] [address] [place] [address] PCP - General Nurse Practitioner 08/24/19 Kizzy Taylor APRN JOINT SUPERVISOR Assigned Sleep Provider 10/21/20 05/11/21 documented as of this encounter
--- OUTSIDE RECORDS SUMMARY | 2023-08-18 22:31 | XMS_ITS | Encounter Summary ---
Author Name Unknown Organization [place] Address [address] [facility] [place] [address] Care Team Providers Care Scooper Name Role Phone Mili Barajas Jessica DE LA ROSA COMPUTER SCIENCE TEACHER Primary Care Provider Kizzy Taylor APRN, CNP Unavailable Unavailable Encounter Details Date Type Department Care Team (Late st Contact Info) Description 11/03/2019 [facility] Medical Advice [facility] [address] [address] Kizzy Taylor APRN CNP Social History Tobacco Use Types Packs/Day Years Used Date Smoking Tobacco: Former Cigarettes 1 40 Q uit: 2011 Smokeless Tobacco: Never Alcohol Use Standard Drinks/Week Comments No 0 (1 standard drink = 0.6 oz pur e alcohol) PHQ-2 Answer Date Recorded PHQ-2 Score 2 09/20/2019 Sex and Gender Information Value Date Recorded Sex Assigned at Not on file Gender Identity Not on file Sexual Orientation Not on file documented as of this encounter Miscellaneous Notes * Telephone Encounter - Dinorah Rushing MA - 11/07/2019 3:40 PM CDT Sent documented in this encounter Plan of Treatment Not on file documented as of this encounter Visit Diagnoses Not on filedocumented in this encounter Additional Health Concerns Assessment Noted Time PHQ-9 Depression Total Score: 9 09/20/19 20 8:49 AM CDT documented as of this encounter Care Teams Scooper Relationship Specialty Start Date End Date Mili Barajas APRN COMPUTER SCIENCE TEACHER [facility] [address] [place] [address] PCP - General Nurse Practitioner 08/24/19 Kizzy Taylor APRN COMPUTER SCIENCE TEACHER Assigned Sleep Provider 10/21/20 05/11/21 documented as of this encounter
--- OUTSIDE RECORDS SUMMARY | 2023-08-18 22:31 | XMS_ITS | Encounter Summary ---
Author Name Unknown Organization [facility] Address [address] [place] [address] Care Team Providers Care Research Consultant Name Role Phone JourdanRhea Mariann MENSAH Primary Care Provider Reason for Visit * Reason Comments Follow-up Encounter Details Date Type Department Care Team (Late st Contact Info) Description 06/30/2023 Telephone [facility] [address] [facility] [address] Laure Sanderson MBBS [address] [place] [address] Follow-up Social History Tobacco Use Types Packs/Day Years Used Date Smoking Tobacco: Former Cigarettes Q uit: 05/11/1996 Smokeless Tobacco: Never Alcohol Use Standard Drinks/Week Comments No 0 (1 standard drink = 0.6 oz pur e alcohol) PHQ-2 Answer Date Recorded PHQ-2 Score 6 11/18/2021 Sex and Gender Information Value Date Recorded Sex Assigned at Female 11/05/2020 11:35 AM CDT Gender Identity Female 11/05/2020 11:35 AM CDT Sexual Orientation Straight 11/05/2020 11 :35 AM CDT documented as of this encounter Nursing Notes * Rohini Ro RN - 06/30/2023 11:43 AM CST Pt requesting refill for Ozempic. Currently taking 0.5mg, previous sig states 0.25mg. Rx pended to reflect new dosing, please sign if appropriate. RAL PROFESSIONAL documented in this encounter Plan of Treatment Upcoming Encounters Date Type Department Care Team (Late st Contact Info) Description 09/29/2023 10:00 AM CDT Appointment [facility] [address] [place] [address] Laure Sanderson MBBS [address] [place] [address] documented as of this encounter Visit Diagnoses Diagnosis Controlled type 2 diabetes mellitus without complication, without long-term current use of insulin (HRC) documented in this encounter Care Teams Research Consultant Relationship Specialty Start Date End Date Rhea Soliman DO [address] [place] [address] PCP - General Family Practice 01/24/19 documented as of this encounter
--- OUTSIDE RECORDS SUMMARY | 2023-08-18 22:31 | XMS_ITS | Encounter Summary ---
Author Name Unknown Organization [place] Address [address] [facility] [place] [address] Care Team Providers Care Senior Storage Administrator Name Role Phone Rhea Soliman Primary Care Provider [phone] Mili Barajas APRN CAFE ASSISTANT Primary Care Provider Kizzy Taylor APRN CAFE ASSISTANT Unavailable Unavailable Reason for Visit * Reason Onset Date Comments MH/CD Inpatient 08/22/2019 Encounter Details Date Type Department Care Team ([facility] st Contact Info) Description 08/22/2019 Telephone [facility] Intake [address] [place] [address] Generic, Behavioral Intake, MH/CD Inpatient Social History Tobacco Use Types Packs/Day Years Used Date Smoking Tobacco: Former Cigarettes 1 40 Q uit: 2012 Smokeless Tobacco: Never Alcohol Use Standard Drinks/Week Comments No 0 (1 standard drink = 0.6 oz pur e alcohol) PHQ-2 Answer Date Recorded PHQ-2 Score 4 08/22/2019 Sex and Gender Information Value Date Recorded [...] encounter Miscellaneous Notes * Telephone Encounter - Werner Lee - 08/22/2019 10:14 AM CDT [facility] B: Pt being brought to [facility] ED by . Pt hx depression, ptsd past 20 years, hx sx attempt and 3x inpatient admits. Pt worsening depression, ptsd symptoms past month. Pt has overwhelming feeling of isolation, hyper vigilante, Depressed, ongoing Si with thghts to odose. has patients meds. Pt cannot contract safety. A: dx depression, ptsd, cooperative. R: please contact Keith in intake if needing to contact Soledad from the [facility] for any questions. . documented in this encounter Plan of Treatment Not on file documented as of this encounter Visit Diagnoses Not on filedocumented in this encounter Additional Health Concerns Assessment Noted Time PHQ-9 Depression Total Score: 16 020 7:47 AM CDT documented as of this encounter Care Teams Senior Storage Administrator Relationship Specialty Start Date End Date Rhea Soilman PCP - General 01/21/17 08/23/19 Mili Barajas APRN CAFE ASSISTANT [facility] [address] [place] [address] [place] [address] PCP - General Nurse Practitioner 08/24/19 Kizzy Taylor APRN CAFE ASSISTANT Assigned Sleep Provider 10/21/20 05/11/21 documented as of this encounter
--- OUTSIDE RECORDS SUMMARY | 2023-08-18 22:31 | XMS_ITS | Clinical Summary ---
Author Name Unknown Organization [facility] Address [address] [place] [address] Care Team Providers Care Bulwark Carpenter Name Role Phone Rhea Soliman Primary Care Provider [phone] Source Comments You are receiving this document as you are listed as the primary care provider,follow-up provider, or the patient has been referred to you for consultation.This is in compliance with the Medicare andMedicaid EHR Incentive Program,which states Providers who transition their patient to another setting of careor provider of care or refers their patient to another provider of care shouldprovide summary care record for each transition of care or referral. [facility] Allergies Active Allergy Reactions Criticality Noted Date Comments Aripiprazole Other, see comments,Chest Pain 01/25/2014 Chest pain , Aspirin Hives High 01/25/2014 Quinolones Anaphylaxis High 04/21/2012 Ciprofloxacin Anaphylaxis High 01/25/2014 Codeine Hives High 01/25/2014 Rosuvastatin Calcium Gastrointestinal 2 Ergotamine Gastrointestinal,Nausea 01/25/2014 Exenatide 01/26/2015 PN: Bruise, pain Fluconazole Gastrointestinal,Isabell phyl axis High 01/25/2014 Iodides Rash 01/25/2014 Iodine Anaphylaxis High 04/21/2012 Latex Rash 02/15/2019 Blisters Metformin Gastrointestinal 04/21/2012 Pregabalin Anaphylaxis High 01/25/2014 Rosuvastatin Hives 01/25/2014 Sulfa Antibiotics Anaphylaxis High 01/25/2014 Oxcarbazepine Edema,generalized 07/09/2016 Verapamil Anaphylaxis High 01/25/2014 Cariprazine Other, see comments 04/13/2019 Feet swelling Wound Dressing Adhesive Other, see comments 01/25/2014 PN: blisters Medications Medication Sig Dispensed Refills Start Date End Date Status Loperamide HCl (AKA IMODIUM A-D) 2 MG tablet Take 1 Tablet (2 mg) by mouth 4 times daily as needed. Active ALBUterol sulfate HFA 108 (90 BASE) MCG/ACT inhaler Inhale 2 Puffs every 6 hours as needed for Wheezing (Inhale 2 puffs every 6 hours as needed for Wheezing.). 01/25/2014 Active ondansetron (ZOFRAN) 4 MG tablet Take 1 Tablet (4 mg) by mouth every 8 hours as needed for Nausea or Vomiting (Take 4 mg by mouth every 8 hours as needed for Nausea or Vomiting.). 01/25/2014 Active montelukast (SINGULAIR) 10 MG tablet Take 1 Tablet (10 mg) by mouth every evening. Active vortioxetine (TRINTELLIX) 5 MG tablet Take 1 Tablet (5 mg) by mouth daily. Active acetone urine (KETOSTIX) test stripIndications:Co ntrolled type 2 diabetes mellitus without complication, without long-term current use of insulin (HRC) Use to test as needed. 20 Each 11 05/31/2020 Active blood glucose (CONTOUR NEXT TEST) test stripIndications:Co ntrolled type 2 diabetes mellitus without complication, without long-term current use of insulin (HRC) Use to test daily. Use as directed. 100 Strip 3 05/31/2020 Active lancets (ADY MICROLET)Indication s:Controlled type 2 diabetes mellitus without complication, without long-term current use of insulin (HRC) Use 1 Each to test daily. 100 Each 3 05/31/2020 Active Blood Glucose Monitoring Suppl (CONTOUR NEXT EZ) w/Device KITIndications:Cont rolled type 2 diabetes mellitus without complication, without long-term current use of insulin (HRC) Use 1 Each to test daily. Use to test one time daily. 1 Kit 05/31/2020 Active Temazepam (AKA RESTORIL) 22.5 MG capsule TAKE 1 CAPSULE BY MOUTH EVERYDAY AT BEDTIME 06/12/2020 Active lamoTRIgine (LAMICTAL) 100 MG tablet TAKE 2 TABLETS EVERY MORNING & 2 TABLETS AT NIGHT 10/22/2020 Active Continuous Blood Gluc Sensor (FREESTYLE VINH 2 SENSOR)Indications: Controlled type 2 diabetes mellitus without complication, without long-term current use of insulin (HRC),Essential (primary) hypertension (HRC),Obesity, unspecified obesity severity, unspecified obesity type (HRC),Hypothyroidis m (acquired) (HRC),Gastric bypass status for obesity,Hyperlipide eduard, unspecified hyperlipidemia type (HRC) Use 1 sensor every 14 days 6 Each 3 08/19/2022 Active levothyroxine (SYNTHROID) 88 MCG tabletIndications:C ontrolled type 2 diabetes mellitus without complication, without long-term current use of insulin (HRC),Essential (primary) hypertension (HRC),Obesity, unspecified obesity severity, unspecified obesity type (HRC),Hypothyroidis m (acquired) (HRC),Gastric bypass status for obesity,Hyperlipide eduard, unspecified hyperlipidemia type (HRC) Take 1 Tablet (88 mcg) by mouth daily. 90 Tablet 3 08/19/2022 Active atorvastatin (LIPITOR) 40 MG tabletIndications:C ontrolled type 2 diabetes mellitus without complication, without long-term current use of insulin (HRC),Essential (primary) hypertension (HRC),Obesity, unspecified obesity severity, unspecified obesity type (HRC),Hypothyroidis m (acquired) (HRC),Gastric bypass status for obesity,Hyperlipide eduard, unspecified hyperlipidemia type (HRC) Take 1 Tablet (40 mg) by mouth daily at bedtime. 90 Tablet 3 08/19/2022 Active Continuous Blood Gluc Litigator (FREESTYLE VINH 2 READER)Indications: Controlled type 2 diabetes mellitus without complication, without long-term current use of insulin (HRC) Use as directed. 1 Each 11/28/2022 Active acarbose (PRECOSE) 25 MG tabletIndications:C ontrolled type 2 diabetes mellitus without complication, without long-term current use of insulin (HRC) Take 1 Tablet (25 mg) by mouth three times a day with meals. 270 Tablet 3 03/31/2023 Active semaglutide (OZEMPIC, 0.25/0.5 MG/DOSE,) 2 MG/1.5ML injectionIndication s:Controlled type 2 diabetes mellitus without complication, without long-term current use of insulin (HRC) Inject 0.5 mg subcutaneously once a week. 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 PTSD (post-traumatic stress disorder) 06/18/2021 JOSE A (generalized anxiety disorder) 06/18/2021 Depressive disorder 06/18/2021 S/P gastric bypass 06/18/2021 Overview: Surgery on 05/23/[address] [place] [address] Kenny Obsessive-compulsive disorder 06/18/2021 Type 2 diabetes mellitus, uncontrolled 6 Primary hypothyroidism 08/16/2014 Hyperlipidemia 08/16/2014 Essential (primary) hypertension 08/16/2014 Obesity 08/16/2014 Type 2 diabetes mellitus, controlled 01/25/2014 Overview: Type II or unspecified type diabetes mellitus without mention of complication, not stated as uncontrolled (HRC) Encounters Date Type Department Care Team Description 07/17/2023 Telephone [place] [address] [place] [address]. [place] [address] Laure Sanderson MBBS Forms (Medtatamy) 07/09/[address] [place] [address] Laure Sanderson MBBS Forms (Jake) 06/30/2023 Telephone [place] [address] [place] [address]. [place] [address] Laure Sanderson MBBS Follow-up from Last 3 Months Immunizations Name Administration Dates Next Due Influenza IIV4 (Quadrivalent ) 0.5mL (22728) 02/06/2021,03/10/2017,03/16/2015, 014 Pfizer Monovalent 12+ Purple Top 03/26/2021,08/09,07/30/2020 Social History Tobacco Use Types Packs/Day Years [...] Orientation Straight 11/05/2020 11 :35 AM CDT Last Filed Vital Signs Vital Sign Reading Time Taken Comments Blood Pressure 114/49 03/31/2023 9:36 AM [employer] Pulse 80 03/31/2023 9:36 AM [employer] Temperature 36.8 ??C (98.3 ??F) 11/18/2021 1:54 PM CD T Respiratory Rate 20 02/15/2019 12:1 5 PM CDT Oxygen Saturation 96% 02/15/2019 12: 15 PM CDT Inhaled Oxygen Concentration - - Weight 70.2 kg (154 lb 11.2 oz) 03/31/2023 9:36 AM [employer] Height 154.3 cm (5' 0.75) 03/31/2023 9:36 AM CS T Body Mass Index 29.47 03/31/2023 9:36 AM [employer] Plan of Treatment Upcoming Encounters Date Type Department Care Team (Late st Contact Info) Description 09/29/2023 10:00 AM CDT Appointment [facility] [address] [place] [address] Laure Sanderson, DANITABS [address] [place], [place] [address] Health Maintenance Due Date Last Done Comments Cervical Cancer Screening Due 1960 Colon Cancer Screening Plan Due 1960 Diabetes: Foot Exam 1960 Hep C Screening (Preventive Services) 1960 Medicare Annual Wellness Visit 1960 Diabetes: Eye Exam 06/21/2021 06/21/2020 Diabetes: Lipid Panel 12/01/2022 12/01/2017 , 10/21/2016, 11/20/2015, Additional history exists Zoster/Shingles (3 of 3) 05/06/2023 03/11/2023, 11/08 Diabetes: HGBA1C 07/01/2023 03/31/2023, 03/2023, 07/24/2022, Additional history exists Diabetes: Creatinine 08/20/2023 08/19/2022, 06/18/2021, 06/01/2018, Additional history exists Diabetes: Urine Microalbumin 08/20/2023 08/19/2022, 11/07/2020, 06/01/2018, Additional history exists Mammogram 02/03/2024 02/02/2023, 01/10, 01/30/2021, Additional history exists Lung Cancer Screening 02/19/2024 02/18/2023 , 02/18/2022, 01/30/2021, Additional history exists DTaP/Tdap/Td (3 - Tdap) 09/24/2027 09/24/19 18, 01/11/2010, 02/12/2001 Pneumococcal 65+ Yrs Completed 10/16/2021, 04/10/20 08 Influenza Completed 01/28/2023, 09/0 12/2021, 02/06/2021, Additional history exists Dexa Completed 02/02/2023 COVID-19 Vaccine Completed 03/06/2023, , 10/16/2021, Additional history exists HepA Aged Out No longer eligi ble based on patient's age to complete this topic HepB Aged Out No longer eligi ble based on patient's age to complete this topic Hib Aged Out No longer eligi ble based on patient's age to complete this topic IPV (Polio) Aged Out No longer eligi ble based on patient's age to complete this topic MCV4 Aged Out No longer eligi ble based on patient's age to complete this topic Procedures Procedure Name Priority Date/Time Associated Diagnosis Comments HGB A1C Routine 03/31/2023 9:13 AM [employer] Controlled type 2 diabetes mellitus without complication, without long-term current use of insulin (HRC) CT CHEST WO IV CONT LUNG SCREENING Routine 02/18/2023 9:25 AM CDT MM MAMMOGRAM SCREENING BILAT W 3D OUSMANE W CAD Routine 02/02/2023 9:29 AM CDT BASIC METABOLIC PANEL Routine 08/19/2022 4:15 PM CDT Controlled type 2 diabetes mellitus without complication, without long-term current use of insulin (HRC) Essential (primary) hypertension (HRC) Obesity, unspecified obesity severity, unspecified obesity type (HRC) Hypothyroidism (acquired) (HRC) Gastric bypass status for obesity Hyperlipidemia, unspecified hyperlipidemia type (HRC) ALBUMIN/CREAT RATIO Routine 08/19/2022 4:15 PM CDT Controlled type 2 diabetes mellitus without complication, without long-term current use of insulin (HRC) Essential (primary) hypertension (HRC) Obesity, unspecified obesity severity, unspecified obesity type (HRC) Hypothyroidism (acquired) (HRC) Gastric bypass status for obesity Hyperlipidemia, unspecified hyperlipidemia type (HRC) ELHAM (DIABETIC EYE EXAM) 06/21/2020 LDL CHOLESTEROL, DIRECT MEASURED Routine 12/01/2017 3:05 PM CDT Type 2 diabetes mellitus without complication, with long-term current use of insulin (HRC) from Last 3 Months or Most Recently Relevant to Health Maintenance Results * Hgb A1C (03/31/2023 9:13 AM [facility]) Hemoglobin A1C (Rapid) 5.4 <=5.6 % 03/31/2023 9:41 AM [facility] Performing Location Endo A BU 03/31/2023 9:41 AM [facility] Estimated Average Glucose (Calc) 108 < 117 mg/dL 03/31/2023 9:41 AM [facility] Comment:Estimated average gl ucose (eAG) converts A1c into glucose units (mg/dL) and estimates average glucose over the past approximately 3 months. The eAG reference interval (<117 mg/dL) corresponds to an A1c of <5.7%. Blood Capillary / Unknown 03/31/2023 9:13 AM [employer] 03/31/2023 9:14 AM [facility] - 03/31/2023 9:41 AM [employer] The test method used for this Hemoglobin A1c result can experience interference from elevated hemoglobin and other hemoglobin variants. In patients with results that do not correlate clinically, contact the lab for further direction. Laure Garciadenny SAMAYOA LAB_1 Performing Organization Address [facility]/ZIP Co de Phone Number [facility] [address] [place] [address], [facility] [phone] * (ABNORMAL) BMP (08/19/2022 4:15 PM CDT) Sodium 145 136 - 145 mmol/L 08/19/2022 5:08 PM [facility] Potassium 4.5 3.5 - 5.1 mmol/L 08/19/2022 5:08 PM [facility] Chloride 107 98 - 109 mmol/L 08/19/2022 5:08 PM [facility] CO2 30(H) 20 - 29 mmol/L 08/19/2022 5:08 PM [facility] Anion Gap 8 7 - 16 mmol/L 08/19/2022 5:08 PM [facility] Calcium 9.2 8.4 - 10.4 mg/dL 08/19/2022 5:08 PM [facility] BUN 7 7 - 26 mg/dL 08/19/2022 5:08 PM [facility] Creatinine 0.70 0.55 - 1.02 mg/dL 08/19/2022 5:08 PM [facility] Glucose 70 70 - 100 mg/dL 08/19/2022 5:08 PM [facility] Comment:The given reference range is for the fasting state. Non-fasting reference range for glucose is 70 - 180 mg/dL. Hours Fasting 0 08/19/2022 5:08 PM [facility] GFR, Estimated >60 >60 mL/min/1.7 3m2 08/19/2022 5:08 PM [facility] Blood Venipuncture / Unknown 08/19/2022 4:15 PM CDT 08/19/2022 4:15 PM CDT Laure Dean Maria E [facility] LAB_1 Performing Organization Address City/[facility]/ZIP Co de Phone Number [facility] [address] [place] [address], [facility] [phone] * Albumin/Creatinine Ratio,Random Urine (08/19/2022 4:15 PM CDT) Albumin/Creati nine Ratio, Urine, Random 5 <30 mg/g 08/19/2022 4:48 PM CDT [facility] Albumin, Urine, Random 5.7 mg/L 08/19/2022 4:48 PM CDT [facility] Creatinine, Urine, Random 104 >20 mg/dL mg/dL 08/19/2022 4:48 PM CDT [facility] Urine Non-blood Collection / Unknown 08/19/2022 4:15 PM CDT 08/19/2022 4:15 PM CDT Laure SAMAYOA LAB_1 Performing Organization Address [facility] Co de Phone Number [facility] [id number] [place] [address], [facility] [phone] * ELHAM (DIABETIC EYE EXAM) (06/21/2020) Interface Provider DUMMY/OTHER/AR * Direct LDL (12/01/2017 3:05 PM CDT) LDL Direct 99 0 - 130 mg/dL PN SOFT 12/01/2017 3:05 PM CDT 12/01/2017 3:05 PM CDT Narrative PN SOFT - 12/01/2017 3:54 PM CDT Performed at [facility], [address] [place] [address] CLIA number [id number] Dalia Velázquez MD LAB_1 Performing Organization Address [facility]/ZIP Co de Phone Number PN SOFT [address] [place] [address] from Last 3 Months or Most Recently Relevant to Health Maintenance Care Teams Bulwark Carpenter Relationship Specialty Start Date End Date Rhea Soliman DO [address] [place] [address] PCP - General Family Practice 01/24/19
--- OUTSIDE RECORDS SUMMARY | 2023-08-18 22:31 | XMS_ITS | Encounter Summary ---
Author Name Unknown Organization [facility] Address [address] [place] [address] Care Team Providers Care Leadership Development Instructor Name Role Phone Rhea Soliman Primary Care Provider Reason for Visit * Reason Comments Forms [place] Encounter Details Date Type Department Care Team (Late st Contact Info) Description 07/09/2023 Telephone [facility] [address] Endocrinology [address] [facility] [place] [address] Laure Sanderson MBBS [address] [place] [address] Forms (Jake) Social History Tobacco Use Types Packs/Day Years [...] Nursing Notes * Rohini Ro RN - 07/13/2023 3:51 PM CST Chart notes from 03/31/23 apt faxed to [place] #[phone]. H ADVOCATE * Dana Hawk - 07/10/2023 10:43 AM CST Forms completed faxed to [place] at [phone] H ADVOCATE * Dana Hawk - 07/09/2023 8:13 PM CST Received forms from Jake sent to Dr. Sanderson for completion H ADVOCATE documented in this encounter Plan of Treatment Upcoming Encounters Date Type Department Care Team (Late st Contact Info) Description 09/29/2023 10:00 AM CDT Appointment [facility] [id number] [place] [phone] Laure Sanderson MBBS [address] [place] [address] documented as of this encounter Visit Diagnoses Not on filedocumented in this encounter Care Teams Leadership Development Instructor Relationship Specialty Start Date End Date Rhae Soliman DO [address] [place] [address] PCP - General Family Practice 01/24/19 documented as of this encounter
--- OUTSIDE RECORDS SUMMARY | 2023-08-18 22:31 | XMS_ITS | Encounter Summary ---
Author Name Unknown Organization [facility] Address [address] [facility] [place] [address] Care Team Providers Care Hydraulic Strainer Operator Name Role Phone Rhea Soliman Primary Care Provider [phone] Mili Barajas APRN SMASH PIECER Primary Care Provider Kizzy Taylor APRN SMASH PIECER Unavailable Unavailable Reason for Visit * Reason Onset Date Comments Outpatient 08/18/2019 Encounter Details Date Type Department Care Team (Late st Contact Info) Description 08/18/2019 Telephone [facility] Behavioral Health Intake [address] [place] [address] Generic, Behavioral IntakeMD Outpatient Social History Tobacco Use Types Packs/Day Years [...] encounter Miscellaneous Notes * Telephone Encounter - Cherry Laurent - 09/22/2019 7:36 AM CDT ----- Message from EFFIE Lima sent at 09/22/2019 6:48 AM CDT ----- Regarding: Please remove from KELLY 55+ B2 Pt has discharged. Please remove from 55+ KELLY - B2 track. Thanks you * Telephone Encounter - Tamika Michael - 08/31/2019 7:31 AM CDT ----- Message from EFFIE Lima sent at 08/29/2019 4:04 PM CDT ----- Regarding: New B2 start Thursday Patient Name: ?? Location of programmin+ [facility] Start Date:08/31/19 Group: (BHxxxxx on #days of the week# at #start time to end time#) 55+_ B2 T,W,F 1-4 Provider: (name of MD) Roshan Number of visits to be scheduled: 12 weeks, 36 visits Length/Duration of Appointment in minutes: 180 min Visit Type (VIDEO/TELEPHONE/IN-PERSON): video visit new, video return Additional notes: * Telephone Encounter - Joseph Osei - 08/18/2019 3:42 PM CDT [facility] [employer] [facility] for Pt. The appt is 08/22/19 at 7:30am Sent for [place] documented in this encounter Plan of Treatment Not on file documented as of this encounter Visit Diagnoses Not on filedocumented in this encounter Care Teams Hydraulic Strainer Operator Relationship Specialty Start Date End Date Rhea Soliman PCP - General 01/21/17 08/23/19 Mili Barajas APRN SMASH PIECER [facility] [address] [place] [address] [place] [address] PCP - General Nurse Practitioner 08/24/19 Kizzy Taylor APRN SMASH PIECER Assigned Sleep Provider 10/21/20 05/11/21 documented as of this encounter
--- OUTSIDE RECORDS SUMMARY | 2023-08-18 22:31 | XMS_ITS | Encounter Summary ---
Author Name Unknown Organization [facility] Address [address] [place] [address] Care Team Providers Care Buhr Dresser Name Role Phone Rhea Soliman Primary Care Provider [phone] Reason for Visit * Reason Comments Forms [place] Encounter Details Date Type Department Care Team (Late st Contact Info) Description 07/17/2023 Telephone [facility] [address] Endocrinology [address] [facility] [place] [address] Laure Sanderson MBBS [address] [place] [address] Forms (General Assembly) Social History Tobacco Use Types Packs/Day Years [...] as of this encounter Nursing Notes * Dana Hawk - 07/19/2023 7:07 AM CDT Forms completed faxed to [employer] at [phone]. * Dana Hawk - 07/17/2023 6:27 AM CST Received forms from [employer] faxed to Dr. Sanderson for review and completion [employer] documented in this encounter Plan of Treatment Upcoming Encounters Date Type Department Care Team (Late st Contact Info) Description 09/29/2023 10:00 AM CDT Appointment [facility] [address] [place] [address] Laure Sanderson MBBS [address] [place] [address] documented as of this encounter Visit Diagnoses Not on filedocumented in this encounter Care Teams Buhr Dresser Relationship Specialty Start Date End Date Rhea Soliman DO [address] [place] [address] PCP - General Family Practice 01/24/19 documented as of this encounter
== END 2023-08-18 22:47 | disposition home or self-care (01) ==
LOC: ED 22:27
PROVIDERS: Emergency Provider Family Medicine; PCP Family Medicine
DX: S80.02XA Contusion of left knee, initial encounter (principal)
CPT/HCPCS: 73560; 99283; 99284

== ENCOUNTER 2024-09-19 11:15 | Outpatient (RCR) | payer MEDICARE, BC, SELFPAY | END 2024-11-09 12:12 | disposition home or self-care (01) | PROVIDERS: PCP Family Medicine; Visit Provider Orthopaedic Surgery | DX: M70.72 Other bursitis of hip, left hip (principal); M70.71 Other bursitis of hip, right hip; Z51.89 Encounter for other specified aftercare | CPT/HCPCS: 97110; 97112; 97161 ==